=== PATIENT | male | born 1970 | race Caucasian/White ===

== ENCOUNTER 2019-11-30 15:07 | Emergency (ER) | payer BC, SELFPAY ==
[2019-11-30 15:07] VITALS: BP 154/93; PULSE 87; RESP 16; TEMP 36.4; O2SAT 99; BMI 25.1
--- NOTE | 2019-11-30 15:36 | XR_ITS ---
WS: [id number] Facial bones, 3 views, 11/30/2019 Clinical Data: injury Comparison: None. Findings: The facial bones are intact. The orbits show no fractures. The sinuses are clear. The nasal bone and nasal spine are intact. The mandible and maxilla show no fractures. XR/XR facial bones min 3V* [id number] Impression: Negative facial bones.
--- NOTE | 2019-11-30 15:43 | ED_ITS ---
HPI - General Adult General: Chief complaint: General Medical Stated complaint: facial injury Time Seen by Provider: 11/30/19 15:46 Source: patient Mode of arrival: ambulatory Limitations: no limitations History of Present Illness: HPI narrative: Patient comes in today with injury to the left lateral bridge of his nose. Patient reports was pulling nails from a board and his hammer release striking him in the side of his face. Patient has some significant pain to the area. Patient reports injury occurred this morning. Patient has taken 1 hydrocodone early this morning after the incident. Patient appears well. Patient appears in moderate pain. Associated symptoms: Reports headache(s) Review of Systems General: Reports: 10 or more systems reviewed and unremarkable except in HPI and below Skin/Breast: Reports: skin tenderness Neuro: Reports: headache PFSH ED PFSH: Social History Smoking and tobacco status: current every day smoker Physical Exam Const: COMMON NORMALS: no apparent distress and oriented x3 GENERAL APPEARANCE: cooperative HENMT: COMMON NORMALS: normocephalic, external ears normal, EAC's normal and TM's normal bilaterally HEAD & SCALP: normal to inspection and normocephalic FACE & SINUS: other (Swelling and ecchymosis is noted to the lateral left side of his nasal bridge.) NOSE: other (No nasal discharge is noted from the naris, no septal hematoma is noted, swelling is noted to the left naris as compared to the right.) GENERAL EAR: hearing not grossly impaired EXTERNAL EAR: Yes external ears normal EXTERNAL AUDITORY CANAL: EAC's normal TYMPANIC MEMBRANE: TM's normal bilaterally MOUTH: oral and palatal mucosa normal THROAT: posterior oropharynx normal Eye: COMMON NORMALS: PERRL and EOMs intact bilaterally PUPIL: Yes PERRL Neck/C-Spine: COMMON NORMALS: full ROM and no lymphadenopathy Lymph: LYMPHATIC: no lymphedema noted Chest: COMMONS NORMALS: inspection of chest normal and palpation of chest normal Resp: COMMON NORMALS: normal respiratory effort and clear to auscultation bilaterally AUSCULTATION: clear to auscultation bilaterally Cardio: COMMON NORMALS: regular rate and regular rhythm RATE: regular rate RHYTHM: regular rhythm GI: COMMON NORMALS: normal to inspection, nondistended, normoactive bowel sounds and non-tender : COMMON NORMALS: Yes no CVA tenderness BLADDER/KIDNEY EXAM: Yes no CVA tenderness Back/Pelvis: COMMON NORMALS: no CVA tenderness and thoracic and lumbar spine normal to inspection Extremity: COMMON NORMALS: normal to inspection GENERAL: No edema Neuro: COMMON NORMALS: oriented x3, moves all extremities and no focal motor deficits Psych: COMMON NORMALS: mental status grossly normal and cooperative Skin: COMMON NORMALS: no rashes or lesions noted GENERAL SKIN EXAM: no rashes or lesions noted Course Vital Signs: Vital signs: Vital Signs Temperature 97.6 F 11/30/19 16:13 Pulse Rate 67 11/30/19 16:13 Respiratory Rate 16 11/30/19 16:13 Blood Pressure 134/92 11/30/19 16:13 Pulse Oximetry 98 11/30/19 16:13 MDM - General Adult MDM Narrative: Medical decision making narrative: Patient comes in today for complaints of injury to the left facial bones. On exam we note some bruising and swelling to the left lateral nasal bridge area. Exam noted no septal hematoma. Some swelling is noted to the left lateral side of the nose. Skin has a small abrasion. Vital signs are normal. Differential diagnosis includes contusion, fracture, hematoma. X-rays were negative for any fracture. Patient appears well. No focal neural deficits were noted. Reviewed the exam with patient recommended treatment and follow-up conservatively. Patient reports understanding. Discharge Plan Discharge Patient Disposition: Home, Self-Care Clinical Impression: Contusion of face Qualifiers: Encounter type: initial encounter Qualified Code(s): S00.83XA - Contusion of other part of head, initial encounter Condition: Stable Prescriptions: No Action Protonix RF: 0 atenolol RF: 0 clonazepam RF: 0 Discharge Orders: Discharge Order (Routine); Ordered 11/30/19 Ordered By: Aidan Osborne Referrals: Familia Bray MD [Family Provider] - Discharge Diet: Usual diet Discharge Activity: Increase activity as tolerated Patient Instructions: Contusion in Adults (ED) Activity Restrictions/Additional Instructions: Drink plenty of fluids Activity as tolerated Ice or heat to area for comfort Monitor for redness or increased swelling with fever Return to ER as needed Follow-up with primary care in one week Coding Level of Care Code ED Bookbinder Apprentice for Ab Suarez Exam Comprehensive
[2019-11-30] MEDS: HYDROcodone-acetaminophen 7.5-325 mg Tablet 1 TAB PO (15:56)
[2019-11-30 16:13] VITALS: BP 134/92; PULSE 67; RESP 16; TEMP 36.4; O2SAT 98
[2019-11-30 16:56] VITALS: BP 119/78; PULSE 71; RESP 18; TEMP 36.6; O2SAT 98
--- NOTE | 2019-11-30 17:23 | PC.NURSE ---
I agree with this assessment
== END 2019-11-30 16:56 | disposition home or self-care (01) ==
PROVIDERS: Emergency Provider Nurse Practitioner Family; Family Provider Family Medicine
DX: S00.83XA Contusion of other part of head, initial encounter (principal); F17.200 Nicotine dependence, unspecified, uncomplicated; W22.8XXA Striking against or struck by other objects, initial encounter
CPT/HCPCS: 70150; 99281; 99283

== ENCOUNTER 2019-12-07 10:28 | Outpatient (RCR) | payer BC, SELFPAY | END 2020-01-04 23:59 | disposition home or self-care (01) | LOC: SPT 10:28 | PROVIDERS: Family Provider Family Medicine; Referring Provider Anesthesiology; Visit Provider Anesthesiology | DX: G89.4 Chronic pain syndrome (principal); M54.5 Low back pain; M47.816 Spondylosis without myelopathy or radiculopathy, lumbar region; M54.17 Radiculopathy, lumbosacral region; M79.601 Pain in right arm; M12.812 Other specific arthropathies, not elsewhere classified, left shoulder | CPT/HCPCS: 97113; 97162 ==

== ENCOUNTER 2020-01-03 16:07 | Outpatient (CLI) | payer SELFPAY ==
--- NOTE | 2020-01-03 16:20 | MR_ITS ---
WS: [id number] MRI LUMBAR SPINE NONCONTRAST TECHNIQUE: Sagittal T1, T2 and STIR imaging. Axial T1 and T2 imaging. CLINICAL INFORMATION: CHRONIC LOW BACK PAIN, LUMBAR SPONDYLOSIS COMPARISON: None. FINDINGS: Mild lumbar curve. No acute compression. No high-grade central canal stenosis. Mild annular bulging L 4-L5 and L5-S1. Tiny annular fissure L4-5. L1-L2: Normal. L2-L3: No significant disc bulging. Mild facet arthropathy. Spinal canal and foramen are patent. L3-L4: Minimal annular bulging. Moderate facet arthropathy. Mild right and no significant left forami nal narrowing. L4-L5: Mild annular bulging with a small annular fissure. Evidence of interval left hemilaminectomy a nd partial discectomy. Slight effacement of ventral thecal sac. Slight contact of the traversing L5 n erve roots bilaterally with narrowing of the subarticular recess left greater than right. Mild bilate ral foraminal narrowing. Mild/moderate facet arthropathy. L5-S1: Mild annular bulging with a tiny shallow central protrusion. Slight effacement of the ventral thecal sac. No nerve root impingement. Mild facet arthropathy. Spinal canal and foramen are patent. Visualized pelvic bony structures: Normal. Paravertebral soft tissues: Normal. MR/MR lumbar spine wo con* [id number] IMPRESSION: 1. Mild lumbar curve. No acute compression. No high-grade central canal stenos is. 2. Mild annular bulging L4-5 with slight effacement of ventral thecal sac. [place] rowing of the subarticular recess bilaterally with slight encroachment traversi ng L5 nerve roots. Left hemilaminectomy with partial discectomy at this level a ppears new since 2006. 3. Miniscule shallow central protrusion L5-S1 without significant nerve root i mpingement. 4. Mild to moderate facet arthropathy worse at L3-L4 and L4-L5.
== END 2020-01-03 16:08 | disposition home or self-care (01) ==
LOC: RADWPI 16:11
PROVIDERS: Family Provider Family Medicine; PCP Registered Nurse; Visit Provider Anesthesiology
DX: G89.29 Other chronic pain (principal); M47.816 Spondylosis without myelopathy or radiculopathy, lumbar region; M51.27 Other intervertebral disc displacement, lumbosacral region
CPT/HCPCS: 72148

== ENCOUNTER 2020-01-05 06:00 | Outpatient (RCR) | payer SELFPAY | END 2020-02-03 23:59 | disposition home or self-care (01) | LOC: SPT 06:00 | PROVIDERS: Family Provider Family Medicine; PCP Registered Nurse; Referring Provider Anesthesiology; Visit Provider Anesthesiology | DX: G89.4 Chronic pain syndrome (principal); M54.5 Low back pain; M47.816 Spondylosis without myelopathy or radiculopathy, lumbar region; M54.17 Radiculopathy, lumbosacral region; M79.601 Pain in right arm; M12.812 Other specific arthropathies, not elsewhere classified, left shoulder | CPT/HCPCS: 97033; 97110; 97164; G0283 ==

== ENCOUNTER 2020-02-12 10:43 | Outpatient (RCR) | payer SELFPAY | END 2020-02-17 23:00 | disposition home or self-care (01) | LOC: SPT 10:43 | PROVIDERS: PCP Registered Nurse; Referring Provider Anesthesiology; Visit Provider Anesthesiology | DX: M54.5 Low back pain (principal); M25.521 Pain in right elbow; M25.621 Stiffness of right elbow, not elsewhere classified; M25.522 Pain in left elbow | CPT/HCPCS: 97110; G0283 ==

== ENCOUNTER 2021-06-01 01:35 | Inpatient (IN) | payer SELFPAY ==
[2021-06-01] VITALS (9 sets, daily range): BP systolic 109–148; BP diastolic 65–95; PULSE 65–93; RESP 15–17; TEMP 36.6; O2SAT 97–100; BMI 22.9
--- NOTE | 2021-06-01 01:52 | ED_ITS ---
HPI - Psych General: Chief Complaint: ER Hold Stated Complaint: HEARING THINGS Time Seen by Provider: 06/01/21 01:37 Source: patient Mode of arrival: ambulatory Limitations: no limitations History of Present Illness: HPI Narrative: 50-year-old male who states that over the last month to months he is having increasing hallucinations. He states he has been hearing things over the radio any been hearing people talking his living room thinking they are talking about him. He states that he started getting increased paranoia and he feels like people are after him now. He state s he is never had any history of this in the past but is causing extreme anxiousness and he is wanting to get help. Denies any suicidal homicidal thoughts. He states he does drink most days denies any drug use. Associated symptoms: Reports auditory hallucinations and visual hallucinations Review of Systems Const: Denies: fever(s), chills, body aches or change in appetite Eyes: Denies: blurry vision or eye discomfort ENMT: Denies: throat pain or dental pain Card: Denies: chest pain Resp: Denies: dyspnea GI: Denies: abdominal pain, nausea, vomiting or diarrhea : Denies: dysuria Musc: Denies: neck pain or back pain Skin/Breast: Denies: rash Neuro: Denies: headache(s) Psych: Reports: visual hallucinations and auditory hallucinations Prince/Lymph: Denies: easy bruising All/Imm: Denies: urticaria PFSH ED PFSH: Social History Smoking and tobacco status: current every day smoker Physical Exam Const: COMMON NORMALS: no acute distress, patient oriented x3 and healthy appearing HENMT: COMMON NORMALS: normocephalic and atraumatic HEAD & SCALP: normocephalic and atraumatic Eye: COMMON NORMALS: Equal, round and reactive pupils present and EOMs intact bilaterally PUPIL: Yes Equal, round and reactive pupils present Neck/C-Spine: COMMON NORMALS: full ROM and supple Chest: COMMONS NORMALS: normal inspection of the chest and normal palpation of entire chest wall Resp: COMMON NORMALS: normal respiratory effort, No retractions, No use of accessory muscles and clear to auscultation bilaterally AUSCULTATION: clear to auscultation bilaterally Cardio: COMMON NORMALS: regular rate, regular rhythm and No murmurs present (Cardio) RATE: regular rate RHYTHM: regular rhythm GI: COMMON NORMALS: Normal to inspection, nondistended, normoactive bowel sounds present, Soft to palpation, non-tender and no masses PALPATION: Yes Soft to palpation Extremity: COMMON NORMALS: normal to inspection and full ROM Neuro: COMMON NORMALS: patient oriented x3, moves all extremities and no focal motor deficits Psych: COMMON NORMALS: mental status grossly normal, Normal thought process present and cooperative ACTIVITY/MOTOR BEHAVIOR: Yes hyperactivity THOUGHT PROCESS: Normal thought process present THOUGHT CONTENT: Yes Hallucination(s) present Skin: COMMON NORMALS: no rashes or lesions noted and no wounds GENERAL SKIN EXAM: no rashes or lesions noted Course Vital Signs: Vital signs: Vital Signs Pulse Rate 82 06/01/21 03:41 Respiratory Rate 15 06/01/21 04:00 Blood Pressure 148/82 06/01/21 03:41 Pulse Oximetry 98 06/01/21 03:41 MDM - Psych MDM Narrative: Medical decision making narrative: 89 presents here with hallucinations and was placed under 96-hour hold. Patient is medically cleared I spoke to psychiatrist and will admit to the psychiatric unit Lab Data: Labs: Lab Results 06/01/21 06/01/21 06/01/21 Range/Units 02:07 02:07 02:10 WBC 6.4 (4.0-10.0) 10^3/ uL RBC 4.21 (4.1-5.3) 10^6/u L Hgb 15.2 (11.7-16.6) g/dL Hct 42.3 (42.0-52.0) % MCV 100.5 H (80-94) fl MCH 36.1 H (28.0-34.0) pg MCHC 35.9 (30.0-36.0) g/dL RDW 11.7 L (12.1-15.1) % Plt Count 112 L (130-400) 10^3/c mm MPV 9.2 (7.4-10.4) fL Neut % (Auto) 45.0 % Lymph % (Auto) 38.3 % [place] % (Auto) 13.9 % Eos % (Auto) 1.4 % Baso % (Auto) 0.9 % Neut # (Auto) 2.89 (1.8-7.7) 10^3/u L Lymph # (Auto) 2.5 (0.8-4.8) 10^3/u L [place] # (Auto) 0.9 (0.2-0.9) 10^3/u L Eos # (Auto) 0.1 (0.0-0.8) 10^3/u L Baso # (Auto) 0.1 (0.0-0.1) 10^3/u L Nucleated RBC % (a uto) 0 % Nucleated RBCs # 0.0 /100WBC Sodium 136 (136-145) mmol/L Potassium 3.1 L (3.5-5.1) mmol/L Chloride 100 (98-107) mmol/L Carbon Dioxide 20 L (22-29) mmol/L Anion Gap 19.1 H (5-19) BUN 9 (6-20) mg/dL Creatinine 0.5 L (0.7-1.2) mg/dL GFR Calculation 176.0 H (90-130) mL/min Glucose 82 (65-115) mg/dL Calculated Osmolal ity 280 L (285-295) mOsm/k g Calcium 9.0 (8.5-10.5) mg/dL Total Bilirubin 0.6 (0.15-1.2) mg/dL AST 54 H (0-40) U/L ALT 55 H (0-41) U/L Alkaline Phosphata se 79 (40-130) IU/L Total Protein 6.4 L (6.6-8.7) g/dL Albumin 4.2 (3.5-5.2) g/dL Globulin 2.2 (1.3-4.6) g/dL Salicylates < 0.3 L (3-10) mg/dL Urine Opiates Scre en Negative (Negative) ng/mL Acetaminophen < 5.0 L (10-30) ug/mL Ur Barbiturates Sc reen Negative (Negative) ng/mL Ur Phencyclidine S crn Negative (Negative) ng/mL Ur Amphetamines Sc reen Negative (Negative) ng/mL U Benzodiazepines Scrn Negative (Negative) ng/mL Urine Cocaine Scre en Negative (Negative) ng/mL U Marijuana (THC) Screen Negative (Negative) ng/mL Ethyl Alcohol 34 H (0-10) mg/dL Discharge Plan Discharge Patient Disposition: Admitted As Inpatient Admit Provider: Bo Laureano Clinical Impression: Hallucination Condition: Stable Coding Level of Care Code ED Account Collector for Chg Fwd Exam Comprehensive
[2021-06-01] MEDS: LORazepam 2 mg Tablet PO ×2 (01:58→03:28)
[2021-06-01 02:17] LABS: Basophils # 0.1 10^3/uL (0.0-0.1); Basophils % 0.9 %; Eosinophils # 0.1 10^3/uL (0.0-0.8); Eosinophils % 1.4 %; Hematocrit 42.3 % (42.0-52.0); Hemoglobin 15.2 g/dL (11.7-16.6); Lymphocytes # 2.5 10^3/uL (0.8-4.8); Lymphocytes % 38.3 %; Mean Corpuscular HGB Conc 35.9 g/dL (30.0-36.0); Mean Corpuscular Hemoglobin 36.1 pg (28.0-34.0); Mean Corpuscular Volume 100.5 fl (80-94); Mean Platelet Volume 9.2 fL (7.4-10.4); Monocytes # 0.9 10^3/uL (0.2-0.9); Monocytes % 13.9 %; Neutrophils # 2.89 10^3/uL (1.8-7.7); Nucleated Red Blood Cells % 0 %; Platelet Count 112 10^3/cmm (130-400); Red Blood Count 4.21 10^6/uL (4.1-5.3); Red Cell Distribution Width 11.7 % (12.1-15.1); White Blood Count 6.4 10^3/uL (4.0-10.0)
[2021-06-01 02:40] LABS: Alanine Aminotransferase 55 U/L (0-41); Albumin Level 4.2 g/dL (3.5-5.2); Alcohol Level 34 mg/dL (0-10); Alkaline Phosphatase 79 IU/L (40-130); Anion Gap 19.1 (5-19); Aspartate Amino Transferase 54 U/L (0-40); Blood Urea Nitrogen 9 mg/dL (6-20); Carbon Dioxide 20 mmol/L (22-29); Chloride 100 mmol/L (98-107); Globulin 2.2 g/dL (1.3-4.6); Glucose 82 mg/dL (65-115); Osmolality Calculated 280 mOsm/kg (285-295); Potassium 3.1 mmol/L (3.5-5.1); Sodium 136 mmol/L (136-145); Total Bilirubin 0.6 mg/dL (0.15-1.2); Total Protein 6.4 g/dL (6.6-8.7)
[2021-06-01 02:41] LABS: Amphetamines Screen Urine Negative (Negative); Barbiturates Screen Urine Negative (Negative); Benzodiazepines Screen Urine Negative (Negative); Cocaine Screen Urine Negative (Negative); Opiate Screen Urine Negative (Negative); PCP Screen Urine Negative (Negative); THC Screen Urine Negative (Negative)
[2021-06-01 02:41] LABS: Acetaminophen < 5.0 ug/mL (10-30); Salicylate < 0.3 mg/dL (3-10)
[2021-06-01] MEDS: haloperidol 5 mg Tablet PO (03:28)
[2021-06-01] MEDS: nicotine 21 mg Patch 1 PATCH TRANSDERMA (05:47)
[2021-06-01] MEDS: OLANZapine 5 mg ODT PO (05:47)
--- NOTE | 2021-06-01 07:53 | PC.PHAR ---
pt states he takes care of his own medications-pt states he hasnt had his clonazepam since 05/26/21-pt states he thinks he is taking steroids but isnt sure what dr or pharmacy he got from doesnt show any filled on ext med history-pt states he is still taking gabapentin 600mg tid ext med history shows last filled 03/30/21 15d/s
--- NOTE | 2021-06-01 18:33 | PC.RESP ---
Smoking Cessation information sent to patient.
[2021-06-01] MEDS: CLONazepam 0.5 mg Tablet PO (21:34)
[2021-06-02 06:00] VITALS: BP 100/66; PULSE 74; RESP 16; TEMP 36.8; O2SAT 97
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
[2021-06-02] MEDS: CLONazepam 0.5 mg Tablet PO ×3 (09:36→20:54)
[2021-06-02] MEDS: pantoprazole DR 40 mg Tablet PO (09:36)
[2021-06-02] MEDS: ascorbic acid 500 mg Tablet PO (09:36)
[2021-06-02] MEDS: atenolol 50 mg Tablet 100 MG PO (09:37)
[2021-06-02] MEDS: nicotine 21 mg Patch 1 PATCH TRANSDERMA (09:38)
[2021-06-02 14:00] VITALS: BP 114/69; PULSE 76; RESP 16; TEMP 36.7; O2SAT 97
[2021-06-02 20:02] VITALS: BP 101/64; PULSE 86; RESP 18; TEMP 36.8; O2SAT 97
[2021-06-02] MEDS: nicotine 2 mg Gum BUCCAL (20:54)
[2021-06-02] MEDS: OLANZapine 5 mg ODT PO (20:54)
--- NOTE | 2021-06-02 20:55 | PC.NURSE ---
Zyprexa 5mg given for agitation / psychosis.
[2021-06-03 05:47] VITALS: BP 110/62; PULSE 76; RESP 16; TEMP 36.7; O2SAT 97
--- NOTE | 2021-06-03 09:29 | PM.NPN ---
Subjective NPU Subjective: Interval history: Steven presents today reporting that he feels like he is doing okay. He knows that he needs to focus on his recovery and issues surrounding his use. He reports that he has a lot of anxiety and he thinks it is part of the reason why he uses. We discussed some of these considering adding some other medications to assist with his anxiety which he said he would consider. Mental Status Exam MSE Comments: This is a slender, white male, with hospital scrubs on with adequate grooming, and eye contact. No abnormal movements except for some tremulousness and mild psychomotor retardation. Cooperative with exam in no acute distress. Speech was decreased rate and volume. Mood described as anxious; affect congruent. Thought process, organized. Thought content: patient denied any suicidal or homicidal ideation, there were no delusions reported or noted, patient denied any auditory or visual hallucinations. Attention, concentration, and memory appear intact but were not formally tested. He is alert and oriented times three. Insight and judgment are limited. Impulse control is limited. Vitals/I&O/Wt Last Vital Signs Temp 98.1 F 06/03/21 05:47 Pulse 76 06/03/21 05:47 Resp 16 06/03/21 05:47 BP 110/62 06/03/21 05:47 Pulse Ox 97 06/03/21 05:47 Weight last 48 hrs Weight 69.037 kg Weight 69.037 kg Data NPU : 06/01/21 02:07 06/01/21 02:07 A&P Additional A&P Information (1) Hallucination: (2) Alcohol dependence: (3) PTSD (post-traumatic stress disorder): Additional A&P Information This is a 50-year-old, white male, with long history of addiction, but a recent history of trauma and post-traumatic stress disorder, symptom clusters, who endorses that he had been off his medication for a few days, which led to the confusing situation he found himself in, and he is committed to being reconnected with aftercare. RECOMMENDATION AND PLAN: 1. Continue current medication. 2. Encourage individual, group, and milieu therapy. 3. Continue q-15 minute checks for safety. 4. Encourage sober living treatment after discharge at the highest level of care to which he is willing to commit Involuntary Hold Information 96 Hour Hold: 96 Hour Involuntary Admission: Yes 96 Hour Hold Ending Date: 06/06/21 96 Hour Hold Ending Time: 02:51 Attestations NPU Medical Necessity Statement*: .Inpatient hospitalization is medically necessary and the clinically appropriate intervention, at this time. We will monitor medications and make changes as indicated. Likely length of stay is 2-4 days. Coding Level of Care Code Acute It Applications Developer for Ab Suarez
[2021-06-03] MEDS: ascorbic acid 500 mg Tablet PO (09:42)
[2021-06-03] MEDS: pantoprazole DR 40 mg Tablet PO (09:42)
[2021-06-03] MEDS: CLONazepam 0.5 mg Tablet PO ×3 (09:42→21:36)
[2021-06-03] MEDS: nicotine 21 mg Patch 1 PATCH TRANSDERMA (09:49)
[2021-06-03] MEDS: atenolol 50 mg Tablet 100 MG PO (10:15)
[2021-06-03 14:00] VITALS: BP 110/72; PULSE 86; RESP 16; TEMP 36.8; O2SAT 98
[2021-06-03] MEDS: acetaminophen 325 mg Tablet 650 MG PO (14:51)
[2021-06-03 20:10] VITALS: BP 104/64; PULSE 69; RESP 18; TEMP 36.7; O2SAT 98
[2021-06-03] MEDS: nicotine 2 mg Gum BUCCAL (21:36)
[2021-06-03] MEDS: trazodone 50 mg Tablet PO (21:51)
[2021-06-03] MEDS: hyDROXYzine 25 mg Capsule 50 MG PO (21:51)
[2021-06-04 06:00] VITALS: BP 102/67; PULSE 58; RESP 18; TEMP 36.8; O2SAT 97
[2021-06-04] MEDS: ascorbic acid 500 mg Tablet PO (09:42)
[2021-06-04] MEDS: atenolol 50 mg Tablet 100 MG PO (09:42)
[2021-06-04] MEDS: CLONazepam 0.5 mg Tablet PO ×3 (09:42→21:38)
[2021-06-04] MEDS: pantoprazole DR 40 mg Tablet PO (09:42)
[2021-06-04] MEDS: acetaminophen 325 mg Tablet 650 MG PO ×2 (11:19→21:56)
[2021-06-04 14:00] VITALS: BP 114/78; PULSE 87; RESP 18; TEMP 35.8; O2SAT 99
[2021-06-04] MEDS: nicotine 21 mg Patch 1 PATCH TRANSDERMA (15:07)
--- NOTE | 2021-06-04 17:52 | P.PN_ITS ---
Subjective NPU Subjective: Interval history: I spoke with Dr. Laureano and met with the treatment team to discuss the patient's progress. He was drinking heavily and was paranoid and ended up getting tased by the police. Dr. Laureano restarted him on medications. Patient describes his stress over the past year. He was not able to do physical therapy as ordered due to the Covid pandemic. He has applied for disability but was turned down last week. They have suggested he appeal. He says that he drank heavily for a few days prior to admission and did not sleep. He says he is feeling better now. He slept better 2 nights ago when he took the Zyprexa Zydis. He did not take it last night, taking trazodone and Seroquel instead, and did not sleep as well. He says he is not having any suicidal ideation or homicidal ideation today. He has no medication side effects. He has had no al cohol withdrawal symptoms. We talked about discharge plans. He is hoping to have a job in [place] working for [employer], as he has in the past. Mental Status Exam MSE Comments: This is a slender, white male, with hospital scrubs on with adequate grooming, and eye contact. No abnormal movements. Cooperative with exam in no acute distress. Speech was at a regular rate and normal volume. Mood dionna cribed as anxious; affect congruent. Thought process, organized. Thought content: patient denied any suicidal or homicidal ideation, there were no delusions reported or noted, patient denied any auditory or visual hallucinations. Attention, concentration, and memory appear intact but were not formally tested. He is alert and oriented times three. Insight and judgment are improved. Impulse control is improved. Vitals/I&O/Wt Last Vital Signs Temp 98.0 F 06/05/21 06:00 Pulse 67 06/05/21 06:00 Resp 18 06/05/21 06:00 BP 97/57 06/05/21 06:00 Pulse Ox 95 06/05/21 06:00 Weight last 48 hrs Weight 69.037 kg Weight 69.037 kg Data NPU : 06/01/21 02:07 06/01/21 02:07 A&P Assessment and plan (1) Hallucination: Status: Acute (2) Alcohol dependence: Status: Acute (3) PTSD (post-traumatic stress disorder): Status: Acute Additional A&P Information This is a 50-year-old, white male, with long history of addiction, but a recent history of trauma and post-traumatic stress disorder, symptom clusters, who endorses that he had been off his medication for a few days, which led to the confusing situation he found himself in, and he is committed to being reconnected with aftercare. RECOMMENDATION AND PLAN: 1. Continue current medication. 2. Encourage individual, group, and milieu therapy. 3. Continue q-15 minute checks for safety. 4. Encourage sober living treatment after discharge at the highest level of care to which he is willing to commit Involuntary Hold Information 96 Hour Hold: 96 Hour Involuntary Admission: Yes 96 Hour Hold Ending Date: 06/06/21 96 Hour Hold Ending Time: 02:51 Attestations NPU Medical Necessity Statement*: Inpatient hospitalization is medically necessary and the clinically appropriate intervention, at this time. We will monitor medications and make changes as indicated. Likely length of stay is 1-3 days. 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
[2021-06-04 21:36] VITALS: BP 110/72; PULSE 80; RESP 19; TEMP 36.8; O2SAT 99
[2021-06-04] MEDS: trazodone 50 mg Tablet PO (21:38)
[2021-06-04] MEDS: hyDROXYzine 25 mg Capsule 50 MG PO (21:38)
[2021-06-05 06:00] VITALS: BP 97/57; PULSE 67; RESP 18; TEMP 36.7; O2SAT 95
[2021-06-05] MEDS: acetaminophen 325 mg Tablet 650 MG PO ×2 (07:04→15:09)
[2021-06-05] MEDS: pantoprazole DR 40 mg Tablet PO (08:52)
[2021-06-05] MEDS: ascorbic acid 500 mg Tablet PO (08:52)
[2021-06-05] MEDS: CLONazepam 0.5 mg Tablet PO ×2 (08:52→15:09)
[2021-06-05] MEDS: nicotine 21 mg Patch 1 PATCH TRANSDERMA (09:24)
[2021-06-05] MEDS: atenolol 50 mg Tablet 100 MG PO (09:45)
--- NOTE | 2021-06-05 12:18 | NPU.GN ---
[facility] Unit Group Topic:Thought Processing General Mood of Group: The patient come to group willingly. The patient was on time, good hygiene and properly dressed. The group discussed how the mind thinks and discussed negative thoughts and how we process those negative thoughts. The patient did participate in the group. The patient were all gave a thought table to be able to list specific negative thoughts and were able to come up with different ways to cope with those thoughts. The group was able to go outside for fresh air, which in turn helped the group to open up more. Information about the NPU was discussed, information about the routine for NPU, the doctor and nursing staff as well as administrator social welfare and how they each play a part in their care while here. 96 hr holds and 21 day holds were also explained as well.
[2021-06-05 16:06] VITALS: BP 97/57; PULSE 67; RESP 18; TEMP 36.7; O2SAT 95
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
== END 2021-06-05 18:00 | disposition home or self-care (01) | DRG 880 ==
LOC: ER 03:27 → ER IP 04:30 → NP 14:17
PROVIDERS: Admitting Provider Psychiatry & Neurology Psychiatry; Emergency Provider Emergency Medicine; Visit Provider Psychiatry & Neurology Child & Adolescent Psychiatry
DX: R44.3 Hallucinations, unspecified (principal); F17.210 Nicotine dependence, cigarettes, uncomplicated; F40.00 Agoraphobia, unspecified; F43.10 Post-traumatic stress disorder, unspecified; F10.20 Alcohol dependence, uncomplicated; Z81.1 Family history of alcohol abuse and dependence
CPT/HCPCS: 80053; 80306; 80307; 85025; 99285

== ENCOUNTER 2021-06-13 21:11 | Inpatient (IN) | payer SELFPAY ==
[2021-06-13 21:19] VITALS: BP 134/81; PULSE 80; RESP 20; TEMP 37; O2SAT 95; BMI 22.2
--- NOTE | 2021-06-13 21:19 | W.ED.PSYCH ---
HPI - Psych General: Chief Complaint: Psychiatric Symptoms Stated Complaint: HALLICINATIONS Time Seen by Provider: 06/13/21 21:14 Source: patient and EMS Mode of arrival: EMS Limitations: no limitations History of Present Illness: HPI Narrative: 50-year-old male has a history of alcoholism actually admitted a little over a week ago for hallucinations. He states he was doing better but since being home he has had hallucinations again. He states he been taking his meds he has been drinking alcohol as well. He states that he keeps hearing voices and hearing things over the radio. He denies any suicidal ideation or homicidality he states he would like to be admitted again to get help. Associated symptoms: Reports auditory hallucinations Review of Systems Const: Denies: fever(s), chills, body aches or change in appetite Eyes: Denies: blurry vision or eye discomfort ENMT: Denies: throat pain or dental pain Card: Denies: chest pain Resp: Denies: dyspnea GI: Denies: abdominal pain, nausea, vomiting or diarrhea : Denies: dysuria Musc: Denies: neck pain or back pain Skin/Breast: Denies: rash Neuro: Denies: headache(s) Psych: Reports: auditory hallucinations Prince/Lymph: Denies: easy bruising All/Imm: Denies: urticaria PFSH ED PFSH: Social History Smoking and tobacco status: current every day smoker Physical Exam Const: COMMON NORMALS: no acute distress, patient oriented x3 and healthy appearing HENMT: COMMON NORMALS: normocephalic and atraumatic HEAD & SCALP: normocephalic and atraumatic Eye: COMMON NORMALS: Equal, round and reactive pupils present and EOMs intact bilaterally PUPIL: Yes Equal, round and reactive pupils present Neck/C-Spine: COMMON NORMALS: full ROM and supple Chest: COMMONS NORMALS: normal inspection of the chest and normal palpation of entire chest wall Resp: COMMON NORMALS: normal respiratory effort, No retractions, No use of accessory muscles and clear to auscultation bilaterally AUSCULTATION: clear to auscultation bilaterally Cardio: COMMON NORMALS: regular rate, regular rhythm and No murmurs present (Cardio) RATE: regular rate RHYTHM: regular rhythm GI: COMMON NORMALS: Normal to inspection, nondistended, normoactive bowel sounds present, Soft to palpation, non-tender and no masses PALPATION: Yes Soft to palpation Extremity: COMMON NORMALS: normal to inspection and full ROM Neuro: COMMON NORMALS: patient oriented x3, moves all extremities and no focal motor deficits Psych: COMMON NORMALS: mental status grossly normal, Normal thought process present and cooperative THOUGHT PROCESS: Normal thought process present THOUGHT CONTENT: Yes Hallucination(s) present Skin: COMMON NORMALS: no rashes or lesions noted and no wounds GENERAL SKIN EXAM: no rashes or lesions noted Course Vital Signs: Vital signs: Vital Signs Temperature 98.6 F 06/13/21 21:44 Pulse Rate 80 06/13/21 21:44 Respiratory Rate 20 H 06/13/21 21:44 Blood Pressure 134/87 06/13/21 21:44 Pulse Oximetry 95 06/13/21 21:44 MDM - Psych MDM Narrative: Medical decision making narrative: Patient presents here with hallucinations. Patient is voluntarily wanting to be admitted and I spoke to the psychiatrist and will admit. Patient is not suicidal or homicidal. He has been pleasant and stable while here. Lab Data: Labs: Lab Results 06/13/21 06/13/21 06/13/21 Range/Units 21:32 21:32 21:50 WBC 5.2 (4.0-10.0) 10^3/ uL RBC 4.46 (4.1-5.3) 10^6/u L Hgb 16.5 (11.7-16.6) g/dL Hct 47.3 (42.0-52.0) % MCV 106.1 H (80-94) fl MCH 37.0 H (28.0-34.0) pg MCHC 34.9 (30.0-36.0) g/dL RDW 12.3 (12.1-15.1) % Plt Count 274 (130-400) 10^3/c mm MPV 8.5 (7.4-10.4) fL Neut % (Auto) 33.7 % Lymph % (Auto) 46.7 % [place] % (Auto) 12.1 % Eos % (Auto) 4.2 % Baso % (Auto) 2.7 % Neut # (Auto) 1.76 L (1.8-7.7) 10^3/u L Lymph # (Auto) 2.4 (0.8-4.8) 10^3/u L [place] # (Auto) 0.6 (0.2-0.9) 10^3/u L Eos # (Auto) 0.2 (0.0-0.8) 10^3/u L Baso # (Auto) 0.1 (0.0-0.1) 10^3/u L Nucleated RBC % (a uto) 0 % Nucleated RBCs # 0.0 /100WBC Sodium 143 (136-145) mmol/L Potassium 3.5 (3.5-5.1) mmol/L Chloride 104 (98-107) mmol/L Carbon Dioxide 25 (22-29) mmol/L Anion Gap 17.5 (5-19) BUN 8 (6-20) mg/dL Creatinine 0.6 L (0.7-1.2) mg/dL GFR Calculation 142.6 H (90-130) mL/min Glucose 118 H (65-115) mg/dL Calculated Osmolal ity 295 (285-295) mOsm/k g Calcium 8.5 (8.5-10.5) mg/dL Total Bilirubin 0.2 (0.15-1.2) mg/dL AST 30 (0-40) U/L ALT 39 (0-41) U/L Alkaline Phosphata se 76 (40-130) IU/L Total Protein 6.6 (6.6-8.7) g/dL Albumin 4.2 (3.5-5.2) g/dL Globulin 2.4 (1.3-4.6) g/dL Salicylates < 0.3 L (3-10) mg/dL Urine Opiates Scre en Negative (Negative) ng/mL Acetaminophen < 5.0 L (10-30) ug/mL Ur Barbiturates Sc reen Negative (Negative) ng/mL Ur Phencyclidine S crn Negative (Negative) ng/mL Ur Amphetamines Sc reen Negative (Negative) ng/mL U Benzodiazepines Scrn Negative (Negative) ng/mL Urine Cocaine Scre en Negative (Negative) ng/mL U Marijuana (THC) Screen Negative (Negative) ng/mL Ethyl Alcohol 233 H (0-10) mg/dL Discharge Plan Discharge Patient Disposition: Admitted As Inpatient Clinical Impression: Alcohol dependence, Auditory hallucination Condition: Stable Coding Level of Care Code ED Pump Operator Byproducts for Chg Fwd Exam Comprehensive
[2021-06-13] MEDS: HYDROcodone-acetaminophen 5-325 mg Tablet 1 TAB PO (21:43)
[2021-06-13 21:44] VITALS: BP 134/87; PULSE 80; RESP 20; TEMP 37; O2SAT 95
[2021-06-13 21:51] LABS: Basophils # 0.1 10^3/uL (0.0-0.1); Basophils % 2.7 %; Eosinophils # 0.2 10^3/uL (0.0-0.8); Eosinophils % 4.2 %; Hematocrit 47.3 % (42.0-52.0); Hemoglobin 16.5 g/dL (11.7-16.6); Lymphocytes # 2.4 10^3/uL (0.8-4.8); Lymphocytes % 46.7 %; Mean Corpuscular HGB Conc 34.9 g/dL (30.0-36.0); Mean Corpuscular Volume 106.1 fl (80-94); Mean Platelet Volume 8.5 fL (7.4-10.4); Monocytes # 0.6 10^3/uL (0.2-0.9); Monocytes % 12.1 %; Neutrophils # 1.76 10^3/uL (1.8-7.7); Neutrophils % 33.7 %; Nucleated Red Blood Cells % 0 %; Platelet Count 274 10^3/cmm (130-400); Red Blood Count 4.46 10^6/uL (4.1-5.3); Red Cell Distribution Width 12.3 % (12.1-15.1); White Blood Count 5.2 10^3/uL (4.0-10.0)
[2021-06-13 22:08] LABS: Alanine Aminotransferase 39 U/L (0-41); Albumin Level 4.2 g/dL (3.5-5.2); Alcohol Level 233 mg/dL (0-10); Alkaline Phosphatase 76 IU/L (40-130); Anion Gap 17.5 (5-19); Aspartate Amino Transferase 30 U/L (0-40); Blood Urea Nitrogen 8 mg/dL (6-20); Calcium 8.5 mg/dL (8.5-10.5); Carbon Dioxide 25 mmol/L (22-29); Chloride 104 mmol/L (98-107); Globulin 2.4 g/dL (1.3-4.6); Glomerular Filtration Rate 142.6 mL/min (90-130); Glucose 118 mg/dL (65-115); Osmolality Calculated 295 mOsm/kg (285-295); Potassium 3.5 mmol/L (3.5-5.1); Sodium 143 mmol/L (136-145); Total Bilirubin 0.2 mg/dL (0.15-1.2); Total Protein 6.6 g/dL (6.6-8.7)
[2021-06-13 22:10] LABS: Acetaminophen < 5.0 ug/mL (10-30); Creatinine Clr Calc Pharmacy 149.8392; Salicylate < 0.3 mg/dL (3-10)
[2021-06-13 22:17] LABS: Amphetamines Screen Urine Negative (Negative); Barbiturates Screen Urine Negative (Negative); Benzodiazepines Screen Urine Negative (Negative); Cocaine Screen Urine Negative (Negative); Opiate Screen Urine Negative (Negative); PCP Screen Urine Negative (Negative); THC Screen Urine Negative (Negative)
[2021-06-13 22:41] VITALS: BP 108/82; PULSE 92; RESP 18; TEMP 36.3; O2SAT 95
[2021-06-14] MEDS: acetaminophen 325 mg Tablet 650 MG PO ×3 (00:43→15:08)
[2021-06-14] MEDS: nicotine 2 mg Gum BUCCAL (00:44)
[2021-06-14] MEDS: LORazepam 2 mg Tablet PO (00:44)
[2021-06-14] MEDS: pantoprazole DR 40 mg Tablet PO (03:16)
--- NOTE | 2021-06-14 05:05 | PC.NURSE ---
PRN 0043 administered tylenol 650mg for a headache, administered Ativan 2mg for CIWA score of 12 Reevaluated pt within 30mins of administration and symptoms had improved.
[2021-06-14 06:00] VITALS: BP 117/56; PULSE 94; RESP 19; TEMP 36.6; O2SAT 95
[2021-06-14] MEDS: nicotine 21 mg Patch 1 PATCH TRANSDERMA (09:19)
[2021-06-14] MEDS: folic acid 1 mg Tablet PO (09:20)
[2021-06-14] MEDS: CLONazepam 0.5 mg Tablet PO ×3 (09:20→20:44)
[2021-06-14] MEDS: ascorbic acid 500 mg Tablet PO (09:20)
[2021-06-14] MEDS: thiamine 100 mg Tablet PO (09:20)
[2021-06-14] MEDS: multivitamin therapeutic Tablet 1 TAB PO (09:20)
[2021-06-14] MEDS: gabapentin 300 mg Capsule 600 MG PO ×3 (09:21→20:44)
[2021-06-14] MEDS: atenolol 50 mg Tablet 100 MG PO (09:55)
[2021-06-14 13:55] VITALS: BP 128/75; PULSE 82; RESP 20; TEMP 36.8; O2SAT 93
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
[2021-06-14] MEDS: hyDROXYzine 25 mg Capsule 50 MG PO (20:44)
[2021-06-14 21:40] VITALS: BP 118/79; PULSE 80; RESP 18; TEMP 36.9; O2SAT 98
[2021-06-15] MEDS: LORazepam 2 mg Tablet PO (04:31)
[2021-06-15 06:00] VITALS: BP 131/79; PULSE 80; RESP 18; TEMP 36.9; O2SAT 97
[2021-06-15] MEDS: nicotine 21 mg Patch 1 PATCH TRANSDERMA (06:34)
[2021-06-15] MEDS: hyDROXYzine 25 mg Capsule 50 MG PO (06:37)
[2021-06-15] MEDS: acetaminophen 325 mg Tablet 650 MG PO ×3 (06:37→19:44)
[2021-06-15] MEDS: atenolol 50 mg Tablet 100 MG PO (07:54)
[2021-06-15] MEDS: thiamine 100 mg Tablet PO (07:54)
[2021-06-15] MEDS: CLONazepam 0.5 mg Tablet PO ×3 (07:54→19:44)
[2021-06-15] MEDS: gabapentin 300 mg Capsule 600 MG PO ×3 (07:54→19:44)
[2021-06-15] MEDS: folic acid 1 mg Tablet PO (07:55)
[2021-06-15] MEDS: multivitamin therapeutic Tablet 1 TAB PO (07:55)
[2021-06-15] MEDS: ascorbic acid 500 mg Tablet PO (07:55)
[2021-06-15] MEDS: buPROPion XL (24 HR) 150 mg Tablet PO (08:18)
[2021-06-15 14:00] VITALS: BP 124/68; PULSE 68; RESP 18; TEMP 36.2; O2SAT 98
--- NOTE | 2021-06-15 17:17 | PM.NPN ---
Subjective NPU Subjective: Interval history: Thank you today reporting that he is doing little better. He is doing okay with Wellbutrin. Discussed the possibility of naltrexone again and he understood and agreed proceed as documented in his note. He reports that he is very desirous of discontinuing his drinking and smoking behaviors but still seems a bit ambivalent about what is treatment intentions are. We discussed his sleep difficulty and the fact that sleep continues to be difficult during alcohol withdrawal and that it takes time to restore normal sleep architecture during and immediately after active use. Mental Status Exam MSE Comments: This is a slender, white male, with hospital scrubs on with adequate grooming, and eye contact. No abnormal movements except for mild psychomotor retardation, which is resolving. Cooperative with exam in no acute distress. Speech was normal rate and normal volume. Mood described as anxious; affect congruent. Thought process, organized. Thought content: patient denied any suicidal or homicidal ideation, there were no delusions reported or noted, patient denied any auditory or visual hallucinations. Attention, concentration, and memory appear intact but were not formally tested. He is alert and oriented times three. Insight and judgment are limited, but improving. Impulse control is limited. Vitals/I&O/Wt Last Vital Signs Temp 97.2 F L 06/15/21 14:00 Pulse 68 06/15/21 14:00 Resp 18 06/15/21 14:00 BP 124/68 06/15/21 14:00 Pulse Ox 98 06/15/21 14:00 Weight last 48 hrs Weight 70.307 kg Data NPU : 06/13/21 21:32 06/13/21 21:32 A&P Additional A&P Information (1) Auditory hallucination: (2) PTSD (post-traumatic stress disorder): (3) Alcohol dependence: Additional A&P Information This is a 50-year-old, white male, with long history of addiction, but a recent history of trauma and post-traumatic stress disorder, symptom clusters, who endorses that he had not been on track with treatment in his recovery after his recent discharge. RECOMMENDATION AND PLAN: 1. Continue current medication. Continue Wellbutrin XL 150 mg p.o. every morning for mood anxiety and smoking cessation, and add naltrexone 50 mg p.o. every morning to assist with his drinking. 2. Encourage individual, group, and milieu therapy. 3. Continue q-15 minute checks for safety. 4. Encourage sober living treatment after discharge at the highest level of care to which he is willing to commit Involuntary Hold Information 96 Hour Hold: 96 Hour Involuntary Admission: No 96 Hour Hold Ending Date: 06/06/21 96 Hour Hold Ending Time: 02:51 Attestations NPU Medical Necessity Statement*: Inpatient hospitalization is medically necessary and the clinically appropriate intervention at this time. We will monitor medications and make changes as indicated. Likely length of stay 1-3 days. Coding Level of Care Code Acute Healthcare Consulting Manager for Ab Suarez
--- NOTE | 2021-06-15 18:06 | PC.RESP ---
SMOKING CESSATION INFORMATION SENT TO PATIENT.
[2021-06-15] MEDS: trazodone 50 mg Tablet PO (19:44)
[2021-06-15 22:00] VITALS: BP 124/86; PULSE 92; RESP 18; TEMP 36.7; O2SAT 96
[2021-06-16] MEDS: trazodone 50 mg Tablet PO (01:31)
[2021-06-16] MEDS: LORazepam 2 mg Tablet PO (01:31)
--- NOTE | 2021-06-16 01:35 | PC.NURSE ---
PRN 0135 Administered 2mg Ativan for CIWA score of 10. Pt cannot stay asleep. Will continue to monitor pt until end of shift.
[2021-06-16 06:00] VITALS: BP 110/67; PULSE 89; RESP 18; TEMP 36.7; O2SAT 97
--- NOTE | 2021-06-16 09:06 | PM.NPN ---
Mental Status Exam MSE Comments: This is a slender, white male, with hospital scrubs on with adequate grooming, and eye contact. No abnormal movements except for mild psychomotor retardation, which is resolving some residual tremulousness remains. Cooperative with exam in no acute distress. Speech was normal rate and normal volume. Mood described as little better, I think I'll be okay if I go; affect congruent. Thought process, organized. Thought content: patient denied any suicidal or homicidal ideation, there were no delusions reported or noted, patient denied any auditory or visual hallucinations. Attention, concentration, and memory appear intact but were not formally tested. He is alert and oriented times three. Insight and judgment are limited, but improving. Impulse control is limited, but improving. Vitals/I&O/Wt Last Vital Signs Temp 98.1 F 06/16/21 06:00 Pulse 89 06/16/21 06:00 Resp 18 06/16/21 06:00 BP 110/67 06/16/21 06:00 Pulse Ox 97 06/16/21 06:00 Weight last 48 hrs Weight 70.307 kg Data NPU : 06/13/21 21:32 06/13/21 21:32 A&P Additional A&P Information (1) Auditory hallucination: (2) PTSD (post-traumatic stress disorder): (3) Alcohol dependence: This is a 50-year-old, white male, with long history of addiction, but a recent history of trauma and post-traumatic stress disorder, symptom clusters, who endorses that he had not been on track with treatment in his recovery after his recent discharge. RECOMMENDATION AND PLAN: 1. Continue current medication. Plan for discharge today. 2. Encourage individual, group, and milieu therapy. 3. Continue q-15 minute checks for safety. 4. Encourage sober living treatment after discharge at the highest level of care to which he is willing to commit Involuntary Hold Information 96 Hour Hold: 96 Hour Involuntary Admission: No 96 Hour Hold Ending Date: 06/06/21 96 Hour Hold Ending Time: 02:51 Attestations NPU Medical Necessity Statement*: Inpatient hospitalization is medically necessary and the clinically appropriate intervention at this time. We will monitor medications and make changes as indicated. Likely length of stay 1-2 days. Coding Level of Care Code Acute Lawnmower Mechanic for Ab Suarez
[2021-06-16] MEDS: thiamine 100 mg Tablet PO (09:21)
[2021-06-16] MEDS: CLONazepam 0.5 mg Tablet PO ×3 (09:21→21:37)
[2021-06-16] MEDS: buPROPion XL (24 HR) 150 mg Tablet PO (09:21)
[2021-06-16] MEDS: folic acid 1 mg Tablet PO (09:21)
[2021-06-16] MEDS: gabapentin 300 mg Capsule 600 MG PO ×3 (09:22→21:37)
[2021-06-16] MEDS: multivitamin therapeutic Tablet 1 TAB PO (09:22)
[2021-06-16] MEDS: ascorbic acid 500 mg Tablet PO (09:22)
[2021-06-16] MEDS: atenolol 50 mg Tablet 100 MG PO (09:22)
[2021-06-16] MEDS: naltrexone hcl 50 mg Tablet PO (09:26)
[2021-06-16] MEDS: nicotine 21 mg Patch 1 PATCH TRANSDERMA (10:43)
[2021-06-16] MEDS: acetaminophen 325 mg Tablet 650 MG PO (15:47)
[2021-06-16 20:17] VITALS: BP 114/76; PULSE 75; RESP 18; TEMP 36.7; O2SAT 96
[2021-06-16] MEDS: hyDROXYzine 25 mg Capsule 50 MG PO (21:38)
[2021-06-16] MEDS: OLANZapine 5 mg ODT PO (21:38)
--- NOTE | 2021-06-16 21:40 | PC.NURSE ---
pt requesting meds for increased anxiety and something to turn my brain off . vistaril 50mg po for anxiety and zyprexa zydis 5mg po for increased agitation given.
[2021-06-17] MEDS: trazodone 50 mg Tablet PO (01:03)
--- NOTE | 2021-06-17 01:10 | PC.NURSE ---
pt requesting sleep med, trazodone 50mg po given.
--- NOTE | 2021-06-17 02:00 | PC.NURSE ---
pt resting quietly with both eyes closed.
[2021-06-17 06:00] VITALS: BP 119/80; PULSE 89; RESP 17; TEMP 36.8; O2SAT 97; BMI 22.2
[2021-06-17] MEDS: acetaminophen 325 mg Tablet 650 MG PO (06:38)
[2021-06-17] MEDS: nicotine 2 mg Gum BUCCAL (06:38)
[2021-06-17] MEDS: naltrexone hcl 50 mg Tablet PO (09:44)
[2021-06-17] MEDS: CLONazepam 0.5 mg Tablet PO (09:45)
[2021-06-17] MEDS: folic acid 1 mg Tablet PO (09:45)
[2021-06-17] MEDS: gabapentin 300 mg Capsule 600 MG PO (09:45)
[2021-06-17] MEDS: ascorbic acid 500 mg Tablet PO (09:45)
[2021-06-17] MEDS: thiamine 100 mg Tablet PO (09:45)
[2021-06-17] MEDS: atenolol 50 mg Tablet 100 MG PO (09:45)
[2021-06-17] MEDS: multivitamin therapeutic Tablet 1 TAB PO (09:45)
[2021-06-17] MEDS: buPROPion XL (24 HR) 150 mg Tablet PO (09:45)
[2021-06-17] MEDS: nicotine 21 mg Patch 1 PATCH TRANSDERMA (10:05)
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
[2021-06-17 11:23] VITALS: BP 119/80; PULSE 89; RESP 17; TEMP 36.8; O2SAT 97
== END 2021-06-17 11:25 | disposition home or self-care (01) | DRG 880 ==
LOC: ER 22:19 → NP 22:28
PROVIDERS: Admitting Provider Psychiatry & Neurology Child & Adolescent Psychiatry; Emergency Provider Emergency Medicine; Visit Provider Psychiatry & Neurology Psychiatry
DX: R44.0 Auditory hallucinations (principal); F10.20 Alcohol dependence, uncomplicated; F17.210 Nicotine dependence, cigarettes, uncomplicated; F43.10 Post-traumatic stress disorder, unspecified
CPT/HCPCS: 80053; 80306; 80307; 85025; 99285

== ENCOUNTER 2021-07-14 21:33 | Inpatient (IN) | payer SELFPAY ==
[2021-07-14 21:35] VITALS: PULSE 78; RESP 18; TEMP 36.4; O2SAT 98; BMI 22.2
--- NOTE | 2021-07-14 21:45 | W.ED.PSYCH ---
Documented by User: Mukesh Chang DO 07/15/21 07:31 HPI - Psych General: Chief Complaint: ER Hold Stated Complaint: SI Time Seen by Provider: 07/14/21 21:40 History of Present Illness: HPI Narrative: 50-year-old male with a history of PTSD. He has multiple admissions for suicidal ideation. He presents with suicidal ideation. He also says he has homicidal ideation. He has been drinking today. He was last admitted last month. Similar complaints at that time. He denies any medical illness such as fever, diarrhea, shortness of breath, cough, etc. MD complaint: suicidal ideation Onset (ago): hour(s) Duration: constant History of same: Yes Exacerbating factors: alcohol Context: recent alcohol abuse Associated psychiatric symptoms: depression, suicidal ideation and homicidal ideation Associated symptoms: Deny auditory hallucinations or visual hallucinations If self harm: admits thoughts of self harm Review of Systems Const: Denies: fever(s) or chills Card: Denies: chest pain or edema Resp: Denies: dyspnea, productive cough or non-productive cough GI: Denies: abdominal pain, nausea, vomiting or diarrhea : Denies: difficulty urinating Neuro: Denies: headache(s) Psych: Denies: visual hallucinations or auditory hallucinations PFS ED PFSH: Medical History (Updated 07/16/21 @ 11:46 by Claudia Parada) Psychiatric care Social History Smoking and tobacco status: current every day smoker Physical Exam Const: GENERAL APPEARANCE: cooperative; not ill appearing HENMT: COMMON NORMALS: normocephalic HEAD & SCALP: normocephalic Eye: COMMON NORMALS: Equal, round and reactive pupils present and EOMs intact bilaterally PUPIL: Yes Equal, round and reactive pupils present Chest: COMMONS NORMALS: normal inspection of the chest Resp: COMMON NORMALS: normal respiratory effort, No use of accessory muscles and clear to auscultation bilaterally AUSCULTATION: clear to auscultation bilaterally Cardio: COMMON NORMALS: regular rate and regular rhythm RATE: regular rate RHYTHM: regular rhythm GI: COMMON NORMALS: Normal to inspection, nondistended, normoactive bowel sounds present and Soft to palpation PALPATION: Yes Soft to palpation Extremity: COMMON NORMALS: no pedal edema Course Vital Signs: Vital signs: Vital Signs Temperature 98.2 F 07/17/21 14:00 Pulse Rate 72 07/17/21 14:00 Respiratory Rate 16 07/17/21 14:00 Blood Pressure 121/81 07/17/21 14:00 Pulse Oximetry 94 07/17/21 14:00 MDM - Psych MDM Narrative: Medical decision making narrative: Patient is medically stable. His alcohol is quite elevated at 276. He will have a repeat alcohol at 0300. if he remains suicidal, we will attempt placement at that point. Currently we have no beds available at our facility. We will notify other facilities of need for a bed when alcohol is appropriate. Discharges may happen at our facility later this morning, which would facilitate admission here should that happen if placement elsewhere cannot be found. [[id number]] the patient will be checked out to Dr. Rodriguez at shift change. Lab Data: Labs: Lab Results 07/14/21 07/14/21 07/14/21 21:30 21:30 21:38 WBC 5.9 10^3/uL 10^3/ uL (4.0-10.0) RBC 4.63 10^6/uL 10^6 /uL (4.1-5.3) Hgb 16.6 g/dL g/dL (11.7-16.6) Hct 47.2 % % (42.0-52.0) MCV 101.9 fl H fl (80-94) MCH 35.9 pg H pg (28.0-34.0) MCHC 35.2 g/dL g/dL (30.0-36.0) RDW 11.9 % L % (12.1-15.1) Plt Count 208 10^3/cmm 10^3 /cmm (130-400) MPV 8.7 fL fL (7.4-10.4) Neut % (Auto) 40.7 % % Lymph % (Auto) 44.7 % % [place] % (Auto) 11.3 % % Eos % (Auto) 1.7 % % Baso % (Auto) 1.4 % % Neut # (Auto) 2.41 10^3/uL 10^3 /uL (1.8-7.7) Lymph # (Auto) 2.6 10^3/uL 10^3/ uL (0.8-4.8) [place] # (Auto) 0.7 10^3/uL 10^3/ uL (0.2-0.9) Eos # (Auto) 0.1 10^3/uL 10^3/ uL (0.0-0.8) Baso # (Auto) 0.1 10^3/uL 10^3/ uL (0.0-0.1) Nucleated RBC % (a uto) 0 % % Nucleated RBCs # 0.0 /100WBC /100W BC Sodium 139 mmol/L mmol/L (136-145) Potassium 4.0 mmol/L mmol/L (3.5-5.1) Chloride 100 mmol/L mmol/L (98-107) Carbon Dioxide 26 mmol/L mmol/L (22-29) Anion Gap 17.0 (5-19) BUN 7 mg/dL mg/dL (6-20) Creatinine 0.8 mg/dL mg/dL (0.7-1.2) GFR Calculation 102.3 mL/min mL/m in (90-130) Glucose 155 mg/dL H mg/dL (65-115) Calculated Osmolal ity 289 mOsm/kg mOsm/ kg (285-295) Calcium 9.2 mg/dL mg/dL (8.5-10.5) Total Bilirubin 0.4 mg/dL mg/dL (0.15-1.2) AST 53 U/L H U/L (0-40) ALT 39 U/L U/L (0-41) Alkaline Phosphata se 94 IU/L IU/L (40-130) Total Protein 6.7 g/dL g/dL (6.6-8.7) Albumin 4.3 g/dL g/dL (3.5-5.2) Globulin 2.4 g/dL g/dL (1.3-4.6) Urine Color Straw (Yellow) Urine Appearance Clear (CLEAR) Urine pH 5 (5-7) Ur Specific Gravit y 1.005 (1.005-1.030) Urine Protein Neg (Negative) Urine Glucose (UA) Norm (Normal) Urine Ketones Negative (Negative) Urine Blood Neg (Negative) Urine Nitrate Negative (Negative) Urine Bilirubin Neg (Negative) Urine Urobilinogen Norm mg/dL mg/dL (Negative) Ur Leukocyte Patrica ase Negative (Negative) Salicylates < 0.3 mg/dL L mg/ dL (3-10) Urine Opiates Scre en Acetaminophen < 5.0 ug/mL L ug/ mL (10-30) Ur Barbiturates Sc reen Ur Phencyclidine S crn Ur Amphetamines Sc reen U Benzodiazepines Scrn Urine Cocaine Scre en U Marijuana (THC) Screen Ethyl Alcohol 276 mg/dL H mg/dL (0-10) SARS-CoV-2 Ag (Rap id) 07/14/21 07/15/21 07/15/21 21:38 03:05 15:02 WBC RBC Hgb Hct MCV MCH MCHC RDW Plt Count MPV Neut % (Auto) Lymph % (Auto) [place] % (Auto) Eos % (Auto) Baso % (Auto) Neut # (Auto) Lymph # (Auto) [place] # (Auto) Eos # (Auto) Baso # (Auto) Nucleated RBC % (a uto) Nucleated RBCs # Sodium Potassium Chloride Carbon Dioxide Anion Gap BUN Creatinine GFR Calculation Glucose Calculated Osmolal ity Calcium Total Bilirubin AST ALT Alkaline Phosphata se Total Protein Albumin Globulin Urine Color Urine Appearance Urine pH Ur Specific Gravit y Urine Protein Urine Glucose (UA) Urine Ketones Urine Blood Urine Nitrate Urine Bilirubin Urine Urobilinogen Ur Leukocyte Patrica ase Salicylates Urine Opiates Scre en Negative ng/mL ng /mL (Negative) Acetaminophen Ur Barbiturates Sc reen Negative ng/mL ng /mL (Negative) Ur Phencyclidine S crn Negative ng/mL ng /mL (Negative) Ur Amphetamines Sc reen Negative ng/mL ng /mL (Negative) U Benzodiazepines Scrn Negative ng/mL ng /mL (Negative) Urine Cocaine Scre en Negative ng/mL ng /mL (Negative) U Marijuana (THC) Screen Negative ng/mL ng /mL (Negative) Ethyl Alcohol 137 mg/dL H mg/dL (0-10) SARS-CoV-2 Ag (Rap id) Negative (Negative) Discharge Plan Discharge Patient Disposition: Admitted As Inpatient Admit Provider: Bo Laureano Clinical Impression: Suicidal ideation Condition: Stable Sign Out Sign Out Data: Patient Sign Out occurred on 07/15/21 at 07:36. Patient's care was discussed, and care was transferred from to Jeromy Rodriguez MD. Coding Level of Care Code ED Rn Care Manager for Chg Fwd Exam Comprehensive Documented by User: Jeromy Rodriguez MD 07/17/21 19:24 HPI - Psych General: Chief Complaint: ER Hold Stated Complaint: SI Time Seen by Provider: 07/14/21 21:40 PFS ED PFSH: Medical History (Updated 07/16/21 @ 11:46 by Claudia Parada) Psychiatric care Social History Smoking and tobacco status: current every day smoker Course Vital Signs: Vital signs: Vital Signs Temperature 98.2 F 07/17/21 14:00 Pulse Rate 72 07/17/21 14:00 Respiratory Rate 16 07/17/21 14:00 Blood Pressure 121/81 07/17/21 14:00 Pulse Oximetry 94 07/17/21 14:00 MDM - Psych MDM Narrative: Medical decision making narrative: Patient care handoff recieved pending admission. No acute changes during my shift. Jeromy Rodriguez MD Emergency Medicine Lab Data: Labs: Lab Results 07/14/21 07/14/21 07/14/21 21:30 21:30 21:38 WBC 5.9 10^3/uL 10^3/ uL (4.0-10.0) RBC 4.63 10^6/uL 10^6 /uL (4.1-5.3) Hgb 16.6 g/dL g/dL (11.7-16.6) Hct 47.2 % % (42.0-52.0) MCV 101.9 fl H fl (80-94) MCH 35.9 pg H pg (28.0-34.0) MCHC 35.2 g/dL g/dL (30.0-36.0) RDW 11.9 % L % (12.1-15.1) Plt Count 208 10^3/cmm 10^3 /cmm (130-400) MPV 8.7 fL fL (7.4-10.4) Neut % (Auto) 40.7 % % Lymph % (Auto) 44.7 % % [place] % (Auto) 11.3 % % Eos % (Auto) 1.7 % % Baso % (Auto) 1.4 % % Neut # (Auto) 2.41 10^3/uL 10^3 /uL (1.8-7.7) Lymph # (Auto) 2.6 10^3/uL 10^3/ uL (0.8-4.8) [place] # (Auto) 0.7 10^3/uL 10^3/ uL (0.2-0.9) Eos # (Auto) 0.1 10^3/uL 10^3/ uL (0.0-0.8) Baso # (Auto) 0.1 10^3/uL 10^3/ uL (0.0-0.1) Nucleated RBC % (a uto) 0 % % Nucleated RBCs # 0.0 /100WBC /100W BC Sodium 139 mmol/L mmol/L (136-145) Potassium 4.0 mmol/L mmol/L (3.5-5.1) Chloride 100 mmol/L mmol/L (98-107) Carbon Dioxide 26 mmol/L mmol/L (22-29) Anion Gap 17.0 (5-19) BUN 7 mg/dL mg/dL (6-20) Creatinine 0.8 mg/dL mg/dL (0.7-1.2) GFR Calculation 102.3 mL/min mL/m in (90-130) Glucose 155 mg/dL H mg/dL (65-115) Calculated Osmolal ity 289 mOsm/kg mOsm/ kg (285-295) Calcium 9.2 mg/dL mg/dL (8.5-10.5) Total Bilirubin 0.4 mg/dL mg/dL (0.15-1.2) AST 53 U/L H U/L (0-40) ALT 39 U/L U/L (0-41) Alkaline Phosphata se 94 IU/L IU/L (40-130) Total Protein 6.7 g/dL g/dL (6.6-8.7) Albumin 4.3 g/dL g/dL (3.5-5.2) Globulin 2.4 g/dL g/dL (1.3-4.6) Urine Color Straw (Yellow) Urine Appearance Clear (CLEAR) Urine pH 5 (5-7) Ur Specific Gravit y 1.005 (1.005-1.030) Urine Protein Neg (Negative) Urine Glucose (UA) Norm (Normal) Urine Ketones Negative (Negative) Urine Blood Neg (Negative) Urine Nitrate Negative (Negative) Urine Bilirubin Neg (Negative) Urine Urobilinogen Norm mg/dL mg/dL (Negative) Ur Leukocyte Patrica ase Negative (Negative) Salicylates < 0.3 mg/dL L mg/ dL (3-10) Urine Opiates Scre en Acetaminophen < 5.0 ug/mL L ug/ mL (10-30) Ur Barbiturates Sc reen Ur Phencyclidine S crn Ur Amphetamines Sc reen U Benzodiazepines Scrn Urine Cocaine Scre en U Marijuana (THC) Screen Ethyl Alcohol 276 mg/dL H mg/dL (0-10) SARS-CoV-2 Ag (Rap id) 07/14/21 07/15/21 07/15/21 21:38 03:05 15:02 WBC RBC Hgb Hct MCV MCH MCHC RDW Plt Count MPV Neut % (Auto) Lymph % (Auto) [place] % (Auto) Eos % (Auto) Baso % (Auto) Neut # (Auto) Lymph # (Auto) [place] # (Auto) Eos # (Auto) Baso # (Auto) Nucleated RBC % (a uto) Nucleated RBCs # Sodium Potassium Chloride Carbon Dioxide Anion Gap BUN Creatinine GFR Calculation Glucose Calculated Osmolal ity Calcium Total Bilirubin AST ALT Alkaline Phosphata se Total Protein Albumin Globulin Urine Color Urine Appearance Urine pH Ur Specific Gravit y Urine Protein Urine Glucose (UA) Urine Ketones Urine Blood Urine Nitrate Urine Bilirubin Urine Urobilinogen Ur Leukocyte Patrica ase Salicylates Urine Opiates Scre en Negative ng/mL ng /mL (Negative) Acetaminophen Ur Barbiturates Sc reen Negative ng/mL ng /mL (Negative) Ur Phencyclidine S crn Negative ng/mL ng /mL (Negative) Ur Amphetamines Sc reen Negative ng/mL ng /mL (Negative) U Benzodiazepines Scrn Negative ng/mL ng /mL (Negative) Urine Cocaine Scre en Negative ng/mL ng /mL (Negative) U Marijuana (THC) Screen Negative ng/mL ng /mL (Negative) Ethyl Alcohol 137 mg/dL H mg/dL (0-10) SARS-CoV-2 Ag (Rap id) Negative (Negative) Discharge Plan Discharge Patient Disposition: Admitted As Inpatient Admit Provider: Bo Laureano Clinical Impression: Suicidal ideation Condition: Stable Sign Out Sign Out Data: Patient Sign Out occurred on 10/10/21 at 07:36. Patient's care was discussed, and care was transferred from to Jeromy Rodriguez MD. Coding Level of Care Code ED Rn Care Manager for Chg Fwd Exam Comprehensive
[2021-07-14 21:56] LABS: Basophils # 0.1 10^3/uL (0.0-0.1); Basophils % 1.4 %; Eosinophils # 0.1 10^3/uL (0.0-0.8); Eosinophils % 1.7 %; Hematocrit 47.2 % (42.0-52.0); Hemoglobin 16.6 g/dL (11.7-16.6); Lymphocytes # 2.6 10^3/uL (0.8-4.8); Lymphocytes % 44.7 %; Mean Corpuscular HGB Conc 35.2 g/dL (30.0-36.0); Mean Corpuscular Hemoglobin 35.9 pg (28.0-34.0); Mean Corpuscular Volume 101.9 fl (80-94); Mean Platelet Volume 8.7 fL (7.4-10.4); Monocytes # 0.7 10^3/uL (0.2-0.9); Monocytes % 11.3 %; Neutrophils # 2.41 10^3/uL (1.8-7.7); Neutrophils % 40.7 %; Nucleated Red Blood Cells % 0 %; Platelet Count 208 10^3/cmm (130-400); Red Blood Count 4.63 10^6/uL (4.1-5.3); Red Cell Distribution Width 11.9 % (12.1-15.1); White Blood Count 5.9 10^3/uL (4.0-10.0)
[2021-07-14 22:08] LABS: Alanine Aminotransferase 39 U/L (0-41); Albumin Level 4.3 g/dL (3.5-5.2); Alcohol Level 276 mg/dL (0-10); Alkaline Phosphatase 94 IU/L (40-130); Aspartate Amino Transferase 53 U/L (0-40); Blood Urea Nitrogen 7 mg/dL (6-20); Calcium 9.2 mg/dL (8.5-10.5); Carbon Dioxide 26 mmol/L (22-29); Chloride 100 mmol/L (98-107); Globulin 2.4 g/dL (1.3-4.6); Glomerular Filtration Rate 102.3 mL/min (90-130); Glucose 155 mg/dL (65-115); Osmolality Calculated 289 mOsm/kg (285-295); Sodium 139 mmol/L (136-145); Total Bilirubin 0.4 mg/dL (0.15-1.2); Total Protein 6.7 g/dL (6.6-8.7)
[2021-07-14 22:10] LABS: Add Urine Microscopic? NO; Charge for UA Resulting for Rev
[2021-07-14 22:13] LABS: Acetaminophen < 5.0 ug/mL (10-30); Salicylate < 0.3 mg/dL (3-10)
[2021-07-14 22:14] LABS: Bilirubin Urine Neg (Negative); Blood Urine Neg (Negative); Glucose Urine UA Norm (Normal); Ketones Urine Negative (Negative); Leukocyte Esterase Urine Negative (Negative); Nitrate Urine Negative (Negative); Protein Urine Neg (Negative); Specific Gravity, Urine 1.005 (1.005-1.030); Urine Appearance Clear (CLEAR); Urine Color Straw (Yellow); Urobilinogen Urine Norm (Negative); pH Urine 5 (5-7)
[2021-07-14 22:21] LABS: Amphetamines Screen Urine Negative (Negative); Barbiturates Screen Urine Negative (Negative); Benzodiazepines Screen Urine Negative (Negative); Cocaine Screen Urine Negative (Negative); Opiate Screen Urine Negative (Negative); PCP Screen Urine Negative (Negative); THC Screen Urine Negative (Negative)
[2021-07-14] MEDS: OLANZapine 10 mg ODT PO (23:49)
[2021-07-14] MEDS: thiamine 100 mg Tablet PO (23:49)
[2021-07-15 03:43] LABS: Alcohol Level 137 mg/dL (0-10)
[2021-07-15 06:24] VITALS: BP 96/51; PULSE 47; RESP 14; TEMP 36.4; O2SAT 97
[2021-07-15] MEDS: naltrexone hcl 50 mg Tablet PO (10:29)
[2021-07-15] MEDS: buPROPion XL (24 HR) 150 mg Tablet PO (10:29)
[2021-07-15 15:32] LABS: SARS Covid-2 Antigen Negative (Negative)
[2021-07-15] MEDS: CLONazepam 1 mg Tablet 0.5 MG PO ×2 (16:11→20:44)
[2021-07-15] MEDS: gabapentin 300 mg Capsule 600 MG PO ×2 (16:12→20:44)
[2021-07-15 16:22] VITALS: BP 138/68; PULSE 55; O2SAT 99
[2021-07-15 22:29] VITALS: BP 129/80; PULSE 52; RESP 16; TEMP 36.6; O2SAT 97
--- NOTE | 2021-07-15 22:53 | PC.NURSE ---
REPORT GIVEN TO EDEN RN NPU
[2021-07-15 23:15] VITALS: BP 128/78; PULSE 58; RESP 18; O2SAT 97
[2021-07-15 23:28] VITALS: BP 124/83; PULSE 74; RESP 20; TEMP 36.4; O2SAT 96
--- NOTE | 2021-07-15 23:49 | PC.NURSE ---
Addendum entered by Kalyn Eastman RN 07/16/21 03:37: CIWA IS 0 ON REASSESSMENT AT 0035. PT SLEPT SOUNDLY UNTIL 0335. PT WOKE UP WANTING A SNACK, WATCHED TV FOR A FEW MOMENTS AND RETURNED TO BED. Original Note: CIWA 15 on admission/pain level in his lower back is rated 7 and right leg is a 6. medication nurse notified of pt condition.
[2021-07-15] MEDS: trazodone 50 mg Tablet PO (23:51)
[2021-07-15] MEDS: LORazepam 2 mg Tablet PO (23:51)
[2021-07-15] MEDS: acetaminophen 325 mg Tablet 650 MG PO (23:51)
--- NOTE | 2021-07-15 23:57 | PC.NURSE ---
pt requested sleep med. Trazodone 50 mg po given for sleep. RN scored pt 15 on CIWA scale, ativan 2mg po given per CIWA protocol.
[2021-07-16] MEDS: nicotine 2 mg Gum BUCCAL (00:21)
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
--- NOTE | 2021-07-16 02:36 | PC.NURSE ---
pt resting quietly with both eyes closed
[2021-07-16 06:00] VITALS: RESP 18
[2021-07-16] MEDS: nicotine 21 mg Patch 1 PATCH TRANSDERMA (08:22)
[2021-07-16] MEDS: buPROPion XL (24 HR) 150 mg Tablet PO (08:23)
[2021-07-16] MEDS: folic acid 1 mg Tablet PO (08:23)
[2021-07-16] MEDS: naltrexone hcl 50 mg Tablet PO (08:23)
[2021-07-16] MEDS: atenolol 50 mg Tablet 100 MG PO (08:23)
[2021-07-16] MEDS: thiamine 100 mg Tablet PO (08:23)
[2021-07-16] MEDS: CLONazepam 1 mg Tablet 0.5 MG PO ×3 (08:23→22:03)
[2021-07-16] MEDS: gabapentin 300 mg Capsule 600 MG PO ×3 (08:23→22:04)
[2021-07-16] MEDS: multivitamin therapeutic Tablet 1 TAB PO (08:23)
[2021-07-16] MEDS: acetaminophen 325 mg Tablet 650 MG PO ×3 (08:36→16:25)
[2021-07-16 14:00] VITALS: BP 114/76; PULSE 65; RESP 18; TEMP 36.6; O2SAT 97
--- NOTE | 2021-07-16 15:25 | NPU.GN ---
[facility] Unit Group Topic:Depression BINGO General Mood of Group: General mood was talkative. Seemed like most everyone in the group was talkative. This group was exceptionable large. They seemed to all want to speak at the same time. This patient came to group on time and dressed appropriate with good hygiene. This patient did participate and did ask questions.
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
--- NOTE | 2021-07-16 17:07 | PC.RESP ---
SMOKING CESSATION INFORMATION SENT TO PATIENT.
[2021-07-16 21:10] VITALS: BP 140/78; PULSE 63; RESP 18; TEMP 37; O2SAT 98
[2021-07-16] MEDS: trazodone 50 mg Tablet PO (22:04)
--- NOTE | 2021-07-16 22:15 | PC.NURSE ---
Addendum entered by Kalyn Eastman RN 07/17/21 05:38: PT DECLINED ATIVAN, LATER REQUESTED ANXIETY MEDICATION, RECEIVED VISTERIL 50MG PO, RESPONDED WELL. Original Note: Tal 15, med nurse notified, Ativan protocol requested
[2021-07-16] MEDS: hyDROXYzine 25 mg Capsule 50 MG PO (23:34)
[2021-07-17 06:00] VITALS: BP 131/88; PULSE 67; RESP 18; TEMP 36.5; O2SAT 99
[2021-07-17] MEDS: atenolol 50 mg Tablet 100 MG PO (08:05)
[2021-07-17] MEDS: nicotine 21 mg Patch 1 PATCH TRANSDERMA (08:05)
[2021-07-17] MEDS: folic acid 1 mg Tablet PO (08:06)
[2021-07-17] MEDS: buPROPion XL (24 HR) 150 mg Tablet PO (08:06)
[2021-07-17] MEDS: gabapentin 300 mg Capsule 600 MG PO ×3 (08:06→21:48)
[2021-07-17] MEDS: thiamine 100 mg Tablet PO (08:06)
[2021-07-17] MEDS: CLONazepam 0.5 mg Tablet PO ×3 (08:06→21:49)
[2021-07-17] MEDS: naltrexone hcl 50 mg Tablet PO (08:06)
[2021-07-17] MEDS: multivitamin therapeutic Tablet 1 TAB PO (08:06)
[2021-07-17] MEDS: acetaminophen 325 mg Tablet 650 MG PO (10:01)
--- NOTE | 2021-07-17 11:03 | NPU.GN ---
[facility] Unit Group Topic:Sail Boat/ Mechanisms General Mood of Group: Steven did attend and participate in group today. He ate two oranges and was also talkative in group.
[2021-07-17 14:00] VITALS: BP 121/81; PULSE 72; RESP 16; TEMP 36.8; O2SAT 94
--- NOTE | 2021-07-17 18:39 | P.PN_ITS ---
Subjective NPU Subjective: Interval history: Patient presents today reporting that he feels stupid for relapsing again. We discussed his medications and the fact that changes have been made just about a month ago. And that this likely has more to do with his recovery planning and relapse prevention than the current effectiveness of the medication. We discussed the possibility of considering an increase in the Wellbutrin but at this point we agreed to stay the course. Reports eating and sleeping okay but still feeling pretty down himself with passive wish. Mental Status Exam MSE Comments: This is a slender, white male, with hospital scrubs on with adequate grooming, and eye contact. No abnormal movements except for psychomotor retardation. Cooperative with exam in mild distress. Speech was decreased rate and volume. Mood described as depressed; affect congruent. Thought process, o rganized. Thought content: patient denied any suicidal or homicidal ideation, there were no delusions reported or noted, patient denied any auditory or visual hallucinations. Attention, concentration, and memory appear intact but were not formally tested. He is alert and oriented times three. Insight and judgment are limited. Impulse control is impaired. Vitals/I&O/Wt Last Vital Signs Temp 98.3 F 07/17/21 22:00 Pulse 83 07/17/21 22:00 Resp 17 07/17/21 22:00 BP 109/72 07/17/21 22:00 Pulse Ox 98 07/17/21 22:00 Data NPU : 07/14/21 21:30 07/14/21 21:30 A&P Additional A&P Information (1) Suicidal ideation: (2) Auditory hallucination: (3) PTSD (post-traumatic stress disorder): (4) Alcohol dependence: This is a 50-year-old, white male, with long history of addiction, but a recent history of trauma and post-traumatic stress disorder, who endorses not being able to maintain his sobrietyafter his recent discharge. RECOMMENDATION AND PLAN: 1. Continue current medication. 2. Encourage individual, group, and milieu therapy. 3. Continue q-15 minute checks for safety. 4. Encourage sober living treatment after discharge at the highest level of care to which he is willing to commit Involuntary Hold Information 96 Hour Hold: 96 Hour Involuntary Admission: No Attestations NPU Medical Necessity Statement*: Inpatient hospitalization is medically necessary and the clinically appropriate intervention at this time. We will monitor medications and make changes as indicated. Likely length of stay 2-4 days. Coding Level of Care Code Acute Circulating Nurse for Ab Suarez
[2021-07-17 22:00] VITALS: BP 109/72; PULSE 83; RESP 17; TEMP 36.8; O2SAT 98
[2021-07-17] MEDS: LORazepam 2 mg Tablet PO (22:01)
--- NOTE | 2021-07-17 22:03 | PC.NURSE ---
ciwa 12-ativan 2mg po given for alcohol withdrawl.
[2021-07-17] MEDS: hyDROXYzine 25 mg Capsule 50 MG PO (23:16)
[2021-07-18] MEDS: LORazepam 2 mg Tablet PO (00:44)
[2021-07-18 06:00] VITALS: BP 107/70; PULSE 65; RESP 15; TEMP 36.8; O2SAT 97
[2021-07-18] MEDS: nicotine 21 mg Patch 1 PATCH TRANSDERMA (09:49)
[2021-07-18] MEDS: gabapentin 300 mg Capsule 600 MG PO ×3 (09:50→22:06)
[2021-07-18] MEDS: folic acid 1 mg Tablet PO (09:50)
[2021-07-18] MEDS: multivitamin therapeutic Tablet 1 TAB PO (09:50)
[2021-07-18] MEDS: CLONazepam 0.5 mg Tablet PO ×3 (09:50→22:05)
[2021-07-18] MEDS: thiamine 100 mg Tablet PO (09:50)
[2021-07-18] MEDS: buPROPion XL (24 HR) 150 mg Tablet PO (09:50)
[2021-07-18] MEDS: naltrexone hcl 50 mg Tablet PO (09:50)
[2021-07-18] MEDS: acetaminophen 325 mg Tablet 650 MG PO (09:55)
--- NOTE | 2021-07-18 13:37 | NPU.GN ---
[facility] Group Topic:Anxiety Bingo General Mood of Group: Steven did not attend group today.
[2021-07-18 14:00] VITALS: BP 103/72; PULSE 95; RESP 20; TEMP 36.2; O2SAT 97
--- NOTE | 2021-07-18 16:58 | P.PN_ITS ---
Subjective NPU Subjective: Interval history: Patient is today reporting that he is starting to think about possibilities. Still seems ambivalent about actually recovery oriented services and is more focused on things will get his life back on track like getting back to work and things of that nature. 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 Reporting that he might even be helpful for him to know that he sobriety as needed for his income. Mental Status Exam MSE Comments: This is a slender, white male, with hospital scrubs on with adequate grooming, and eye contact. No abnormal movements except for mild psychomotor retardation. Cooperative with exam in no acute distress. Speech was decreased rate and volume. Mood described as a little better; affect congruent. Thought process, organized. Thought content: patient denied any suicidal or homicidal ideation, there were no delusions reported or noted, patient denied any auditory or visual hallucinations. Attention, concentration, and memory appear intact but were not formally tested. He is alert and oriented times three. Insight and judgment are limited, but improving impulse control is limited. Vitals/I&O/Wt Last Vital Signs Temp 98.2 F 07/18/21 20:01 Pulse 84 07/18/21 20:01 Resp 16 07/18/21 20:01 BP 112/75 07/18/21 20:01 Pulse Ox 98 07/18/21 20:01 Data NPU : 07/14/21 21:30 07/14/21 21:30 A&P Additional A&P Information (1) Suicidal ideation: (2) Auditory hallucination: (3) PTSD (post-traumatic stress disorder): (4) Alcohol dependence: This is a 50-year-old, white male, with long history of addiction, but a recent history of trauma and post-traumatic stress disorder, who endorses not being able to maintain his sobrietyafter his recent discharge. RECOMMENDATION AND PLAN: 1. Continue current medication. 2. Encourage individual, group, and milieu therapy. 3. Continue q-15 minute checks for safety. 4. Encourage sober living treatment after discharge at the highest level of care to which he is willing to commit Involuntary Hold Information 96 Hour Hold: 96 Hour Involuntary Admission: No Attestations NPU Medical Necessity Statement*: Inpatient hospitalization is medically necessary and the clinically appropriate intervention at this time. We will monitor medications and make changes as indicated. Likely length of stay 1-3 days. Coding Level of Care Code Acute Corporate Wellness Coordinator for Ab Suarez
[2021-07-18 20:01] VITALS: BP 112/75; PULSE 84; RESP 16; TEMP 36.8; O2SAT 98
[2021-07-18] MEDS: hyDROXYzine 25 mg Capsule 50 MG PO (22:06)
[2021-07-18] MEDS: trazodone 50 mg Tablet PO (22:06)
[2021-07-19] MEDS: OLANZapine 5 mg ODT PO (02:31)
--- NOTE | 2021-07-19 03:09 | PC.NURSE ---
Trazodone 50mg, vistaril 50mg and zyprexa 5mg given for sleep, anxiety and agitation / anxiety medication was effective.
--- NOTE | 2021-07-19 04:25 | PC.NURSE ---
Patient given Hydroxyzine 50mg PO for anxiety/sleep and Trazodone 50mg for sleep. Patient also given Ativan 2mg for anxiety.
[2021-07-19 06:00] VITALS: BP 112/75; PULSE 73; RESP 17; TEMP 37.2; O2SAT 94
[2021-07-19] MEDS: naltrexone hcl 50 mg Tablet PO (08:36)
[2021-07-19] MEDS: buPROPion XL (24 HR) 150 mg Tablet PO (08:36)
[2021-07-19] MEDS: CLONazepam 0.5 mg Tablet PO ×3 (08:36→21:18)
[2021-07-19] MEDS: gabapentin 300 mg Capsule 600 MG PO ×3 (08:37→21:19)
[2021-07-19] MEDS: multivitamin therapeutic Tablet 1 TAB PO (08:37)
[2021-07-19] MEDS: folic acid 1 mg Tablet PO (08:37)
[2021-07-19] MEDS: thiamine 100 mg Tablet PO (08:37)
[2021-07-19] MEDS: atenolol 50 mg Tablet 100 MG PO (08:37)
[2021-07-19] MEDS: nicotine 21 mg Patch 1 PATCH TRANSDERMA (08:39)
--- NOTE | 2021-07-19 12:12 | NPU.GN ---
[facility] Unit Group Topic:Anger General Mood of Group: Steven did stop in group a few times. Steven did not participate much. Steven was walking and pacing most of the time and quiet.
[2021-07-19 13:35] VITALS: BP 112/76; PULSE 76; RESP 18; TEMP 36.2; O2SAT 96
[2021-07-19] MEDS: acetaminophen 325 mg Tablet 650 MG PO (14:21)
--- NOTE | 2021-07-19 18:45 | PM.NPN ---
Subjective NPU Subjective: Interval history: Patient presents today seeming to be a little more focused employment and economics and having patient stayed in his recovery per se. He does report however that he is fully knowledgeable that he needs to get his sobriety under control and that he wants to do ongoing treatment he is unsure whether he is able to be inpatient or whether that would actually improve the situation or he would be better with outpatient and employment. We agreed we would work with the treatment team to see what options are available with a likely discharge plan for tomorrow. Mental Status Exam MSE Comments: This is a slender, white male, with hospital scrubs on with adequate grooming, and eye contact. No abnormal movements except for mild psychomotor retardation. Cooperative with exam in no acute distress. Speech was more normal rate and volume. Mood described as getting better; affect congruent. Thought process, organized. Thought content: patient denied any suicidal or homicidal ideation, there were no delusions reported or noted, patient denied any auditory or visual hallucinations. Attention, concentration, and memory appear intact but were not formally tested. He is alert and oriented times three. Insight and judgment are limited, but improving impulse control is limited. Vitals/I&O/Wt Last Vital Signs Temp 98.7 F 07/19/21 22:00 Pulse 76 07/19/21 22:00 Resp 18 07/19/21 22:00 BP 112/76 07/19/21 22:00 Pulse Ox 96 07/19/21 22:00 Data NPU : 07/14/21 21:30 07/14/21 21:30 Involuntary Hold Information 96 Hour Hold: 96 Hour Involuntary Admission: No Attestations NPU Medical Necessity Statement*: Inpatient hospitalization is medically necessary and the clinically appropriate intervention at this time. We will monitor medications and make changes as indicated. Likely length of stay 1-2 days. Coding Level of Care Code Acute Aircraft Structural Repairer for Ab Suarez
[2021-07-19] MEDS: trazodone 50 mg Tablet PO (21:18)
[2021-07-19] MEDS: hyDROXYzine 25 mg Capsule 50 MG PO (21:18)
[2021-07-19 22:00] VITALS: BP 112/76; PULSE 76; RESP 18; TEMP 37.1; O2SAT 96
[2021-07-20] MEDS: thiamine 100 mg Tablet PO (10:02)
[2021-07-20] MEDS: gabapentin 300 mg Capsule 600 MG PO (10:02)
[2021-07-20] MEDS: CLONazepam 0.5 mg Tablet PO (10:02)
[2021-07-20] MEDS: buPROPion XL (24 HR) 150 mg Tablet PO (10:02)
[2021-07-20] MEDS: atenolol 50 mg Tablet 100 MG PO (10:02)
[2021-07-20] MEDS: naltrexone hcl 50 mg Tablet PO (10:02)
[2021-07-20] MEDS: multivitamin therapeutic Tablet 1 TAB PO (10:03)
[2021-07-20] MEDS: folic acid 1 mg Tablet PO (10:03)
[2021-07-20] MEDS: nicotine 21 mg Patch 1 PATCH TRANSDERMA (10:04)
[2021-07-20 13:39] VITALS: BP 127/79; PULSE 85; RESP 16; TEMP 36.4; O2SAT 97
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
[2021-07-20 14:32] VITALS: BP 127/79; PULSE 85; RESP 16; TEMP 36.4; O2SAT 97
== END 2021-07-20 14:42 | disposition home or self-care (01) | DRG 882 ==
LOC: ER 07-15 07:36 → NP 07-15 23:00
PROVIDERS: Emergency Medicine; Admitting Provider Psychiatry & Neurology Psychiatry; Emergency Provider Emergency Medicine; Visit Provider Psychiatry & Neurology Psychiatry
DX: F43.10 Post-traumatic stress disorder, unspecified (principal); R45.851 Suicidal ideations; R44.0 Auditory hallucinations; F19.20 Other psychoactive substance dependence, uncomplicated; R45.850 Homicidal ideations; F17.210 Nicotine dependence, cigarettes, uncomplicated; Z59.89 Other problems related to housing and economic circumstances; Z81.4 Family history of other substance abuse and dependence; Z62.819 Personal history of unspecified abuse in childhood; Y90.8 Blood alcohol level of 240 mg/100 ml or more
CPT/HCPCS: 80053; 80306; 80307; 81003; 85025; 87426; 97150; 97165; 99285

== ENCOUNTER 2021-10-08 20:35 | Inpatient (IN) | payer MEDICAID, SELFPAY ==
[2021-10-08 20:44] VITALS: BP 148/85; PULSE 95; RESP 18; O2SAT 97; BMI 23.6
--- NOTE | 2021-10-08 20:57 | W.ED.GENADLT ---
HPI - General Adult General: Chief complaint: Psychiatric Symptoms Stated complaint: DEPRESSION Time Seen by Provider: 10/08/21 20:55 History of Present Illness: HPI narrative: HPI: [50]yo patient w/ hx of depression BIBA for SI. On arrival, the patient is AAOx3 and cooperative with my evaluation. No focal complaints of chest pain, shortness of breath, palpitations, N/V, focal GI/ complaints. No complaints of hallucinations. Onset: acute Duration: ongoing Location: home Severity: severe Review of Systems Narrative: Constitutional: No fever, no chills. HEENT: No vision changes CV: No chest pain, no palpitations PULM: No productive cough, no dyspnea. GI: No abdominal pain, no N/V/D. : No dysuria MSKEL: No muscle pain SKIN: No new rashes, no lesions. NEURO: No headache, no focal weakness. HEME: No visible bruises PSYCH: +depression, SI PFSH ED PFSH: Medical History (Updated 07/21/21 @ 00:00 by ) Psychiatric care Social History Smoking and tobacco status: current every day smoker Physical Exam Narrative: EXAM NARRATIVE: Head: Atraumatic Eyes: PERRL, conjunctiva without injection, eyes tracking ENT: Mucous membrane moist NECK: Supple without lymphadenopathy LUNGS: LCTAB CV: RRR ABDOMEN: Soft, nontender EXTREMITY: Normal ROM SKIN: No rash or erythema NEURO: Awake and alert. No focal weakness PSYCH: Cooperative mood and affect. Course Vital Signs: Vital signs: Vital Signs Pulse Rate 95 10/08/21 20:44 Respiratory Rate 18 10/08/21 20:44 Blood Pressure 148/85 10/08/21 20:44 Pulse Oximetry 97 10/08/21 20:44 MDM - General Adult MDM Narrative: Medical decision making narrative: [50]yo patient w/ hx of depression presenting for SI. HDS, exam within normal limit Thoughts are linear and organized, and the patient has no AH/VH, or HI. Clinically the patient displays no overt toxidrome; they are well appearing, with low suspicion for toxic ingestion given history and exam. Symptoms unlikely 2/2 anemia, hypothyroidism, infection, or ICH. Workup: CBC, CMP, Lipase, salicylate/tylenol, urine drug screen [8:58pm] On reassessment, labs and workup wnl. Patient is hemodynamically stable with no acute medical complaints. Case discussed with psychiatric provider Dr. Laureano at [facility] [place] psych inpatient with recommendation for admission Disposition: Psych Discharge Plan Discharge Prescriptions: No Action ascorbic acid (vitamin C) [Vitamin C] 500 mg Tablet 500 mg PO DAILY 30 Days Qty: 30 RF: 0 multivitamin Tablet 1 tab PO DAILY RF: 0 Vitamin B-1 (mononitrate) 100 mg Tablet 100 mg PO DAILY 30 Days Qty: 30 RF: 1 gabapentin 600 mg tablet 600 mg PO TID 30 Days Qty: 90 RF: 1 atenolol 100 mg tablet 100 mg PO DAILY 30 Days Qty: 30 RF: 1 naltrexone 50 mg Tablet 50 mg PO DAILY 30 Days Qty: 30 RF: 1 clonazepam 0.5 mg tablet 0.5 mg PO TID 30 Days Qty: 90 RF: 1 bupropion HCl 150 mg Tablet Extended Release 24 Hr 150 mg PO DAILY 30 Days Qty: 30 RF: 1 Coding Level of Care Code ED Fundraising Coordinator for Ab Suarez
[2021-10-08 21:10] LABS: Basophils # 0.1 10^3/uL (0.0-0.1); Basophils % 0.6 %; Eosinophils # 0.3 10^3/uL (0.0-0.8); Eosinophils % 4.1 %; Hemoglobin 17.2 g/dL (11.7-16.6); Lymphocytes % 36.1 %; Mean Corpuscular HGB Conc 35.1 g/dL (30.0-36.0); Mean Corpuscular Hemoglobin 34.8 pg (28.0-34.0); Mean Corpuscular Volume 99.2 fl (80-94); Mean Platelet Volume 8.5 fL (7.4-10.4); Monocytes # 0.8 10^3/uL (0.2-0.9); Monocytes % 9.9 %; Neutrophils # 4.03 10^3/uL (1.8-7.7); Neutrophils % 49.1 %; Nucleated Red Blood Cells % 0 %; Platelet Count 234 10^3/cmm (130-400); Red Blood Count 4.94 10^6/uL (4.1-5.3); Red Cell Distribution Width 11.9 % (12.1-15.1); White Blood Count 8.2 10^3/uL (4.0-10.0)
[2021-10-08 21:22] VITALS: BP 124/84; PULSE 68; RESP 15; TEMP 37.2; O2SAT 97
[2021-10-08 21:25] LABS: Alcohol Level 268 mg/dL (0-10); Anion Gap 15.2 (5-19); Blood Urea Nitrogen 8 mg/dL (6-20); Calcium 8.6 mg/dL (8.5-10.5); Carbon Dioxide 28 mmol/L (22-29); Chloride 103 mmol/L (98-107); Glomerular Filtration Rate 102.3 mL/min (90-130); Glucose 117 mg/dL (65-115); Osmolality Calculated 295 mOsm/kg (285-295); Potassium 3.2 mmol/L (3.5-5.1); Sodium 143 mmol/L (136-145)
[2021-10-08 21:26] LABS: Acetaminophen < 5.0 ug/mL (10-30); Salicylate < 0.3 mg/dL (3-10)
[2021-10-08 22:00] VITALS: RESP 15
--- NOTE | 2021-10-08 22:25 | PC.NURSE ---
Patient is tearful, resistive to assessment and cooperative at times. Patient voices that he doesn't want to be here. States he wants to see God, has a pistol at home and will cut himself. Patient offered nourishment and then directed to room 250-1.Unable to complete skin assessment at this time due to patient not being directive and easily agitated. Security presence at present time.
[2021-10-09 06:00] VITALS: BP 130/71; PULSE 84; RESP 19; TEMP 36.6; O2SAT 95
[2021-10-09 07:45] LABS: Alanine Aminotransferase 19 U/L (0-41); Albumin Level 3.8 g/dL (3.5-5.2); Alkaline Phosphatase 79 IU/L (40-130); Anion Gap 19.5 (5-19); Aspartate Amino Transferase 27 U/L (0-40); Blood Urea Nitrogen 10 mg/dL (6-20); Calcium 8.3 mg/dL (8.5-10.5); Carbon Dioxide 21 mmol/L (22-29); Chloride 105 mmol/L (98-107); Globulin 1.9 g/dL (1.3-4.6); Glomerular Filtration Rate 142.6 mL/min (90-130); Glucose 120 mg/dL (65-115); Osmolality Calculated 294 mOsm/kg (285-295); Potassium 3.5 mmol/L (3.5-5.1); Sodium 142 mmol/L (136-145); Total Bilirubin 0.2 mg/dL (0.15-1.2); Total Protein 5.7 g/dL (6.6-8.7)
[2021-10-09] MEDS: atenolol 50 mg Tablet 100 MG PO (09:19)
[2021-10-09] MEDS: CLONazepam 0.5 mg Tablet PO ×3 (09:19→20:59)
[2021-10-09] MEDS: multivitamin therapeutic Tablet 1 TAB PO (09:19)
[2021-10-09] MEDS: naltrexone hcl 50 mg Tablet PO (09:19)
[2021-10-09] MEDS: gabapentin 300 mg Capsule 600 MG PO ×3 (09:19→20:59)
[2021-10-09] MEDS: thiamine 100 mg Tablet PO (09:20)
[2021-10-09] MEDS: folic acid 1 mg Tablet PO (09:20)
[2021-10-09] MEDS: ascorbic acid 500 mg Tablet PO (09:20)
[2021-10-09] MEDS: buPROPion XL (24 HR) 150 mg Tablet PO (09:20)
[2021-10-09] MEDS: nicotine 21 mg Patch 1 PATCH TRANSDERMA (09:57)
[2021-10-09] MEDS: acetaminophen 325 mg Tablet 650 MG PO ×2 (13:03→20:59)
[2021-10-09 14:00] VITALS: BP 120/56; PULSE 51; RESP 16; TEMP 36.6; O2SAT 98
[2021-10-09 14:05] LABS: Amphetamines Screen Urine Negative (Negative); Barbiturates Screen Urine Negative (Negative); Benzodiazepines Screen Urine Negative (Negative); Cocaine Screen Urine Negative (Negative); Opiate Screen Urine Negative (Negative); PCP Screen Urine Negative (Negative); THC Screen Urine Negative (Negative)
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
[2021-10-09 22:00] VITALS: BP 107/67; PULSE 72; RESP 18; TEMP 36.3; O2SAT 97
[2021-10-10 06:00] VITALS: BP 120/71; PULSE 68; RESP 20; TEMP 36.6; O2SAT 97
[2021-10-10] MEDS: nicotine 21 mg Patch 1 PATCH TRANSDERMA (08:32)
[2021-10-10] MEDS: atenolol 50 mg Tablet 100 MG PO (08:32)
[2021-10-10] MEDS: ascorbic acid 500 mg Tablet PO (08:32)
[2021-10-10] MEDS: thiamine 100 mg Tablet PO (08:32)
[2021-10-10] MEDS: multivitamin therapeutic Tablet 1 TAB PO (08:33)
[2021-10-10] MEDS: buPROPion XL (24 HR) 150 mg Tablet PO (08:33)
[2021-10-10] MEDS: gabapentin 300 mg Capsule 600 MG PO ×3 (08:33→20:40)
[2021-10-10] MEDS: naltrexone hcl 50 mg Tablet PO (08:33)
[2021-10-10] MEDS: folic acid 1 mg Tablet PO (08:33)
[2021-10-10] MEDS: CLONazepam 0.5 mg Tablet PO ×2 (08:33→16:22)
[2021-10-10 14:00] VITALS: BP 129/78; PULSE 45; RESP 16; TEMP 36.5; O2SAT 99
[2021-10-10] MEDS: acetaminophen 325 mg Tablet 650 MG PO (15:42)
--- NOTE | 2021-10-10 16:57 | W.PM.NPUPNS ---
Subjective NPU Subjective: Interval history: Patient presents today reporting that he is feeling really optimistic about moving forward. He had a chance to meet with the [facility] program and have significant forward for his stability. He reports he is doing well with his medication and is being reestablished. We discussed the likelihood of discharge the next 48 hours to begin the processes being assisted by the [facility]. Mental Status Exam MSE Comments: This is a slender, white male, with hospital scrubs on with adequate grooming, and eye contact. No abnormal movements except for mild psychomotor retardation. Cooperative with exam in no acute distress. Speech was slightly decreased rate and volume. Mood described as a little better; affect congruent. Thought process, organized. Thought content: patient denied any suicidal or homicidal ideation, there were no delusions reported or noted, patient denied any auditory or visual hallucinations. Attention, concentration, and memory appear intact but were not formally tested. He is alert and oriented times three. Insight and judgment are fair. Impulse control is noted. Vitals/I&O/Wt Last Vital Signs Temp 97.7 F 10/10/21 14:00 Pulse 45 L 10/10/21 14:00 Resp 16 10/10/21 14:00 BP 129/78 10/10/21 14:00 Pulse Ox 99 10/10/21 14:00 Data NPU : 10/08/21 21:05 10/09/21 07:00 A&P Additional A&P Information (1) PTSD (post-traumatic stress disorder): (2) Alcohol dependence: (3) Suicidal ideation: Additional A&P Information This is a 50-year-old, white male, with long history of addiction, but a recent history of trauma and post-traumatic stress disorder, who endorses recent relapse and psychosocial challenges. RECOMMENDATION AND PLAN: 1. Continue current medication. 2. Encourage individual, group, and milieu therapy. 3. Continue q-15 minute checks for safety. 4. Encourage sober living treatment after discharge at the highest level of care to which he is willing to commit Involuntary Hold Information 96 Hour Hold: 96 Hour Involuntary Admission: No Attestations NPU Medical Necessity Statement*: Inpatient hospitalization is medically necessary and the clinically appropriate intervention at this time. We will monitor medications and make changes as indicated. Likely length of stay 1-3 days. Coding Level of Care Code Acute Medical Records Coordinator for [facility]
[2021-10-10 20:28] VITALS: BP 115/70; PULSE 59; RESP 16; TEMP 36.5; O2SAT 96
[2021-10-10] MEDS: trazodone 50 mg Tablet PO (20:40)
[2021-10-10] MEDS: hyDROXYzine 25 mg Capsule 50 MG PO (20:40)
--- NOTE | 2021-10-10 21:35 | PC.NURSE ---
Trazodone 50mg po, Vistaril 50mg po given fro sleep and anxiety; with good results.
[2021-10-11 05:32] VITALS: BP 115/70; PULSE 59; RESP 16; TEMP 36.5; O2SAT 96
--- NOTE | 2021-10-11 06:34 | PC.NURSE ---
Patient has been to the nurses desk x 3 asking about his clonazepam. The medication is not due until 9 am. This nurse offerred a prn for anxiety and he refused.
[2021-10-11] MEDS: thiamine 100 mg Tablet PO (09:35)
[2021-10-11] MEDS: naltrexone hcl 50 mg Tablet PO (09:35)
[2021-10-11] MEDS: buPROPion XL (24 HR) 150 mg Tablet PO (09:35)
[2021-10-11] MEDS: gabapentin 300 mg Capsule 600 MG PO ×2 (09:35→15:02)
[2021-10-11] MEDS: ascorbic acid 500 mg Tablet PO (09:36)
[2021-10-11] MEDS: multivitamin therapeutic Tablet 1 TAB PO (09:36)
[2021-10-11] MEDS: atenolol 50 mg Tablet 100 MG PO (09:36)
[2021-10-11] MEDS: folic acid 1 mg Tablet PO (09:36)
[2021-10-11] MEDS: CLONazepam 0.5 mg Tablet PO (09:44)
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
[2021-10-11 14:58] VITALS: BP 115/70; PULSE 59; RESP 16; TEMP 36.5; O2SAT 96
== END 2021-10-11 15:18 | disposition home or self-care (01) | DRG 881 ==
LOC: ER 21:05 → NP 21:07
PROVIDERS: Admitting Provider Psychiatry & Neurology Psychiatry; Emergency Provider Emergency Medicine; Visit Provider Psychiatry & Neurology Psychiatry
DX: F32.A Depression, unspecified (principal); R45.851 Suicidal ideations; F10.20 Alcohol dependence, uncomplicated; F17.200 Nicotine dependence, unspecified, uncomplicated; F43.10 Post-traumatic stress disorder, unspecified
CPT/HCPCS: 36415; 80048; 80053; 80306; 80307; 85025; 97150; 97165; 99285; G0378

== ENCOUNTER 2021-11-17 15:56 | Emergency (ER) | payer MEDICAID, SELFPAY ==
[2021-11-17 16:01] VITALS: BP 108/66; PULSE 81; RESP 16; TEMP 36.4; O2SAT 96; BMI 24.3
--- NOTE | 2021-11-17 16:25 | W.ED.BACK ---
HPI - Back Pain/Injury General: Chief Complaint: Back Pain/Injury Stated Complaint: Lower back on R side in alot of pain Time Seen by Provider: 11/17/21 16:21 Source: patient Mode of arrival: ambulatory Limitations: no limitations History of Present Illness: Patient is a 50-year-old male who presents to ED today with a complaint of acute on chronic right-sided sciatica pain. Patient states he has had this pain for approximately 10 years now. Patient states he is followed up with pain management previously and has had several conservative therapies performed to his lower back all of which without relief. He states he has followed up with a neurosurgeon in [facility] who was recommended surgery. Patient states his pain flared up after walking 1 day. Patient states he walks approximately a mile a day. 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 Patient states pain begins in the right side of his back and radiates down into his right buttock down the posterior aspect of his thigh and then down into his leg. He has not noticed any color or temperature changes to the extremity. Pertinent past history: prior back pain Onset (ago): unknown (acute on chronic) Timing: constant Radiation: right leg below the knee Exacerbating factors: movement Relieving factors: none Associated symptoms: Deny abdominal pain, chills, difficulty walking, dysuria, fever(s) or hematuria Work related injury: No Review of Systems Const: Denies: fever(s), chills or body aches Card: Denies: chest pain Resp: Denies: dyspnea GI: Denies: abdominal pain : Denies: flank pain, dysuria or hematuria Musc: Reports: back pain; Denies: neck pain, extremity swelling, joint pain, joint swelling, joint redness, joint warmth or limited range of motion Neuro: Denies: numbness in extremities, weakness in extremities, sensory changes or difficulty walking [facility] ED PFSH: Medical History (Updated 11/17/21 @ 16:41 by BRANDAN Pitts) Generalized anxiety disorder Psychiatric care Social History Smoking and tobacco status: current every day smoker Physical Exam Const: COMMON NORMALS: no acute distress, average body habitus, patient oriented x3, no limitations, healthy appearing, alert and well nourished GENERAL APPEARANCE: cooperative ORIENTATION/CONSCIOUSNESS: Yes awake, Yes oriented to person, Yes oriented to place and Yes oriented to time : COMMON NORMALS: Yes no CVA tenderness BLADDER/KIDNEY EXAM: Yes no CVA tenderness Back/Pelvis: COMMON NORMALS: no CVA tenderness THORACIC SPINE/UPPER BACK: Yes normal to inspection, Yes thoracic ROM normal, No thoracic spinal tenderness, No paraspinal muscle tenderness and No paraspinal muscle spasm LUMBAR SPINE/LOWER BACK: No lumbar spinal tenderness and Yes paraspinal muscle tenderness Lumbar paraspinal muscle tenderness: right PELVIS: Yes sciatic notch tenderness on the right SACROILIAC JOINTS: Yes SI joint(s) abnormal (R) Extremity: COMMON NORMALS: normal to inspection, full ROM, capillary refill normal, no joint enlargement, no clubbing, cyanosis or edema, no calf tenderness and no pedal edema GENERAL: Yes normal exam except as noted Neuro: COMMON NORMALS: patient oriented x3, moves all extremities, no focal motor deficits, no sensory deficits noted and gait normal SENSORIUM/ORIENTATION: Yes alert, Yes oriented to person, Yes oriented to place and Yes oriented to time MOTOR EXAM: 5/5 motor strength present throughout Skin: COMMON NORMALS: no rashes or lesions noted GENERAL SKIN EXAM: no rashes or lesions noted Course Vital Signs: Vital signs: Vital Signs Temperature 97.6 F 11/17/21 16:01 Pulse Rate 81 11/17/21 16:01 Respiratory Rate 16 11/17/21 16:01 Blood Pressure 108/66 11/17/21 16:01 Pulse Oximetry 96 11/17/21 16:01 MDM - Back Pain/Injury Medical Decision Making Patient's history and physical exam is consistent with acute on chronic pain right sided sciatica pain. According to patient history he has tried several conservative therapies through pain management all without relief of his symptoms. He apparently has been recommended for surgery but wants to hold off on this. We will treat patient with steroids and muscle relaxers at this time. Given his chronic alcohol abuse (notably patient states he has been sober for the past month) and history of gastric ulcers we will abstain from NSAID therapy. Discharge Plan Discharge Patient Disposition: Home Clinical Impression: Sciatica of right side Condition: Stable Prescriptions: New cyclobenzaprine 10 mg tablet 10 mg PO TID Qty: 14 0RF methylprednisolone [Medrol (Rodri)] 4 mg tablets,dose pack See Rx Instructions .ROUTE .COMPLEX Qty: 21 0RF Rx Instructions: orally per package directions No Action clonazepam 0.5 mg tablet See Rx Instructions .ROUTE .COMPLEX PRN (Reason: anxiety) 30 Days Qty: 45 1RF Rx Instructions: take 1-2 tabs po daily prn anxiety bupropion HCl 150 mg tablet extended release 24 hr 150 mg PO DAILY 30 Days Qty: 30 3RF gabapentin 600 mg tablet 600 mg PO TID 30 Days Qty: 90 3RF naltrexone 50 mg tablet 50 mg PO DAILY 30 Days Qty: 30 3RF buspirone 15 mg tablet 15 mg PO BID Qty: 60 3RF mirtazapine 15 mg tablet 15 mg PO .qhs 30 Days Qty: 30 3RF multivitamin Tablet 1 tab PO DAILY 30 Days Qty: 30 1RF Rx Instructions: NEVER FILLED, OTC? atenolol 100 mg tablet 100 mg PO DAILY 30 Days Qty: 30 1RF Vitamin C 500 mg Tablet 500 mg PO DAILY 30 Days Qty: 30 1RF Rx Instructions: NEVER FILLED, POSS OTC? Vitamin B-1 (mononitrate) 100 mg Tablet 100 mg PO DAILY 30 Days Qty: 30 1RF Discharge Orders: Discharge ED (Routine); Ordered 11/17/21 Ordered By: Tavia Nuñez Patient Instructions: Sciatica (ED), Lumbar Radiculopathy (ED), Lower Back Exercises (ED) Coding Level of Care Code ED Rock Climbing Instructor for Ab Fwbud Exam Detailed
[2021-11-17] MEDS: orphenadrine 30 mg/mL Inj 2 mL 60 MG IM (17:03)
[2021-11-17] MEDS: dexamethasone 10 mg/mL INJ 8 MG IM (17:04)
== END 2021-11-17 17:22 | disposition home or self-care (01) ==
PROVIDERS: Emergency Provider Physician Assistant
DX: M54.31 Sciatica, right side (principal); F17.210 Nicotine dependence, cigarettes, uncomplicated
CPT/HCPCS: 96372; 99283; J1100; J2360

== ENCOUNTER 2021-12-26 13:32 | Emergency (ER) | payer MEDICAID, SELFPAY ==
[2021-12-26 13:45] VITALS: BP 129/80; PULSE 81; RESP 21; TEMP 36.3; O2SAT 98; BMI 24.3
--- NOTE | 2021-12-26 13:48 | ED_ITS ---
HPI - SOB/Dyspnea General: Chief Complaint: Shortness of Breath/Dyspnea Stated Complaint: Neg COVID, SOB Time Seen by Provider: 12/26/21 13:47 History of Present Illness: HPI Narrative: Mr. Ahuja is a 50-year-old gentleman with significant past medical history of long-term cigarette use who presents to the emergency department due to cough and shortness of breath. Symptom onset was approximately 2 weeks ago. He endorses initially thinking it was just related to after exposure however symptoms have continued. He has productive cough and shortness of breath. He has had subjective chills and generalized malaise however no other focal symptoms. He took a home Covid test which was reportedly negative. Intensity symptoms moderate. Course has been worsening. No other specific changes in health, exacerbating, or alleviating factors identified. Pertinent past history: COPD Onset (ago): week(s) Severity: moderate Review of Systems General: Reports: 10 or more systems reviewed and unremarkable except in HPI and below PFSH ED PFSH: Medical History Generalized anxiety disorder Psychiatric care Social History Smoking and tobacco status: current every day smoker Physical Exam Const: COMMON NORMALS: alert GENERAL APPEARANCE: cooperative and well developed HENMT: COMMON NORMALS: normocephalic and atraumatic HEAD & SCALP: normocephalic and atraumatic Eye: COMMON NORMALS: conjunctivae normal CONJUNCTIVA: Yes conjunctivae normal SCLERA: sclerae normal Neck/C-Spine: COMMON NORMALS: supple GENERAL: Yes trachea midline Resp: EFFORT & INSPECTION: Yes able to speak in complete sentences and Yes tachypneic AUSCULTATION: wheezes expiratory wheezes and diminished lung sounds Cardio: COMMON NORMALS: regular rate and regular rhythm RATE: regular rate RHYTHM: regular rhythm GI: COMMON NORMALS: Soft to palpation PALPATION: Yes Soft to palpation and No Tenderness to palpation present (GI) Extremity: GENERAL: Yes normal exam except as noted and No edema Neuro: COMMON NORMALS: moves all extremities SENSORIUM/ORIENTATION: Yes alert and No Orientation impaired Psych: COMMON NORMALS: mental status grossly normal and Normal thought process present THOUGHT PROCESS: Normal thought process present Course ED course: - Patient was seen and evaluated by me at bedside - Patient placed on cardiac monitors, IV access obtained - Initial evaluation notable for exam as above, mild tachypnea and diminished lung sounds with expiratory wheezes - Labs and xrays personally interpreted by me -RT treatment ordered - Labs notable for entero/rhino virus - Imaging notable for no lobar consolidation or pneumothorax - Upon serial reexamination after treatment the patient was improved - Based on patient history, evaluation, and testing as interpreted the most likely cause of the patient's condition is exacerbation of COPD and due to the acquired pneumonia - The results of ED evaluation were discussed with the patient including prescriptions and/or symptomatic cares (if applicable) including appropriate and responsible use, followup plan, and return precautions. The patient verbalized understanding and felt safe for discharge. - Patient discharged in satisfactory condition. Note: Click bubbles or prepopulated wallace in note writing are used for assistance with data collection and billing and are inherently more limited than narrative and other text portions of this note. Please use narrative for additional clinical history and defer to narrative/free test for any case of contradictory information. If information appears in only free text or click bubble it should be considered present or absent as reported. Please contact note property underwriter for clarifications of clinical information or contradictory information. MDM is a brief summary, contradictory or erroneous seeming information should be clarified and full note should be reviewed. Vital Signs: Vital signs: Vital Signs Temperature 97.8 F 12/26/21 14:34 Pulse Rate 70 12/26/21 15:46 Respiratory Rate 20 H 12/26/21 15:46 Blood Pressure 138/66 12/26/21 15:46 Pulse Oximetry 95 12/26/21 15:46 MDM - SOB/Dyspnea Medical Decision Making 51-year-old gentleman with longstanding history of tobacco use presenting with 2 weeks of respiratory symptoms. Patient is not tachycardic and not requiring oxygen. He is nontoxic in appearance. Given duration of symptoms we will plan to treat for COPD exacerbation and pneumonia. Satisfactory for outpatient management. Medical Records I reviewed the patient's medical records. Lab Data I reviewed the patient's lab results. Labs/Radiology: Radiology Impressions Chest X-Ray 12/26/21 14:12 IMPRESSION: No acute findings. Laboratory Results Coronavirus 229E (PCR) Not detected (NOT DETECT) 12/26/21 14:25 Human Metapneumovir PCR Not detected (NOT DETECT) 12/26/21 18:44 Entero/Rhino (PCR) Detected (NOT DETECT) A 12/26/21 18:44 SARS-CoV-2 (PCR) Not detected (NOT DETECT) 12/26/21 14:25 Discharge Plan Discharge Patient Disposition: Home Clinical Impression: Community acquired pneumonia, COPD (chronic obstructive pulmonary disease) Condition: Stable Prescriptions: New albuterol sulfate 90 mcg/actuation HFA aerosol inhaler 2 inh inhalation Q8H PRN (Reason: shortness of breath or wheezing) Qty: 8.5 0RF doxycycline hyclate 100 mg capsule 100 mg PO Q12H 7 Days Qty: 14 0RF No Action clonazepam 0.5 mg tablet See Rx Instructions .ROUTE .COMPLEX PRN (Reason: anxiety) 30 Days Qty: 45 1RF Rx Instructions: take 1-2 tabs po daily prn anxiety bupropion HCl 150 mg tablet extended release 24 hr 150 mg PO DAILY 30 Days Qty: 30 3RF gabapentin 600 mg tablet 600 mg PO TID 30 Days Qty: 90 3RF naltrexone 50 mg tablet 50 mg PO DAILY 30 Days Qty: 30 3RF buspirone 15 mg tablet 15 mg PO BID Qty: 60 3RF mirtazapine 15 mg tablet 15 mg PO .qhs 30 Days Qty: 30 3RF cyclobenzaprine 10 mg tablet 10 mg PO TID Qty: 14 0RF Medrol (Rodri) 4 mg tablets,dose pack See Rx Instructions .ROUTE .COMPLEX Qty: 21 0RF Rx Instructions: orally per package directions multivitamin Tablet 1 tab PO DAILY 30 Days Qty: 30 1RF Rx Instructions: NEVER FILLED, OTC? atenolol 100 mg tablet 100 mg PO DAILY 30 Days Qty: 30 1RF Vitamin C 500 mg Tablet 500 mg PO DAILY 30 Days Qty: 30 1RF Rx Instructions: NEVER FILLED, POSS OTC? Vitamin B-1 (mononitrate) 100 mg Tablet 100 mg PO DAILY 30 Days Qty: 30 1RF Discharge Orders: Discharge ED (Routine); Ordered 12/26/21 Ordered By: Jeromy Rodriguze Referrals: Familia Khan MD [Primary Care Provider] - Discharge Diet: Usual diet Discharge Activity: Resume usual activity Patient Instructions: COPD (Chronic Obstructive Pulmonary Disease) (ED), Community Acquired Pneumonia (ED) Activity Restrictions/Additional Instructions: Thank you for visiting the emergency department. You were seen and evaluated for cough and shortness of breath. The exact cause of your symptoms is unclear however based on symptoms described you likely have pneumonia which is causing flare of underlying lung disease. You will be given a prescription for antibiotics, steroids, and an inhaler. Please follow-up with your primary care provider. Please establish with a prima ry care provider if you do not currently have one. Please return to the emergency department for worsening symptoms or anything else that you are concerned about and feel needs emergency department e valuation. Stand Alone Forms: Work/School Release Coding Level of Care Code ED Inside Plant Supervisor for Ab Suarez
[2021-12-26 14:10] VITALS: BMI 24.3
--- NOTE | 2021-12-26 14:12 | XRR_ITS ---
PROCEDURE INFORMATION: Exam: XR Chest Exam date and time: 12/26/2021 1:39 PM Age: 50 years old Clinical indication: Cough and fever; Additional info: Cough, fevers TECHNIQUE: Imaging protocol: XR of the chest. Views: 1 view. COMPARISON: CR Chest 2 views* [id number] 07/12/2018 6:47 PM FINDINGS: Lungs: Unremarkable. No consolidation. Pleural spaces: Unremarkable. No pleural effusion. No pneumothorax. Heart/Mediastinum: Unremarkable. No cardiomegaly. Bones/joints: Unremarkable. XR/XR chest 1V portable [id number] IMPRESSION: No acute findings.
[2021-12-26 14:15] VITALS: PULSE 67; RESP 16; O2SAT 96
[2021-12-26] MEDS: ipratropium-albuterol 3 mL Neb INHALATION (14:21)
[2021-12-26 14:24] VITALS: PULSE 71
[2021-12-26 14:34] VITALS: BP 117/76; PULSE 76; RESP 20; TEMP 36.6; O2SAT 91
[2021-12-26 14:38] VITALS: O2SAT 93
[2021-12-26 15:46] VITALS: BP 138/66; PULSE 70; RESP 20; O2SAT 95
[2021-12-26 17:10] LABS: Adenovirus Not Detected (NOT DETECT); Chlamydia Pneumoniae Not Detected (NOT DETECT); Coronavirus 229E,HKU1,NL63,OC4 Not Detected (NOT DETECT); Human Metapneumovirus Not Detected (NOT DETECT); Human Rhinovirus/Enterovirus Detected (NOT DETECT); Influenza A Not Detected (NOT DETECT); Influenza A H1 Not Detected (NOT DETECT); Influenza A H1-2009 Not Detected (NOT DETECT); Influenza A H3 Not Detected (NOT DETECT); Influenza B Not Detected (NOT DETECT); Mycoplasma Pneumoniae Not Detected (NOT DETECT); Parainfluenza Virus Type 1 Not Detected (NOT DETECT); Parainfluenza Virus Type 2 Not Detected (NOT DETECT); Parainfluenza Virus Type 3 Not Detected (NOT DETECT); Parainfluenza Virus Type 4 Not Detected (NOT DETECT); Respiratory Syncytial Virus A Not Detected (NOT DETECT); Respiratory Syncytial Virus B Not Detected (NOT DETECT); SARS-COV-2 Not Detected (NOT DETECT)
[2021-12-26 18:44] LABS: Human Metapneumovirus Not Detected (NOT DETECT); Human Rhinovirus/Enterovirus Detected (NOT DETECT); Results from Genmark
== END 2021-12-26 15:55 | disposition home or self-care (01) ==
PROVIDERS: Emergency Provider Emergency Medicine; PCP Internal Medicine Cardiovascular Disease
DX: J44.0 Chronic obstructive pulmonary disease with (acute) lower respiratory infection (principal); J18.8 Other pneumonia, unspecified organism; J44.1 Chronic obstructive pulmonary disease with (acute) exacerbation; F17.210 Nicotine dependence, cigarettes, uncomplicated; Z20.822 Contact with and (suspected) exposure to COVID-19
CPT/HCPCS: 71045; 87635; 87801; 94640; 99284

== ENCOUNTER 2022-01-22 22:55 | Emergency (ER) | payer MEDICAID, SELFPAY ==
--- NOTE | 2022-01-22 22:57 | XRR_ITS ---
PROCEDURE INFORMATION: Exam: XR Chest Exam date and time: 01/22/2022 10:59 PM Age: 51 years old Clinical indication: Cough and fever; Patient HX: C/O cough with fever. TECHNIQUE: Imaging protocol: XR of the chest. Views: 2 views. COMPARISON: CR XR chest 1V portable [id number] 12/26/2021 1:39 PM FINDINGS: Lungs: Unremarkable. No consolidation. Pleural spaces: Unremarkable. No pleural effusion. No pneumothorax. Heart/Mediastinum: Unremarkable. No cardiomegaly. Bones/joints: Unremarkable. XR/XR chest 2V* [id number] IMPRESSION: No acute findings.
[2022-01-22 23:01] VITALS: BP 151/88; PULSE 82; RESP 20; TEMP 36.8; O2SAT 98; BMI 20.9
--- NOTE | 2022-01-22 23:20 | W.ED.GENADLT ---
HPI - General Adult General: Chief complaint: General Medical Stated complaint: cough,fever Time Seen by Provider: 01/22/22 23:09 History of Present Illness: 51-year-old male patient comes in today with complaints of cough and chest congestion. Patient reports symptoms started yesterday but worse today. Patient does have a history of COPD. Patient was able to get his inhaler filled today and reported some improvement after use of inhaler. Patient also complains of some reflux after eating at the [employer] restaurant and requests a GI cocktail. Associated symptoms: Deny chest pain Review of Systems General: Reports: 10 or more systems reviewed and unremarkable except in HPI and below Card: Denies: chest pain Resp: Reports: non-productive cough GI: Reports: bloating and belching Musc: Denies: neck pain or back pain PFSH ED PFSH: Medical History Generalized anxiety disorder Psychiatric care Social History Smoking and tobacco status: current every day smoker Physical Exam Const: COMMON NORMALS: alert HENMT: THROAT: posterior oropharynx normal Resp: COMMON NORMALS: normal respiratory effort AUSCULTATION: diminished lung sounds Cardio: COMMON NORMALS: regular rate and regular rhythm RATE: regular rate RHYTHM: regular rhythm GI: COMMON NORMALS: Soft to palpation PALPATION: Yes Soft to palpation Extremity: COMMON NORMALS: normal to inspection Neuro: SENSORIUM/ORIENTATION: Yes alert Skin: COMMON NORMALS: no rashes or lesions noted GENERAL SKIN EXAM: no rashes or lesions noted Course Vital Signs: Vital signs: Vital Signs Temperature 98.2 F 01/22/22 23:01 Pulse Rate 82 01/22/22 23:01 Respiratory Rate 20 H 01/22/22 23:01 Blood Pressure 151/88 01/22/22 23:01 Pulse Oximetry 98 01/22/22 23:01 [facility] - General Adult Medical Decision Making 51-year-old male patient comes in today with complaints of dyspepsia and cough. On exam patient appears nontoxic. Lungs are clear to auscultation except for some deep diminished breath sounds in the bases. Skin is warm and dry. Abdomen soft with some mild epigastric tenderness. No edema is in the extremities. Vital signs are normal. Differential diagnosis includes but not limited to hiatal hernia, GERD, COPD, acute bronchitis. Chest x-ray was unremarkable. We will go ahead and treat patient with 5 days of doxycycline to cover for exacerbation of COPD, patient will continue with his albuterol inhaler. Patient was given 1 dose of GI cocktail for his dyspepsia. Discharge Plan Discharge Patient Disposition: Home Clinical Impression: COPD (chronic obstructive pulmonary disease) Qualifiers: COPD type: unspecified COPD Qualified Code(s): J44.9 - Chronic obstructive pulmonary disease, unspecified GERD (gastroesophageal reflux disease) Qualifiers: Esophagitis presence: without esophagitis Qualified Code(s): K21.9 - Gastro-esophageal reflux disease without esophagitis Condition: Stable Prescriptions: New doxycycline monohydrate 100 mg capsule 100 mg PO BID 5 Days Qty: 10 0RF No Action clonazepam 0.5 mg tablet See Rx Instructions .ROUTE .COMPLEX PRN (Reason: anxiety) 30 Days Qty: 45 1RF Rx Instructions: take 1-2 tabs po daily prn anxiety bupropion HCl 150 mg tablet extended release 24 hr 150 mg PO DAILY 30 Days Qty: 30 3RF gabapentin 600 mg tablet 600 mg PO TID 30 Days Qty: 90 3RF naltrexone 50 mg tablet 50 mg PO DAILY 30 Days Qty: 30 3RF buspirone 15 mg tablet 15 mg PO BID Qty: 60 3RF mirtazapine 15 mg tablet 15 mg PO .qhs 30 Days Qty: 30 3RF cyclobenzaprine 10 mg tablet 10 mg PO TID Qty: 14 0RF Medrol (Rodri) 4 mg tablets,dose pack See Rx Instructions .ROUTE .COMPLEX Qty: 21 0RF Rx Instructions: orally per package directions multivitamin Tablet 1 tab PO DAILY 30 Days Qty: 30 1RF Rx Instructions: NEVER FILLED, OTC? atenolol 100 mg tablet 100 mg PO DAILY 30 Days Qty: 30 1RF Vitamin C 500 mg Tablet 500 mg PO DAILY 30 Days Qty: 30 1RF Rx Instructions: NEVER FILLED, POSS OTC? Vitamin B-1 (mononitrate) 100 mg Tablet 100 mg PO DAILY 30 Days Qty: 30 1RF albuterol sulfate 90 mcg/actuation HFA aerosol inhaler 2 inh inhalation Q8H PRN (Reason: shortness of breath or wheezing) Qty: 8.5 0RF Discharge Orders: Discharge ED (Routine); Ordered 01/22/22 Ordered By: Aidan Osborne Referrals: Familia Khan MD [Primary Care Provider] - Discharge Diet: Usual diet Discharge Activity: Increase activity as tolerated Patient Instructions: Acute Bronchitis (ED), Opioid Safety Activity Restrictions/Additional Instructions: Use doxycycline twice a day for the next 5 days. Use inhaler as needed for coughing or chest congestion. Follow-up with primary care for further instructions. Return to ER for new concerns. Coding Level of Care Code ED Receiving And Processing Supervisor for Ab Suarez
[2022-01-22] MEDS: dexamethasone 10 mg/mL INJ IM (23:41)
[2022-01-22] MEDS: lidocaine 2% viscous 15 ML, aluminum-mag hydrox-simethicon 30 ML, sucralfate oral liq 1 GM PO (23:41)
[2022-01-22 23:57] VITALS: BP 132/82; PULSE 88; RESP 18; O2SAT 97
== END 2022-01-22 23:57 | disposition home or self-care (01) ==
PROVIDERS: Emergency Provider Nurse Practitioner Family; PCP Internal Medicine Cardiovascular Disease
DX: J44.9 Chronic obstructive pulmonary disease, unspecified (principal); K21.9 Gastro-esophageal reflux disease without esophagitis; F17.200 Nicotine dependence, unspecified, uncomplicated
CPT/HCPCS: 71046; 96372; 99283; J1100

== ENCOUNTER 2022-01-26 21:21 | Emergency (ER) | payer MEDICAID, SELFPAY ==
[2022-01-26 21:31] VITALS: BP 148/82; PULSE 79; RESP 18; TEMP 36.9; O2SAT 96
--- NOTE | 2022-01-26 22:00 | W.ED.DENTAL ---
HPI - Dental/Oral General: Chief complaint: Dental/Oral Stated complaint: broken tooth, swollen Time Seen by Provider: 01/26/22 21:32 History of Present Illness: Patient said he broke off tooth couple months ago. He has been packing with some c-Met. But started hurting this morning for the first time and is hurt all day long. Patient also requesting GI cocktail because says it helps her stomach at times. Denies any other problems. Associated symptoms: Denies fever(s) Review of Systems Const: Denies: fever(s), chills or body aches Eyes: Denies: eye discomfort ENMT: Reports: dental pain; Denies: throat pain Card: Denies: chest pain Resp: Denies: dyspnea GI: Reports: other (History of gastritis.); Denies: abdominal pain, nausea or vomiting Skin/Breast: Denies: rash Neuro: Denies: headache(s) Psych: Denies: depression or suicidal ideation PFS ED PFSH: Medical History Generalized anxiety disorder Psychiatric care Social History Smoking and tobacco status: current every day smoker Physical Exam Const: COMMON NORMALS: no acute distress, patient oriented x3 and alert HENMT: COMMON NORMALS: normocephalic and external ears normal HEAD & SCALP: normocephalic EXTERNAL EAR: Yes external ears normal TEETH & GINGIVA IMAGES: 1. Tooth broke does have similar in place. No abscess noted. Eye: COMMON NORMALS: EOMs intact bilaterally Neck/C-Spine: COMMON NORMALS: no JVD Resp: COMMON NORMALS: normal respiratory effort and No use of accessory muscles Cardio: COMMON NORMALS: no JVD GI: INSPECTION: Yes normal to inspection AUSCULTATION: Yes normoactive bowel sounds PALPATION: Yes Other GI palpation findings present (No epigastric tenderness) Extremity: COMMON NORMALS: normal to inspection and full ROM Neuro: COMMON NORMALS: patient oriented x3 SENSORIUM/ORIENTATION: Yes alert Psych: COMMON NORMALS: mental status grossly normal Skin: COMMON NORMALS: no rashes or lesions noted GENERAL SKIN EXAM: no rashes or lesions noted Course Vital Signs: Vital signs: Vital Signs Temperature 98.4 F 04/23/22 21:31 Pulse Rate 79 01/26/22 21:31 Respiratory Rate 18 01/26/22 21:31 Blood Pressure 148/82 01/26/22 21:31 Pulse Oximetry 96 01/26/22 21:31 MDM - Dental/Oral Medical Decision Making Dental discomfort, broken tooth. History of reflux also. Patient has tolerated Celebrex in the past difficulty. Discharge Plan Discharge Patient Disposition: Home Clinical Impression: GERD (gastroesophageal reflux disease), Dental caries Condition: Stable Prescriptions: New cephalexin 500 mg capsule 500 mg PO Q8H 7 Days Qty: 21 0RF Celebrex 100 mg capsule 100 mg PO BID Qty: 20 0RF No Action clonazepam 0.5 mg tablet See Rx Instructions .ROUTE .COMPLEX PRN (Reason: anxiety) 30 Days Qty: 45 1RF Rx Instructions: take 1-2 tabs po daily prn anxiety bupropion HCl 150 mg tablet extended release 24 hr 150 mg PO DAILY 30 Days Qty: 30 3RF gabapentin 600 mg tablet 600 mg PO TID 30 Days Qty: 90 3RF naltrexone 50 mg tablet 50 mg PO DAILY 30 Days Qty: 30 3RF buspirone 15 mg tablet 15 mg PO BID Qty: 60 3RF mirtazapine 15 mg tablet 15 mg PO .qhs 30 Days Qty: 30 3RF cyclobenzaprine 10 mg tablet 10 mg PO TID Qty: 14 0RF Medrol (Rodri) 4 mg tablets,dose pack See Rx Instructions .ROUTE .COMPLEX Qty: 21 0RF Rx Instructions: orally per package directions multivitamin Tablet 1 tab PO DAILY 30 Days Qty: 30 1RF Rx Instructions: NEVER FILLED, OTC? atenolol 100 mg tablet 100 mg PO DAILY 30 Days Qty: 30 1RF Vitamin C 500 mg Tablet 500 mg PO DAILY 30 Days Qty: 30 1RF Rx Instructions: NEVER FILLED, POSS OTC? Vitamin B-1 (mononitrate) 100 mg Tablet 100 mg PO DAILY 30 Days Qty: 30 1RF albuterol sulfate 90 mcg/actuation HFA aerosol inhaler 2 inh inhalation Q8H PRN (Reason: shortness of breath or wheezing) Qty: 8.5 0RF doxycycline monohydrate 100 mg capsule 100 mg PO BID 5 Days Qty: 10 0RF Discharge Orders: Discharge ED (Routine); Ordered 01/26/22 Ordered By: Lorenzo Juarez Referrals: Familia Khan MD [Primary Care Provider] - Discharge Diet: Usual diet Discharge Activity: Increase activity as tolerated Patient Instructions: Toothache (ED) Activity Restrictions/Additional Instructions: Follow-up with dental soon as possible. Take medication as directed. Coding Level of Care Code ED Supervisor [employer] for [employer] Suarez
[2022-01-26] MEDS: clindamycin 150 mg Capsule 300 MG PO (22:02)
[2022-01-26] MEDS: CELEcoxib 200 mg Capsule 400 MG PO (22:03)
[2022-01-26] MEDS: lidocaine 2% viscous 15 ML, aluminum-mag hydrox-simethicon 30 ML, sucralfate oral liq 1 GM PO (22:06)
== END 2022-01-26 22:10 | disposition home or self-care (01) ==
PROVIDERS: Emergency Provider Nurse Practitioner Family; PCP Internal Medicine Cardiovascular Disease
DX: K02.9 Dental caries, unspecified (principal); K21.9 Gastro-esophageal reflux disease without esophagitis
CPT/HCPCS: 99283

== ENCOUNTER 2022-01-31 13:12 | Outpatient (CLI) | payer MEDICAID, SELFPAY ==
--- NOTE | 2022-01-31 13:28 | XRR_ITS ---
PROCEDURE INFORMATION: Exam: XR Right Knee Exam date and time: 01/31/2022 1:29 PM Age: 51 years old Clinical indication: Patient HX: History--pain in right knee; Additional info: Chronic knee pain TECHNIQUE: Imaging protocol: XR Right knee. Views: 3 views. COMPARISON: No relevant prior studies available. FINDINGS: Bones/joints: Osseous structures are intact. Negative for fracture. Joint spaces are preserved. Soft tissues: Normal. XR/XR knee RT 3V* [id number] IMPRESSION: Unremarkable radiographs of the right knee.
== END 2022-01-31 13:13 | disposition home or self-care (01) ==
LOC: RAD 13:16
PROVIDERS: PCP Internal Medicine Cardiovascular Disease; Visit Provider Internal Medicine Cardiovascular Disease
DX: M25.561 Pain in right knee (principal); F41.1 Generalized anxiety disorder; F43.10 Post-traumatic stress disorder, unspecified
CPT/HCPCS: 90834; 73562

== ENCOUNTER 2022-02-07 07:12 | Outpatient (CLI) | payer MEDICAID, SELFPAY ==
--- NOTE | 2022-02-07 07:18 | MR_ITS ---
WS: [id number] MRI LUMBAR SPINE NONCONTRAST HISTORY: CHRONIC LUMBAR PAIN W/NEW ONSET RT SCIATICA COMPARISON: 12/07/2019 TECHNIQUE: Sagittal and axial multisequence imaging is submitted. Posterior lumbar alignment is normal. There is very mild disc desiccation at L4-5 without loss of height. No fracture or marrow edema. Conus terminates normally at L1-2 disc level. L1-L2: Normal. L2-L3: Mild bilateral ligamentum flavum hypertrophy and facet arthritis. No stenosis. L3-L4: Mild annular disc bulging with mild ligamentum flavum and facet arthritis. There is mild encro achment upon the ventral thecal sac. Mild narrowing of the foramina bilaterally but no high-grade abhilash nosis. There is fluid in the facet joints which has increased since the prior study. L4-L5: Mild annular disc bulging with a small central disc protrusion. Disc protrusion extends slight ly to the LEFT of midline contacting the traversing LEFT L5 nerve root. There is a LEFT hemilaminecto my defect. Mild central and bilateral subarticular recess stenosis and foraminal stenosis. Slightly g reater stenosis and contact on the LEFT L5 nerve root. L5-S1: Mild annular disc bulging. No significant disc protrusions. Mild facet arthritis. Paravertebral soft tissues are normal. MR/MR lumbar spine wo con* [id number] IMPRESSION: 1. Mild central, bilateral subarticular recess and foraminal stenosis at L4-5 with slightly greater contact on the traversing LEFT L5 nerve root. Very simila r to the prior study. Very minimal progression of central stenosis. 2. LEFT hemilaminectomy defect at L4-5. 3. New fluid in the facet joints at L3-4 from synovitis. 4. Very mild encroachment upon the ventral thecal sac at the L4-5 level with m ild foraminal narrowing.
== END 2022-02-07 07:13 | disposition home or self-care (01) ==
LOC: RAD 07:13
PROVIDERS: PCP Internal Medicine Cardiovascular Disease; Visit Provider Family Medicine
DX: M54.41 Lumbago with sciatica, right side (principal); G89.29 Other chronic pain
CPT/HCPCS: 72148

== ENCOUNTER → 2022-02-20 14:42 | Outpatient (BNVA) | payer MEDICAID, SELFPAY | PROVIDERS: PCP Internal Medicine Cardiovascular Disease; Visit Provider Counselor Mental Health | DX: F43.11 Post-traumatic stress disorder, acute (principal); F41.1 Generalized anxiety disorder; F43.10 Post-traumatic stress disorder, unspecified | CPT/HCPCS: 90837; 90834 ==

== ENCOUNTER → 2022-02-26 10:21 | Outpatient (BNVA) | payer MEDICAID, SELFPAY | PROVIDERS: PCP Internal Medicine Cardiovascular Disease; Referring Provider Family Medicine; Visit Provider Orthopaedic Surgery | DX: M48.062 Spinal stenosis, lumbar region with neurogenic claudication (principal) | CPT/HCPCS: 72100; 99204 ==

== ENCOUNTER → 2022-02-28 14:37 | Outpatient (BNVA) | payer MEDICAID, SELFPAY | PROVIDERS: PCP Internal Medicine Cardiovascular Disease; Visit Provider Counselor Mental Health | DX: F43.10 Post-traumatic stress disorder, unspecified (principal); F41.1 Generalized anxiety disorder | CPT/HCPCS: 90834 ==

== ENCOUNTER → 2022-03-11 10:05 | Outpatient (BNVA) | payer MEDICAID, SELFPAY | PROVIDERS: PCP Internal Medicine Cardiovascular Disease; Visit Provider Anesthesiology Pain Medicine | DX: G89.29 Other chronic pain (principal); M47.816 Spondylosis without myelopathy or radiculopathy, lumbar region; M51.16 Intervertebral disc disorders with radiculopathy, lumbar region; M79.604 Pain in right leg; M79.605 Pain in left leg; F17.210 Nicotine dependence, cigarettes, uncomplicated | CPT/HCPCS: 99204 ==

== ENCOUNTER → 2022-03-18 13:50 | Outpatient (BNVA) | payer MEDICAID, SELFPAY | PROVIDERS: PCP Internal Medicine Cardiovascular Disease; Visit Provider Counselor Mental Health | DX: F41.1 Generalized anxiety disorder (principal); F43.10 Post-traumatic stress disorder, unspecified | CPT/HCPCS: 90834 ==

== ENCOUNTER → 2022-03-26 14:15 | Outpatient (BNVA) | payer MEDICAID, SELFPAY | PROVIDERS: PCP Internal Medicine Cardiovascular Disease; Visit Provider Anesthesiology Pain Medicine | DX: G89.29 Other chronic pain (principal); M54.16 Radiculopathy, lumbar region; F17.210 Nicotine dependence, cigarettes, uncomplicated | CPT/HCPCS: 64483; 64484; J1100; J3490 ==

== ENCOUNTER → 2022-03-29 11:46 | Outpatient (BNVA) | payer MEDICAID, SELFPAY | PROVIDERS: PCP Internal Medicine Cardiovascular Disease; Visit Provider Counselor Mental Health | DX: F43.10 Post-traumatic stress disorder, unspecified (principal); F41.1 Generalized anxiety disorder | CPT/HCPCS: 90834 ==

== ENCOUNTER → 2022-04-17 10:22 | Outpatient (BNVA) | payer MEDICAID, OTHER, SELFPAY | PROVIDERS: PCP Internal Medicine Cardiovascular Disease; Visit Provider Anesthesiology Pain Medicine | DX: G89.29 Other chronic pain (principal); M47.816 Spondylosis without myelopathy or radiculopathy, lumbar region; M51.16 Intervertebral disc disorders with radiculopathy, lumbar region; M54.12 Radiculopathy, cervical region; M79.604 Pain in right leg; M79.605 Pain in left leg; F17.210 Nicotine dependence, cigarettes, uncomplicated | CPT/HCPCS: 99214 ==

== ENCOUNTER 2022-05-06 13:39 | Outpatient (CLI) | payer MEDICAID, SELFPAY ==
--- NOTE | 2022-05-06 13:58 | XR_ITS ---
WS: [id number] Cervical spine, 3 views, 05/06/2022. Clinical Data: M54.12 - Radiculopathy, cervical region Comparison: Cervical spine, 01/09/2007. Findings: No compression fractures are seen. The disc heights are normal. There is no prevertebral so ft tissue swelling. There is minimal osteoarthritic spurring at C4. The odontoid is unremarkable. The soft tissues of the neck and the lung apices are normal. 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
== END 2022-05-06 13:40 | disposition home or self-care (01) ==
PROVIDERS: PCP Internal Medicine Cardiovascular Disease; Visit Provider Anesthesiology Pain Medicine
DX: M54.12 Radiculopathy, cervical region (principal); M47.812 Spondylosis without myelopathy or radiculopathy, cervical region
CPT/HCPCS: 64493; 64494; 64495; 72040; J3490

== ENCOUNTER → 2022-05-20 13:44 | Outpatient (BNVA) | payer MEDICAID, SELFPAY | PROVIDERS: PCP Internal Medicine Cardiovascular Disease; Visit Provider Anesthesiology Pain Medicine | DX: F17.210 Nicotine dependence, cigarettes, uncomplicated (principal); M47.816 Spondylosis without myelopathy or radiculopathy, lumbar region; G89.29 Other chronic pain | CPT/HCPCS: 64493; 64494; 64495; J3490 ==

== ENCOUNTER → 2022-05-21 14:38 | Outpatient (BNVA) | payer OTHER, SELFPAY | PROVIDERS: PCP Internal Medicine Cardiovascular Disease; Visit Provider Psychiatry & Neurology Psychiatry | DX: F41.1 Generalized anxiety disorder (principal) | CPT/HCPCS: 80061; 83036 ==

== ENCOUNTER 2022-06-03 16:26 | Emergency (ER) | payer MEDICAID, SELFPAY ==
[2022-05-23 10:57] VITALS: BP 124/76; BMI 24.5
[2022-06-03 17:37] VITALS: BP 138/74; PULSE 61; RESP 16; TEMP 36.7; O2SAT 98; BMI 24.3
--- NOTE | 2022-06-03 17:48 | W.ED.SKABFB ---
HPI - Skin/Abscess/Foreign Bdy General: Chief complaint: Skin/Abscess/Foreign Body Stated complaint: Possible poison oak rash Time Seen by Provider: 06/03/22 17:42 History of Present Illness: 51-year-old male patient reports [place] and [place] and fell into the brush. Since then patient started having some itching and discomfort. Patient appears nontoxic. Patient appears no pain. Associated symptoms: Deny fever(s) Review of Systems General: Reports: 10 or more systems reviewed and unremarkable except in HPI and below Const: Denies: fever(s) Skin/Breast: Reports: rash and pruritus PFSH ED PFSH: Medical History Generalized anxiety disorder Psychiatric care Family History Other Arthritis Social History Smoking and tobacco status: current every day smoker cigarettes Packs smoked per day: 1 Years cigarettes smoked: 25 Quit status (tobacco): has tried quititng Second hand smoke exposure: Yes Alcohol intake: former Adopted: No Caregiver/support person: No Lives independently: No Household members: other Details: Sober living house Housing: Assisted Living Facility Marital status: Number of children: 1 Number of grandchildren: 0 Highest education level completed: High School Graduate service: Yes 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 branch: [employer] Assignments: Inside [facility] ([facility]) Known or Potential Exposure: None Current occupational status: employed Current occupation: [employer] Current occupational exposures/hazards: No Pets and animals: No History of recent travel: No Leisure activites: art and music Sexually active: No Current gender identity: Male Francine/Hindu: Jehovah'S Witness Special francine needs: No Agree to transfusion: Yes Financial difficulty paying for basics: Not Very Hard Physical Exam Const: COMMON NORMALS: alert HENMT: COMMON NORMALS: normocephalic HEAD & SCALP: normocephalic Neck/C-Spine: COMMON NORMALS: full ROM Chest: COMMONS NORMALS: normal inspection of the chest Resp: COMMON NORMALS: normal respiratory effort and clear to auscultation bilaterally AUSCULTATION: clear to auscultation bilaterally Cardio: COMMON NORMALS: regular rate and regular rhythm RATE: regular rate RHYTHM: regular rhythm Extremity: COMMON NORMALS: full ROM Neuro: SENSORIUM/ORIENTATION: Yes alert Skin: RASHES: rashes noted (Macular papular rash with occasional vesicles in linear pattern) Course Vital Signs: Vital signs: Vital Signs Temperature 98.1 F 06/03/22 17:37 Pulse Rate 61 06/03/22 17:37 Respiratory Rate 16 06/03/22 17:37 Blood Pressure 138/74 06/03/22 17:37 Pulse Oximetry 98 06/03/22 17:37 MDM - Skin/Abscess/Foreign Bdy Medicial Decision Making Patient presents with a rash secondary to falling into some brush [place]. On exam he has maculopapular rash with some clear field vesicles in linear pattern. Differential diagnosis includes contact dermatitis related to plants, abrasions, herpetiform rash. With the history patient and his complaints of itching I suspect contact dermatitis/poison jeri. Reviewed exam with patient with recommendations of treatment and a dose of triamcinolone x1. Patient reported understanding and agreed to plan. Discharge Plan Discharge Patient Disposition: Home Clinical Impression: Contact dermatitis Qualifiers: Contact dermatitis type: irritant Contact dermatitis trigger: non-food plants Qualified Code(s): L24.7 - Irritant contact dermatitis due to plants, except food Condition: Stable Prescriptions: No Action clonazepam 0.5 mg tablet See Rx Instructions .ROUTE .COMPLEX PRN (Reason: anxiety) 30 Days Qty: 45 1RF Rx Instructions: take 1-2 tabs po daily prn anxiety gabapentin 600 mg tablet 600 mg PO TID 30 Days Qty: 90 3RF lidocaine (PF) 10 mg/mL (1 %) solution 1 ml intra-articular ONCE Qty: 1 0RF lidocaine (PF) 10 mg/mL (1 %) solution 1 ml Infiltration ONCE Qty: 1 0RF ranitidine HCl 150 mg tablet PO DAILY multivitamin Tablet 1 tab PO DAILY 30 Days Qty: 30 1RF Rx Instructions: NEVER FILLED, OTC? atenolol 100 mg tablet 100 mg PO DAILY 30 Days Qty: 30 1RF Discharge Orders: Discharge ED (Routine); Ordered 06/03/22 Ordered By: Aidan Osborne Referrals: Familia Khan MD [Primary Care Provider] - Discharge Diet: Usual diet Discharge Activity: Increase activity as tolerated Patient Instructions: Barry Jeri (ED) Activity Restrictions/Additional Instructions: Use [id number] Claritin or Zyrtec 1 or 2 tabs every 12 hours as needed for itching. Use calamine lotion for further relief. Avoid using remedies or compounds at overdrive the skin as this may increase itching. You may use a steroid cream such as hydrocortisone for further comfort. Drink plenty of water with medication. Follow-up with primary care as needed. Trim nails closely and avoid scratching as this may increase the risk for infection. The rash usually takes about 14 days to clear. Return to the ER for worsening symptoms such as fever greater than 100.4, pain with the rash, or new concerns. Coding Level of Care Code ED Chiropractic Doctor for Ab Suarez
[2022-06-03] MEDS: triamcinolone 40 mg/mL SDV IM (18:21)
== END 2022-06-03 18:27 | disposition home or self-care (01) ==
PROVIDERS: Emergency Provider Nurse Practitioner Family; PCP Internal Medicine Cardiovascular Disease
DX: L24.7 Irritant contact dermatitis due to plants, except food (principal); F17.210 Nicotine dependence, cigarettes, uncomplicated
CPT/HCPCS: 96372; 99284; J3301

== ENCOUNTER 2022-06-05 16:30 | Emergency (ER) | payer MEDICAID, SELFPAY ==
[2022-05-23 10:57] VITALS: BP 124/76; BMI 24.5
[2022-06-05 17:06] VITALS: BP 129/64; PULSE 63; RESP 14; TEMP 36.5; O2SAT 100; BMI 24.7
--- NOTE | 2022-06-05 17:16 | ED_ITS ---
HPI - Skin/Abscess/Foreign Bdy General: Chief complaint: Skin/Abscess/Foreign Body Stated complaint: Rash Time Seen by Provider: 06/05/22 17:14 History of Present Illness: 51-year-old male patient comes in today for complaints of poison jeri. Patient reports that he has had persistent rash of discomfort over the last 2 days since being seen on Friday. Patient appears nontoxic. Patient denies any fever. Patient appears in no pain. Associated symptoms: Deny fever(s) Review of Systems Const: Denies: fever(s) Card: Denies: chest pain Resp: Denies: dyspnea Skin/Breast: Reports: rash PFSH ED PFSH: Medical History Generalized anxiety disorder Psychiatric care Family History Other Arthritis Social History Smoking and tobacco status: current every day smoker cigarettes Packs smoked per day: 1 Years cigarettes smoked: 25 Quit status (tobacco): has tried quititng Second hand smoke exposure: Yes Alcohol intake: former Adopted: No Caregiver/support person: No Lives independently: No Household members: other Details: Sober living house Housing: Assisted Living Facility Marital status: Number of children: 1 Number of grandchildren: 0 Highest education level completed: High School Graduate service: Yes 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 branch: [employer] Assignments: Inside [facility] ([facility]) Known or Potential Exposure: None Current occupational status: employed Current occupation: [employer] Current occupational exposures/hazards: No Pets and animals: No History of recent travel: No Leisure activites: art and music Sexually active: No Current gender identity: Male Francine/Baptism: Yazidi Special francine needs: No Agree to transfusion: Yes Financial difficulty paying for basics: Not Very Hard Physical Exam Const: COMMON NORMALS: alert HENMT: COMMON NORMALS: normocephalic HEAD & SCALP: normocephalic Neck/C-Spine: COMMON NORMALS: full ROM Chest: COMMONS NORMALS: normal inspection of the chest Resp: COMMON NORMALS: normal respiratory effort and clear to auscultation bilaterally AUSCULTATION: clear to auscultation bilaterally Cardio: COMMON NORMALS: regular rate RATE: regular rate GI: COMMON NORMALS: non-tender Neuro: SENSORIUM/ORIENTATION: Yes alert Skin: COMMON NORMALS: turgor normal GENERAL SKIN EXAM: turgor normal Course Vital Signs: Vital signs: Vital Signs Temperature 97.7 F 06/05/22 17:06 Pulse Rate 63 06/05/22 17:06 Respiratory Rate 14 06/05/22 17:06 Blood Pressure 129/64 06/05/22 17:06 Pulse Oximetry 100 06/05/22 17:06 Oxygen Delivery Me thod 06/05/22 17:06 MDM - Skin/Abscess/Foreign Bdy Medicial Decision Making 51-year-old male patient comes in today with complaints of worsening rash. On exam patient has linear vesicular rash with itching. Patient appears nontoxic. Vital signs are normal. Rash appears a little bit more worse today than it did on Friday. Differential diagnosis includes poison jeri dermatitis, abrasions, malingering. Patient has poison jeri I had instructed the patient on Friday that usually takes about 14 days for the rash to clear. I recommended [id number] Benadryl, calamine lotion, and hydrocortisone cream. Patient states that he has no money to get medications and just feels miserable. We will write patient's prescriptions and have him follow-up with one of our pharmacies to see if they can charge to this ER bill his prescriptions. Patient was redosed with another 40 mg of Kenalog. And prescriptions were written and given to patient. Discharge Plan Discharge Patient Disposition: Home Clinical Impression: Poison jeri dermatitis Condition: Stable Prescriptions: New prednisone 20 mg tablet 20 mg PO BID 7 Days Qty: 14 0RF triamcinolone acetonide 0.1 % cream 1 applic topical BID Qty: 80 0RF cetirizine 10 mg tablet 10 mg PO BID Qty: 30 0RF Calagesic 1-8 % lotion 1 applic topical QID PRN (Reason: itching) Qty: 177 0RF No Action clonazepam 0.5 mg tablet See Rx Instructions .ROUTE .COMPLEX PRN (Reason: anxiety) 30 Days Qty: 45 1RF Rx Instructions: take 1-2 tabs po daily prn anxiety gabapentin 600 mg tablet 600 mg PO TID 30 Days Qty: 90 3RF lidocaine (PF) 10 mg/mL (1 %) solution 1 ml intra-articular ONCE Qty: 1 0RF lidocaine (PF) 10 mg/mL (1 %) solution 1 ml Infiltration ONCE Qty: 1 0RF ranitidine HCl 150 mg tablet PO DAILY multivitamin Tablet 1 tab PO DAILY 30 Days Qty: 30 1RF Rx Instructions: NEVER FILLED, OTC? atenolol 100 mg tablet 100 mg PO DAILY 30 Days Qty: 30 1RF Discharge Orders: Discharge ED (Routine); Ordered 06/05/22 Ordered By: Aidan Osborne Referrals: Familia Khan MD [Primary Care Provider] - Discharge Diet: Usual diet Discharge Activity: Increase activity as tolerated Patient Instructions: Poison Jeri (ED), Cold Compress or Soak (ED) Activity Restrictions/Additional Instructions: If you go to one of the [facility] pharmacies within the next 24 hours you should be able to charge medications to this ER bill for pickup. Drink lots of water with medication. Follow-up with primary care for further instruction. The poison jeri takes at least 2 weeks to resolve. Return to ER for fever greater than 100.4, shortness of breath, or new concerns. Coding Level of Care Code ED Research Instrumentation Technician for Ab Fwd Exam Comprehensive
[2022-06-05] MEDS: triamcinolone 40 mg/mL SDV IM (17:40)
[2022-06-05] MEDS: triamcinolone 0.1% cream 15 gm 1 APPLIC TOPICAL (17:41)
== END 2022-06-05 17:48 | disposition home or self-care (01) ==
PROVIDERS: Emergency Provider Nurse Practitioner Family; PCP Internal Medicine Cardiovascular Disease
DX: L23.7 Allergic contact dermatitis due to plants, except food (principal); F17.210 Nicotine dependence, cigarettes, uncomplicated
CPT/HCPCS: 96372; 99284; J3301

== ENCOUNTER 2022-08-14 02:08 | Emergency (ER) | payer MEDICAID, SELFPAY ==
[2022-05-23 10:57] VITALS: BP 124/76; BMI 24.5
[2022-08-14 02:09] VITALS: BP 134/90; PULSE 79; RESP 18; TEMP 36.6; O2SAT 97; BMI 24.3
--- NOTE | 2022-08-14 02:30 | XRR_ITS ---
PROCEDURE INFORMATION: Exam: XR Left Knee Exam date and time: 08/14/2022 3:36 AM Age: 51 years old Clinical indication: Injury or trauma; Blunt trauma; Left; Patient HX: Fall at home this a. M. C/O knee pain. Notable swelling to anterior aspect of knee distal to patella. ; Additional info: Fall with knee pain TECHNIQUE: Imaging protocol: Radiologic exam of the Left knee. Views: 3 views. COMPARISON: No relevant prior studies available. FINDINGS: Bones/joints: The medial joint space is well maintained. The lateral joint space is well maintained. No fracture identified. Flabella noted. Soft tissues: No knee joint effusion is present. XR/XR knee LT 3V* [id number] IMPRESSION: No evidence of acute fracture or dislocation.
--- NOTE | 2022-08-14 02:56 | ED_ITS ---
HPI - Extremity Problem General: Chief complaint: Extremity Injury, Lower Stated complaint: Left leg pain Time Seen by Provider: 08/14/22 02:28 History of Present Illness: Patient reports that he was in the kitchen he had been drinking beer and he twisted his knee and fell onto his left knee. He reports extreme pain since that time. Unable to bear weight. He denies that he had anything else. He denies hitting his head he denies any loss of consciousness. Review of Systems Musc: Reports: joint pain and joint swelling PFSH ED PFSH: Medical History Alcohol use disorder, severe, in early remission, dependence Generalized anxiety disorder Generalized anxiety disorder Post-traumatic stress disorder, chronic Psychiatric care Family History Other Arthritis Social History Smoking and tobacco status: current every day smoker cigarettes Packs smoked per day: 1 Years cigarettes smoked: 25 Quit status (tobacco): has tried quititng Second hand smoke exposure: Yes Alcohol intake: former Adopted: No Caregiver/support person: No Lives independently: No Household members: other Details: Sober living house Housing: Assisted Living Facility Marital status: Number of children: 1 Number of grandchildren: 0 Highest education level completed: High School Graduate service: Yes 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 branch: [employer] Assignments: Inside [facility] [place] ([facility]) Known or Potential Exposure: None Current occupational status: employed Current occupation: [employer] Current occupational exposures/hazards: No Pets and animals: No History of recent travel: No Leisure activites: art and music Sexually active: No Current gender identity: Male Francine/Cheondoism: Mu-Ism Special francine needs: No Agree to transfusion: Yes Financial difficulty paying for basics: Not Very Hard Physical Exam Const: OTHER: Patient has the hiccups. He is alert and oriented. He reports that he has been drinking. He denies any hitting his head or loss of consciousness. He reports that his knee twisted and then he fell onto the knee. Resp: COMMON NORMALS: normal respiratory effort, No use of accessory muscles and clear to auscultation bilaterally AUSCULTATION: clear to auscultation bilaterally Cardio: COMMON NORMALS: regular rate, regular rhythm, S1 normal heart sound present and S2 normal heart sound present RATE: regular rate RHYTHM: regular rhythm HEART SOUNDS: S1 normal heart sound present and S2 normal heart sound present Extremity: NARRATIVE EXTREMITY EXAM: There is mild swelling to the left knee just inferior to the patella there is a larger hematoma approximately golf ball size. This is tender to palpation. No obvious bony deformity or step-off appreciated. CSM within normal limits to distal leg and foot. Pedal pulses palpable. Exam is limited due to patient's pain. Course Vital Signs: Vital signs: Vital Signs Temperature 97.8 F 08/14/22 02:09 Pulse Rate 61 08/14/22 02:59 Respiratory Rate 16 08/14/22 02:59 Blood Pressure 107/74 08/14/22 02:59 Pulse Oximetry 96 08/14/22 02:59 Oxygen Delivery Me thod 08/14/22 02:59 Oxygen Flow Rate 2 08/14/22 02:59 MDM - Extremity (Nontraumatic) Medical Decision Making Patient in by EMS after twisting his knee and falling onto his left knee at home. Patient reports that he has been drinking. On initial exam patient was reporting pain 10 out of 10. There is moderate hematoma noted inferior to the patella on the left knee. X-ray 4 view wet read: No acute osseous deformity appreciated. Radiologist has not read the film at this time. I will go ahead and make patient nonweightbearing, placed him in a knee immobilizer, provide him with crutches. Discussed conservative care at home including ice, rest, el evation of the extremity. Patient was requesting pain medication however he is very sleepy when not being spoken to. Given his alcohol ingestion I advised him that narcotic pain medication was not safe at this time. Patient states that he is doing better now and he no longer wants pain control. We will discharge patient to home. Discharge Plan Discharge Patient Disposition: Home Clinical Impression: Contusion of knee Qualifiers: Encounter type: initial encounter Laterality: left Qualified Code(s): S80.02XA - Contusion of left knee, initial encounter Knee sprain Qualifiers: Encounter type: initial encounter Involved ligament of knee: unspecified ligament Laterality: left Qualified Code(s): S83.92XA - Sprain of unspecified site of left knee, initial encounter Condition: Stable Prescriptions: No Action gabapentin 600 mg tablet 600 mg PO TID 30 Days Qty: 90 3RF lidocaine (PF) 10 mg/mL (1 %) solution 1 ml Infiltration ONCE Qty: 1 0RF clonazepam 0.5 mg tablet 1 mg .ROUTE .COMPLEX PRN (Reason: anxiety) Rx Instructions: 1 mg PRN; sertraline [Zoloft] 50 mg tablet 50 mg PO DAILY Qty: 30 1RF methylprednisolone acetate [Depo-Medrol] 40 mg/mL suspension 40 mg Infiltration ONCE Qty: 1 0RF methylprednisolone acetate [Depo-Medrol] 40 mg/mL suspension 40 mg Infiltration ONCE Qty: 1 0RF ranitidine HCl 150 mg tablet PO DAILY tramadol 50 mg tablet 50 mg PO TID PRN (Reason: pain) 7 Days Qty: 21 0RF multivitamin Tablet 1 tab PO DAILY 30 Days Qty: 30 1RF Rx Instructions: NEVER FILLED, OTC? atenolol 100 mg tablet 100 mg PO DAILY 30 Days Qty: 30 1RF triamcinolone acetonide 0.1 % cream 1 applic topical BID Qty: 80 0RF Calagesic 1-8 % lotion 1 applic topical QID PRN (Reason: itching) Qty: 177 0RF Discharge Orders: Discharge ED (Routine); Ordered 08/14/22 Ordered By: Diana Carrera Referrals: Familia Khan MD [Primary Care Provider] - Discharge Diet: Usual diet Discharge Activity: Use walker/crutches as instructed Patient Instructions: Knee Sprain (ED) Activity Restrictions/Additional Instructions: Keep knee immobilizer on and utilize crutches to be nonweightbearing on the left leg. Elevate, ice, rest the extremity. Follow-up with orthopedics. Return to the ER as needed for any new or worsening symptoms. Coding Level of Care Code ED Field Marketing Director for Ab Fwd Exam Expanded Problem Focused
[2022-08-14 02:59] VITALS: BP 107/74; PULSE 61; RESP 16; O2SAT 96
--- NOTE | 2022-08-14 03:00 | PC.NURSE ---
Pt drowsy, O2 in high 80s while sleeping, 2 L NC placed on pt
[2022-08-14 03:26] VITALS: BP 109/74; PULSE 76; RESP 16; O2SAT 97
--- NOTE | 2022-08-14 08:09 | DCPLANNER ---
Addendum entered by Geetha Lopez 08/26/22 16:06: Patient had a follow up appointment scheduled with ortho - patient did attend appointment. Original Note: post office manager had message to schedule a follow up appointment for patient with ortho. post office manager sent patients information to the front office staff at ortho. Patients information will be printed and reviewed. Clinic will call patient with appointment information.
== END 2022-08-14 03:27 | disposition home or self-care (01) ==
PROVIDERS: Emergency Provider Nurse Practitioner Family; PCP Internal Medicine Cardiovascular Disease
DX: S80.02XA Contusion of left knee, initial encounter (principal); S83.92XA Sprain of unspecified site of left knee, initial encounter; W19.XXXA Unspecified fall, initial encounter; Y92.000 Kitchen of unspecified non-institutional (private) residence as the place of occurrence of the external cause; F17.210 Nicotine dependence, cigarettes, uncomplicated; F10.90 Alcohol use, unspecified, uncomplicated
CPT/HCPCS: 29530; 73562; 99283; E0114

== ENCOUNTER → 2022-08-15 11:50 | Outpatient (BNVA) | payer MEDICAID, SELFPAY ==
[2022-05-23 10:57] VITALS: BP 124/76; BMI 24.5
== END ==
PROVIDERS: PCP Internal Medicine Cardiovascular Disease; Referring Provider Nurse Practitioner Family; Visit Provider Specialist
DX: S83.92XA Sprain of unspecified site of left knee, initial encounter (principal); X50.1XXA Overexertion from prolonged static or awkward postures, initial encounter
CPT/HCPCS: 73560; 73562; 73565

== ENCOUNTER 2022-08-15 14:41 | Outpatient (CLI) | payer MEDICAID, SELFPAY ==
[2022-05-23 10:57] VITALS: BP 124/76; BMI 24.5
== END 2022-08-15 14:42 | disposition home or self-care (01) ==
LOC: SPT 14:42
PROVIDERS: PCP Internal Medicine Cardiovascular Disease; Visit Provider Specialist
DX: Z46.89 Encounter for fitting and adjustment of other specified devices (principal); S80.02XD Contusion of left knee, subsequent encounter; S83.92XD Sprain of unspecified site of left knee, subsequent encounter; X58.XXXD Exposure to other specified factors, subsequent encounter
CPT/HCPCS: 97760; L1832

== ENCOUNTER 2022-09-18 08:22 | Outpatient (CLI) | payer MEDICAID, SELFPAY ==
[2022-05-23 10:57] VITALS: BP 124/76; BMI 24.5
--- NOTE | 2022-09-18 08:39 | MR_ITS ---
WS: [id number] MRI LEFT KNEE HISTORY: twisting injury COMPARISON: 08/14/2022 Anterior cruciate ligament: Intact. Posterior cruciate ligament: Intact. Medial collateral ligament: Intact. Posterior lateral corner structures: Intact. Medial menisci: Posterior horn towards the meniscal root is surrounded by increased T2 signal and flu id. There is some very mild increased signal involving the posterior third of the meniscus towards th e meniscal root. Anterior horn is normal. Lateral meniscus: Intact. Normal signal, size and shape. Extensor mechanism: Distal quadriceps tendon and patellar tendons are intact. Fluid and soft tissue: Small suprapatellar joint effusion. Moderate amount of soft tissue edema anter ior to the patellar tendon and extending over the anterior tibial tubercle. The patellar tendon appea rs intact. No marrow edema. No Ayala's cyst. Osseous and articular structures: Patellofemoral compartment: Mild chondromalacia in the medial patellar facet. No marrow edema. Medial compartment: Negative. Lateral compartment: Negative. MR/MR knee LT wo con* [id number] IMPRESSION: 1. Subcutaneous soft tissue edema and fluid along the anterior knee. Most sign ificant anterior to the patellar tendon and tibial tubercle. No fracture identi fied. Patellar tendon is intact. 2. Increase fluid surrounding the posterior horn of the medial meniscus. Small amount of increased signal but cannot confirm tear. Findings are suspicious fo r meniscocapsular separation. Differential would include a longitudinal tear in the peripheral posterior horn. 3. Mild chondromalacia medial patellar facet.
== END 2022-09-18 08:23 | disposition home or self-care (01) ==
LOC: RAD 08:23
PROVIDERS: PCP Internal Medicine Cardiovascular Disease; Visit Provider Specialist
DX: S80.02XA Contusion of left knee, initial encounter (principal); S83.92XA Sprain of unspecified site of left knee, initial encounter; X58.XXXA Exposure to other specified factors, initial encounter; R60.0 Localized edema; M22.42 Chondromalacia patellae, left knee
CPT/HCPCS: 73721

== ENCOUNTER 2022-11-12 08:12 | Day surgery (SDC) | payer MEDICAID, SELFPAY ==
[2022-05-23 10:57] VITALS: BP 124/76; BMI 24.5
[2022-11-11 13:27] VITALS: BMI 24.7
[2022-11-12] VITALS (9 sets, daily range): BP systolic 142–181; BP diastolic 72–102; PULSE 40–68; RESP 12–18; TEMP 36.1–36.6; O2SAT 93–100
[2022-11-12] MEDS: acetaminophen 1,000 MG/100 ML PIGGYBACK 400 MG IV (09:03)
[2022-11-12] MEDS: sodium chloride 0.9% 1,000 ML 30 ML IV (09:04)
--- NOTE | 2022-11-12 09:10 | P.ANESASSM_ITS ---
Pre-Anesthetic Assessment Height/Weight: Height 1.78 m Weight 78.018 kg Temp Pulse Resp BP Pulse Ox O2 Del Method 97.3 F L 48 L 18 142/72 97 11/12/22 08:37 11/12/22 08:37 11/12/22 08:37 11/12/22 08:37 11/12/22 08:37 11/12/22 08:54 Preop Diagnosis: Left knee medial meniscus tear Operation Date: 11/12/22 09:50 Proposed Procedures p Left knee diagnostic and surgical meniscal repair versus menisectomy 73899, 37205 and 20116,S83.222A(Left) - Gt Jacobs DO s Meniscal Root Repair(Left) - Gt Jacobs DO Familial anesthetic complications: None Was Beta Gonzalo taken within 24 hours: Yes Was Clonidine taken within 24 hours: N/A Last intake: Intake Last Liquid Date 11/11/22 Last Liquid Time 17:00 Last Solid Date 11/11/22 Last Solid Time 12:00 Social Alcohol (5-6 beers a night (couple times a week)) and Tobacco Exam alert, oriented x 3, clear to auscultation bilaterally and regular rate & rhythm Airway Mallampati: Class II Dentition: other (missing) CV/HEM Hypertension GI Gastroesophageal Reflux Disease Anesthetic Plan ASA status: 2 Anesthesia: General and Regional (specify below) Risk of > 500 ml blood loss (7ml/kg in children): No Medications/Allergies Home Medications Medication Instructions Recorded Confirmed Last Taken Type atenolol 100 mg tablet 100 mg PO DAILY 30 days #30 tabs 10/11/21 11/12/22 11/12/22 07:30 Rx multivitamin 1 tab PO DAILY 30 days #30 tabs 10/11/21 11/11/22 11/11/22 Rx gabapentin 600 mg tablet 600 mg PO TID 30 days #90 tabs 11/14/21 11/12/22 11/12/22 07:30 Rx clonazepam 0.5 mg tablet 1 mg .Route .COMPLEX PRN anxiety 07/02/22 11/12/22 11/12/22 07:30 History LEYDI #1 ea 08/15/22 10/16/22 Unknown Rx acetaminophen 500 mg tablet 1,000 mg PO TID PRN fever #180 tabs 08/15/22 11/12/22 3 Days Ago Rx (Tylenol Extra Strength) ~02/04/23 meloxicam 15 mg tablet 15 mg PO DAILY pain 11/11/22 11/12/22 1 Day Ago History ~11/11/22 pantoprazole 40 mg tablet,delayed 40 mg PO DAILY 11/11/22 11/12/22 11/12/22 07:30 History release (Protonix) Allergies Allergy/AdvReac Type Severity Reaction Status Date / Time aspirin Allergy ADR-Nose Verified 11/12/22 08:52 Bleed Current Medications Generic Name Dose Route Start Last Admin Trade Name Carissa PRN Reason Stop Dose Admin Sodium Chloride 1,000 mls @ 30 mls/hr 11/12/22 08:45 11/12/22 09:04 Sodium Chloride 0.9% IV 11/13/22 08:44 30 mls/hr .Q24H DREW Administration PFSH Anesthesia Medical History Alcohol use disorder, severe, in early remission, dependence Generalized anxiety disorder Generalized anxiety disorder Post-traumatic stress disorder, chronic Psychiatric care Family History Other Arthritis Social History Smoking and tobacco status: current every day smoker cigarettes Packs smoked per day: 1 Years cigarettes smoked: 25 Quit status (tobacco): has tried quititng Second hand smoke exposure: Yes Alcohol intake: former Adopted: No Caregiver/support person: No Lives independently: No Household members: other Details: Sober living house Housing: Assisted Living Facility Marital status: Number of children: 1 Number of grandchildren: 0 Highest education level completed: High School Graduate service: Yes 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 branch: [employer] Assignments: Inside [facility] ([facility]) Known or Potential Exposure: None Current occupational status: employed Current occupation: [employer] Current occupational exposures/hazards: No Pets and animals: No History of recent travel: No Leisure activites: art and music Sexually active: No Current gender identity: Male Francine/Buddhism: Alevism Special francine needs: No Agree to transfusion: Yes Financial difficulty paying for basics: Not Very Hard Data Anesthesia Cardiac Studies: No Data to Display
--- NOTE | 2022-11-12 09:37 | W.PM.OPSUD ---
Surgery/Procedure H&P Update DATE OF PROCEDURE: November 12, 2022 DATE H&P PERFORMED: 10/16/22 CHANGES TO PREVIOUS DOCUMENTATION: None. Patient seen evaluated by myself this morning. History once again reveals that he had a traumatic incident roughly he states he had an injury of a fall and twisting of his knee where he felt pain instantly in his left knee is continued to not improve this happened back on 08/13/2022. Was initially seen by my partner and an MRI was ordered. Results did demonstrate a possible meniscocapsular separation/tear into the meniscal root. She does not perform root repairs and as result patient was referred to my office for evaluation. Initial appointment patient was seen evaluated by our orthopedic offices nurse practitioner and reviewed the MRI results. Patient is here today as he has had continued pain and discomfort with weightbearing as well as some mechanical symptoms. His pain is mostly the posterior medial aspect of the knee. He does have pain with Kindra's examination but no palpable click. His knee overall feels stable on examination. He does have retropatellar pain consistent with fat pad impingement when he goes in from flexion to extension. This point time patient's been detailed his treatment options as far as continued nonoperative versus operative intervention. Understanding his risks with surgery which include but are not limited to make it better or make it worse, blood clot, infection, decreased knee range of motion, persistent pain and crepitus, failure of repair, or meniscal root tear. Understanding these risks he agrees to proceed with surgical intervention. All questions have been answered at this time. Consent was reviewed and signed with the patient plan will be for a left knee diagnostic and surgical arthroscopy with partial medial meniscectomy versus meniscal repair. Patient understands and agrees with current plan. All questions answered. PREOP DIAGNOSIS: Left knee medial meniscus tear PRIMARY INDICATION FOR PROCEDURE: Left knee medial meniscus tear PLANNED PROCEDURE: Operation Date: 11/12/22 09:50 Proposed Procedures p Left knee diagnostic and surgical meniscal repair versus menisectomy 09662, 10410 and 87413,S83.222A(Left) - DO peter Walker Meniscal Root Repair(Left) - Gt Jacobs DO
--- NOTE | 2022-11-12 09:50 | ANES.PROC ---
Anesthesia Procedures Procedure/Date: 11/12/22 Nerve Block ^: Nerve Block 1: Main Anesthesia: general anesthesia Time Out Performed: Yes Consent: requested by attending/covering physician, from patient, from other, risks and benefits reviewed and patient agrees to proceed Nerve block location: adductor canal (R) Anesthesia monitors applied: pulse oximetry, EKG, BP cuff and oxygen Nerve block position: supine Anesthetic Used: ropivicaine 0.5% (30 ml) and with decadron (4 mg) Ultrasound used to: recognize landmarks and visualize and ID femerol nerve Nerve Stimulator Used?: No Interscalene/Femoral BLK: 4 stimuplex 21 g needle used for position and inplane approach, visualize local anesthetic spread and no vascular puncture identified Injection: neg aspiration of heme and paresthesia +/- Complications: none Additional Comments: performed with CAMILO Kathleen
[2022-11-12] MEDS: ceFAZolin 2,000 MG in sodium chloride 0.9% (plus) 50 ML 100 MG IV (09:52)
[2022-11-12] MEDS: lidocaine-epi 2% 20 mL INJ INJECTION (10:53)
[2022-11-12] MEDS: hyDRALAzine 20 mg/mL INJ 1 mL 5 MG IVP (11:57)
--- NOTE | 2022-11-12 12:15 | P.OP_ITS ---
Brief Operative Note Date of procedure: 11/12/22 Pre-op diagnosis: Left knee medial meniscus tear Post-op diagnosis: same (With extensive synovitis) Procedure Done: Left knee diagnostic and surgical arthroscopy with medial meniscus all inside repair Left knee diagnostic and surgical arthroscopy with extensive synovectomy of lateral medial and patellofemoral compartments. Surgeon: Gt Jacobs Estimated blood loss (mL): 5 Complications: None Post-op Plan: Patient taken to PACU in stable condition recovering well. Dressings on in place clean dry and intact. Will receive appropriate discharge instructions as well as pain medication postoperatively. Patient states he has issues with aspirin. At this point in time would recommend he utilize STEVE hose for mechanical prophylaxis. He is overall younger with no significant medical comorbidities and appropriate body habitus. I anticipate he will ambulate efficiently despite his restrictions. We will have him nonweightbearing to the left lower extremity as well as placed in a hinged [place] brace keeping range of motion from 0-90. We will see him back in the office in 2 weeks. Patient understands and agrees with current plan. All questions answered. Condition: stable Disposition: same day Coding Level of Care Code Acute Code for Ab Suarez
--- NOTE | 2022-11-12 12:17 | PM.PACU ---
PACU note Narrative: Patient taken to PACU in stable condition recovering well. Contacted therapy and appropriate brace being placed with set 0-90. Instructions of nonweightbearing given to patient. PACU staff as well as therapist states he already seems to be pushing his weightbearing restrictions. Patient once again was informed of his repair and his restrictions and the importance of adhering to these restrictions to keep from failure of repair. Patient does understand and verbalizes understanding and agreement. He is able to wiggle toes plantarflex dorsiflex ankle distal pulses palpable dressing clean dry and intact. Exam: awake Disposition: discharged
--- NOTE | 2022-11-12 12:20 | P.OP_ITS ---
Operative Report Date of procedure: November 12, 2022 Pre-op diagnosis: Preop Diagnosis Left knee medial meniscus tear Post-op diagnosis: Left knee medial meniscus tear Left knee extensive synovitis Procedure done: Left knee diagnostic and surgical arthroscopy with medial meniscus repair all inside Left knee diagnostic and surgical arthroscopy with extensive synovectomy Surgeon: Gt Jacobs DO Estimated blood loss: 5 mL 34 minutes IV fluids: 900 mL Complications: None Condition: stable Disposition: same day Brief History: Patient's been seen and worked up in the outpatient setting. He sustained a injury to his left knee. This was initially seen and worked up by my partner and given she does not perform possible meniscal repair given he was a potential candidate for this he was referred to my office. He was initially seen then by our orthopedic offices nurse practitioner who subsequently booked this patient for me. I reviewed her MRI findings and agree given his continuing of symptoms and MRI findings surgical intervention would be appropriate. He was then added on to my surgical schedule he underwent consent in the office and was at that point time instructed on his risk benefits complication alternatives surgical nonsurgical treatment options. He was then in the preoperative area seen and evaluated by myself with a full HPI and examination and review of his MRI. Findings are consistent with a medial meniscus tear. He does have some signs of fat pad impingement around the retropatellar space. We talked about his treatment options as far as nonoperative and operative intervention. At this point time through shared decision making elects proceed with surgical intervention. He understands his risk for surgery include but are not limited to make it better make it worse, failure of repair, retear of the meniscus, advancement of arthritis, knee stiffness, potential weightbearing restrictions, blood clot, infection, injury to nerves or vessels. Understand this risk for surgery he agrees to proceed with surgical intervention. He elects proceed with surgery today. Procedure: Patient seen evaluated in the preoperative holding area. Consent was reviewed and signed with patient. Correct extremity was then marked. Seen evaluated by anesthesia once cleared for surgery was brought back to the operative suite transported on the OR table in supine position all bony prominences well-padded patient was appropriate secured to the bed. Nonsterile tourniquet applied to the left thigh. Patient then subsequently underwent anesthesia per the Anesthesia Department. Once appropriately anesthetized the left lower extremity was then prepped and draped in standard orthopedic fashion. Final timeout was subsequently performed. Patient received appropriate preoperative antibiotics. Esmarch tourniquet was used exsanguinate the left lower extremity to 250 mmHg. Tourniquet was insufflated. A standard 2 portal vertical incision diagnostic and surgical arthroscopy of the left knee was performed in standard fashion. Established my inferior lateral working arthroscope portal introduced the arthroscope and visualize the suprapatellar pouch. The suprapatellar pouch was noticed to have significant synovitis. I then brought the arthroscope into the patellofemoral space which was obscured given patient's extensive synovitis. My plan was to proceed with addressing this at the end of our case. Visualized the medial gutter which was free of loose bodies and then subsequently introduced the arthroscope to the medial compartment. Spinal needle was used to establish the medial working portal utilizing outside in technique. Once this was performed I then intro duced the arthroscopic probe. The medial compartment was found to be pristine with grade I chondromalacia. There is slight fraying of the anterior meniscus but no tear. I then placed arthroscopic probe to the meniscal root which was found to be intact. Patient did have a positive wave sign at the posterior body to posterior horn junction. I did introduced the arthroscopic probe and this subsequently fell into a longitudinal tear at the red red zone at the meniscocapsular junction. This was able to be hypermobile and pulled into the medial compartment more than the anatomic meniscus. At this point time given the hypermobility and longitudinal tear and its location this was found to be amendable to repair fixation. This was not very large in nature and would accommodate only 1 Arthrex fiber stitch that should bridge the small tear. He had articular surface of the medial Compartment and as a result I felt he be an appropriate candidate for repair. While our meniscal repair set was being opened I then proceeded with my rest of my arthroscopic procedure. The intercondylar notch was subsequently visualized and the ACL and PCL were intact. Patient did have synovitis in the lateral compartment which synovectomy was performed with arthroscopic shaver. I then visualized the lateral compartment which was found to have grade I chondromalacia and an intact meniscus with no evidence of meniscal tear throughout the cords body as well as root. Next I visualized the lateral gutter which was free of loose bodies and introduced the arthroscope into the patellofemoral space. The extensive synovitis was noted and arthroscopic shaver was then introduced and performed an extensive synovectomy of the patellofemoral space. I then switched arthroscopic portal sites visualizing from the medial working portal and performed completed the synovectomy. At this point time I then utilized this position for my meniscal repair. I then returned to the medial compartment opened Arthrex his all inside fiber stitch technology. I then introduced a half pipe to introduce the all inside deploying device of the fiber stitch. This was subsequently introduced I had direct visualization of the medial compartment. Initially I made an attempt however poor visualization was made of the medial compartment I then utilizing a spinal needle fenestrated the MCL just to provide for an additional millimeter to of medial space opening just to accommodate for a meniscus repair without chondral injury. At this point time I reintroduced the fiber stitch and had great visualization of the tear. Once this was noted I then placed a standard horizontal mattress stitch across the meniscocapsular separation the longitudinal tear of the posterior horn body junction to appropriate passes were then made with a horizontal mattress stitch and this was subsequently tensioned appropriately utilizing an arthroscopic probe. Once this was done I was satisfied with my laying of the meniscus I then subsequently introduced the arthroscopic umbrella cutter and the excess suture was removed. I then introduced the arthroscopic probe and placed this underneath and over top at the longitudinal tear site and aggressive stress of the meniscus repair was performed and no hypermobility and appropriate repair of the meniscus was performed. No further tear or excess suture was needed. I then in order to augment for healing I then utilized a drill and K wire to perform bone marrow stimulation of the intercondylar notch off the anterior face and none articular margin of the intercondylar notch of the lateral femoral condyle. Appropriate bone marrow stimulation was noted. This completed my procedure. Tourniquet was then subsequently deflated hemostasis satisfactory. Fluid was suctioned from the joint. All instruments were withdrawn. Portal sites were then closed with interrupted nylon suture. Portal sites injected with local anesthetic. I then dressed the incision sites with Xeroform 4 x 4's ABD Curlex and a Juan Alberto wrap. Patient was then placed into a hinged knee brace with range of motion set 0-90. Patient was then subsequently awakened from anesthesia and taken to PACU in stable condition. Disposition: Patient taken to PACU in stable condition recovering well. Will receive appropriate discharge instruction as well as pain medication postoperatively. Placed in a brace 0 to 90 degrees with knee range of motion at this time understands the importance of this as well as recommended nonweightbearing to the left lower extremity. Patient has issues with aspirin which classically I would give her DVT prophylaxis. He has low risk factors at this point time would recommend STEVE kramer for mechanical DVT prophylaxis as he ambulates. Patient understands and agrees with current plan. All questions answered. We will follow-up with me in the office in 2 weeks.
--- NOTE | 2022-11-12 13:28 | PC.NURSE ---
DISCHARGE INSTRUCTIONS GIVEN VERBALLY AND WRITTEN TO PT AND S.O. NON WEIGHT BEARING STRESSED TO PT AND WALKER SUPPLIED BY HOME. PT AMBULATED OUT OF ROOM TO BATHROOM AND I REMINDED HIM OF NON WEIGHT BEARING ON OPERATIVE LEG AND THAT HE SHOULD BE USING WALKER. DR JUAN NOTIFIED AND HE SPOKE TO PT IN HIS ROOM. A NEW KNEE BRACE ORDERED BY DR JUAN FROM HIS OFFICE BECAUSE PT'S CURRENT ONE WAS BROKEN. BRACE DELIVERED TO PT AND HE PUT IT ON. PT CONTINUES TO WALK AROUND THE ROOM WITH OUT WALKER WHILE WAITING FOR HIS RIDE. I HAVE REMINDED PT TO USE WALKER SEVERAL TIMES AND EACH TIME HE STATED I KNOW AND CONTINUED TO AMBULATE WITHOUT IT.
--- NOTE | 2022-11-12 16:09 | ANE.PACU2 ---
Inpatient post-anesthesia follow up: Airway intact: Yes Vital signs: Temperature 97 F Pulse Rate 50 Respiratory Rate 18 Blood Pressure 142/78 Pulse Oximetry 97 Oxygen Delivery Me thod Room Air Oxygen Flow Rate 6 Fraction of Inspir ed Oxygen Hydration adequate: Yes Nausea and vomiting: No Pain level: 1 Mental status: Baseline
== END 2022-11-12 13:45 | disposition home or self-care (01) ==
PROVIDERS: PCP Internal Medicine Cardiovascular Disease; Visit Provider Student in an Organized Health Care Education/Training Program
PROC: (CPT 29870; principal; 2022-11-12 09:40)
PROC: (CPT 29882; 2022-11-12 09:40)
DX: S83.242A Other tear of medial meniscus, current injury, left knee, initial encounter (principal); X58.XXXA Exposure to other specified factors, initial encounter; M65.9 Synovitis and tenosynovitis, unspecified; I10 Essential (primary) hypertension; K21.9 Gastro-esophageal reflux disease without esophagitis; F17.210 Nicotine dependence, cigarettes, uncomplicated
CPT/HCPCS: 29876; 29881; C1713; J0131; J0360; J0461; J0690; J1100; J2250; J2405; J2704; J2795; J3010; J7030

== ENCOUNTER 2022-11-12 13:55 | Outpatient (CLI) | payer MEDICAID, SELFPAY ==
[2022-05-23 10:57] VITALS: BP 124/76; BMI 24.5
== END 2022-11-12 13:56 | disposition home or self-care (01) ==
LOC: SPT 13:56
PROVIDERS: PCP Internal Medicine Cardiovascular Disease; Visit Provider Student in an Organized Health Care Education/Training Program
DX: Z46.89 Encounter for fitting and adjustment of other specified devices (principal); S83.222D Peripheral tear of medial meniscus, current injury, left knee, subsequent encounter; X58.XXXD Exposure to other specified factors, subsequent encounter
CPT/HCPCS: 97760; L1832

== ENCOUNTER 2023-03-09 16:22 | Inpatient (IN) | payer MEDICAID, SELFPAY ==
[2022-05-23 10:57] VITALS: BP 124/76; BMI 24.5
[2023-03-09 16:23] VITALS: BP 122/84; PULSE 83; RESP 16; TEMP 37; O2SAT 95
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
[2023-03-09 17:45] LABS: Basophils # 0.1 10^3/uL (0.0-0.1); Basophils % 1.1 %; Eosinophils # 0.1 10^3/uL (0.0-0.8); Eosinophils % 1.1 %; Hematocrit 46.6 % (42.0-52.0); Hemoglobin 15.8 g/dL (11.7-16.6); Lymphocytes # 2.6 10^3/uL (0.8-4.8); Lymphocytes % 46.4 %; Mean Corpuscular HGB Conc 33.9 g/dL (30.0-36.0); Mean Corpuscular Hemoglobin 34.7 pg (28.0-34.0); Mean Corpuscular Volume 102.4 fl (80-94); Mean Platelet Volume 8.4 fL (7.4-10.4); Monocytes # 0.6 10^3/uL (0.2-0.9); Monocytes % 10.3 %; Neutrophils # 2.29 10^3/uL (1.8-7.7); Neutrophils % 40.7 %; Nucleated Red Blood Cells % 0 %; Platelet Count 181 10^3/cmm (130-400); Red Blood Count 4.55 10^6/uL (4.1-5.3); Red Cell Distribution Width 12.5 % (12.1-15.1); White Blood Count 5.6 10^3/uL (4.0-10.0)
[2023-03-09 18:09] LABS: Alanine Aminotransferase 16 U/L (0-41); Albumin Level 4.1 g/dL (3.5-5.2); Alkaline Phosphatase 71 U/L (40-130); Anion Gap 15.5 (5-19); Aspartate Amino Transferase 26 U/L (0-40); Blood Urea Nitrogen 13 mg/dL (6-20); Calcium 7.8 mg/dL (8.5-10.5); Carbon Dioxide 23 mmol/L (22-29); Chloride 108 mmol/L (98-107); Glomerular Filtration Rate 118.4 mL/min (90-130); Glucose 98 mg/dL (65-115); Osmolality Calculated 296 mOsm/kg (285-295); Potassium 3.5 mmol/L (3.5-5.1); Sodium 143 mmol/L (136-145); Total Bilirubin 0.3 mg/dL (0.15-1.2); Total Protein 6.1 g/dL (6.6-8.7)
[2023-03-09 18:15] LABS: Acetaminophen < 5.0 ug/mL (10-30); Salicylate < 0.3 mg/dL (3-10)
[2023-03-09 18:16] LABS: Alcohol Level 336 mg/dL (0-10)
[2023-03-09 19:40] LABS: Amphetamines Screen Urine Negative (Negative); Barbiturates Screen Urine Negative (Negative); Benzodiazepines Screen Urine Negative (Negative); Cocaine Screen Urine Negative (Negative); Opiate Screen Urine Negative (Negative); PCP Screen Urine Negative (Negative); THC Screen Urine Negative (Negative)
[2023-03-09 20:05] LABS: Add Urine Microscopic? YES; Bilirubin Urine Neg (Negative); Blood Urine Neg (Negative); Glucose Urine UA Norm (Normal); Ketones Urine Negative (Negative); Leukocyte Esterase Urine Negative (Negative); Nitrate Urine Negative (Negative); Protein Urine Trace (Negative); Specific Gravity, Urine 1.015 (1.005-1.030); Urine Appearance Clear (CLEAR); Urine Color Yellow (Yellow); Urobilinogen Urine Norm (Negative); pH Urine 5 (5-7)
[2023-03-09 20:06] LABS: Mucus Urine 1+ /hpf
--- NOTE | 2023-03-09 20:42 | PC.NURSE ---
Report called to Belem PHILLIPS at [facility]
[2023-03-09 20:52] VITALS: BP 109/66; PULSE 72; RESP 16; O2SAT 98
[2023-03-09 22:00] VITALS: BP 136/91; PULSE 80; RESP 18; O2SAT 95
[2023-03-09] MEDS: gabapentin 300 mg Capsule 600 MG PO (23:02)
[2023-03-09] MEDS: CLONazepam 1 mg Tablet PO (23:02)
[2023-03-09] MEDS: atenolol 50 mg Tablet 100 MG PO (23:02)
[2023-03-09] MEDS: nicotine 2 mg Gum BUCCAL (23:02)
--- NOTE | 2023-03-10 00:32 | PC.NURSE ---
Addendum entered by Belem Saenz RN 03/10/23 03:41: Pt arrived to [facility] @ approximately 2100 w/nurse and security at side. Pt smells of alcohol, and is rude and abrupt w/other pts stating that I have to be by myself I'm homicidal . Moved pt room to 155, assessments completed. Original Note: Pt arrived to [facility] @ approximately 2100 w/nurse and security at side. Pt smells of alcohol, and is rude and abrupt w/other pts stating that I have to be by myself I'm suicidal . Moved pt room to 155, assessments completed.
[2023-03-10] MEDS: pantoprazole DR 40 mg Tablet PO (05:20)
[2023-03-10] MEDS: atenolol 50 mg Tablet 100 MG PO (05:20)
[2023-03-10] MEDS: nicotine 2 mg Gum BUCCAL (05:50)
[2023-03-10 06:00] VITALS: BP 118/77; PULSE 74; RESP 18; TEMP 36.8; O2SAT 97
[2023-03-10] MEDS: multivitamin therapeutic Tablet 1 TAB PO (08:43)
[2023-03-10] MEDS: gabapentin 300 mg Capsule 600 MG PO ×3 (08:43→20:27)
[2023-03-10] MEDS: folic acid 1 mg Tablet PO (08:43)
[2023-03-10] MEDS: thiamine 100 mg Tablet PO (08:43)
[2023-03-10] MEDS: CLONazepam 1 mg Tablet PO ×2 (08:46→20:28)
--- NOTE | 2023-03-10 08:47 | PC.NURSE ---
PRN KLONOPIN KLONOPIN 1 MG GIVEN PO PER PT C/O STATED ANXIETY
[2023-03-10] MEDS: nicotine 21 mg Patch 1 PATCH TRANSDERMA (08:49)
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
[2023-03-10] MEDS: sertraline 50 mg Tablet 25 MG PO (13:12)
[2023-03-10 14:00] VITALS: BP 113/60; PULSE 66; RESP 16; TEMP 36.7; O2SAT 97
[2023-03-10] MEDS: quetiapine 100 mg Tablet 50 MG PO (20:28)
[2023-03-10 21:05] VITALS: BP 124/78; PULSE 72; RESP 16; TEMP 36.7; O2SAT 96
[2023-03-11 06:00] VITALS: BP 112/65; PULSE 70; RESP 18; TEMP 36.4; O2SAT 99
[2023-03-11] MEDS: atenolol 50 mg Tablet 100 MG PO (06:14)
[2023-03-11] MEDS: pantoprazole DR 40 mg Tablet PO (06:14)
[2023-03-11] MEDS: nicotine 21 mg Patch 1 PATCH TRANSDERMA (08:16)
[2023-03-11] MEDS: multivitamin therapeutic Tablet 1 TAB PO (08:17)
[2023-03-11] MEDS: folic acid 1 mg Tablet PO (08:17)
[2023-03-11] MEDS: sertraline 50 mg Tablet 25 MG PO (08:18)
[2023-03-11] MEDS: gabapentin 300 mg Capsule 600 MG PO ×3 (08:18→19:54)
[2023-03-11] MEDS: thiamine 100 mg Tablet PO (08:18)
[2023-03-11] MEDS: hyDROXYzine 25 mg Capsule 50 MG PO (10:16)
[2023-03-11 14:00] VITALS: BP 116/70; PULSE 74; RESP 20; TEMP 36.6; O2SAT 98
[2023-03-11] MEDS: CLONazepam 1 mg Tablet PO ×2 (14:01→19:54)
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
[2023-03-11] MEDS: quetiapine 100 mg Tablet 150 MG PO (19:54)
[2023-03-11 20:25] VITALS: BP 124/79; PULSE 77; RESP 18; TEMP 36.8; O2SAT 97
[2023-03-12 06:00] VITALS: BP 98/54; PULSE 60; RESP 18; TEMP 36.4; O2SAT 96
[2023-03-12] MEDS: atenolol 50 mg Tablet 100 MG PO (06:03)
[2023-03-12] MEDS: pantoprazole DR 40 mg Tablet PO (06:03)
[2023-03-12] MEDS: nicotine 21 mg Patch 1 PATCH TRANSDERMA (09:50)
[2023-03-12] MEDS: CLONazepam 1 mg Tablet PO ×3 (09:50→20:34)
[2023-03-12] MEDS: multivitamin therapeutic Tablet 1 TAB PO (09:51)
[2023-03-12] MEDS: thiamine 100 mg Tablet PO (09:51)
[2023-03-12] MEDS: gabapentin 300 mg Capsule 600 MG PO ×3 (09:51→20:34)
[2023-03-12] MEDS: folic acid 1 mg Tablet PO (09:51)
[2023-03-12] MEDS: sertraline 50 mg Tablet PO (10:07)
[2023-03-12 14:00] VITALS: BP 110/72; PULSE 69; RESP 16; TEMP 36.6; O2SAT 96
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
[2023-03-12] MEDS: naltrexone hcl 50 mg Tablet PO (15:00)
[2023-03-12] MEDS: quetiapine 100 mg Tablet 200 MG PO (20:34)
[2023-03-12 20:57] VITALS: BP 131/76; PULSE 99; RESP 18; TEMP 36.5; O2SAT 95
[2023-03-13] MEDS: pantoprazole DR 40 mg Tablet PO (05:56)
[2023-03-13] MEDS: atenolol 50 mg Tablet 100 MG PO (05:56)
[2023-03-13 06:00] VITALS: BP 103/64; PULSE 80; RESP 16; TEMP 36.4; O2SAT 95
[2023-03-13] MEDS: folic acid 1 mg Tablet PO (09:04)
[2023-03-13] MEDS: gabapentin 300 mg Capsule 600 MG PO ×2 (09:04→14:37)
[2023-03-13] MEDS: sertraline 50 mg Tablet 75 MG PO (09:05)
[2023-03-13] MEDS: thiamine 100 mg Tablet PO (09:05)
[2023-03-13] MEDS: CLONazepam 1 mg Tablet PO ×2 (09:05→14:38)
[2023-03-13] MEDS: naltrexone hcl 50 mg Tablet PO (09:05)
[2023-03-13] MEDS: nicotine 21 mg Patch 1 PATCH TRANSDERMA (09:05)
[2023-03-13] MEDS: multivitamin therapeutic Tablet 1 TAB PO (09:05)
[2023-03-13 14:00] VITALS: BP 123/79; PULSE 60; RESP 16; TEMP 36.4; O2SAT 96
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
[2023-03-13 14:48] VITALS: BP 103/64; PULSE 80; RESP 16; TEMP 36.4; O2SAT 95
--- NOTE | 2023-03-13 16:33 | PC.NURSE ---
written discharge instruction discussed and left with patient. pt stated understanding and compliance of instructions. medication from pharmacy given to patient.
== END 2023-03-13 16:40 | disposition home or self-care (01) | DRG 897 ==
LOC: ER 20:08 → NP 20:10
PROVIDERS: Emergency Medicine; Admitting Provider Psychiatry & Neurology Psychiatry; Emergency Provider Emergency Medicine; PCP Internal Medicine Cardiovascular Disease; Visit Provider Psychiatry & Neurology Psychiatry
DX: F10.229 Alcohol dependence with intoxication, unspecified (principal); R45.851 Suicidal ideations; Y90.8 Blood alcohol level of 240 mg/100 ml or more; R45.850 Homicidal ideations; G89.29 Other chronic pain; M54.9 Dorsalgia, unspecified; F17.210 Nicotine dependence, cigarettes, uncomplicated; F43.12 Post-traumatic stress disorder, chronic; F41.1 Generalized anxiety disorder; F32.9 Major depressive disorder, single episode, unspecified; Z98.1 Arthrodesis status; Z81.1 Family history of alcohol abuse and dependence; Z62.810 Personal history of physical and sexual abuse in childhood; Z62.811 Personal history of psychological abuse in childhood
CPT/HCPCS: 36415; 80053; 80306; 80307; 81001; 85025; 96372; 97150; 97165; 99238; 99285; J3411

== ENCOUNTER → 2023-04-17 15:35 | Outpatient (BNVA) | payer OTHER, SELFPAY ==
[2023-04-10 10:25] VITALS: BP 124/76; BMI 24.5
== END ==
PROVIDERS: PCP Internal Medicine Cardiovascular Disease; Visit Provider Nurse Practitioner Psychiatric/Mental Health
DX: F41.1 Generalized anxiety disorder (principal); Z79.899 Other long term (current) drug therapy
CPT/HCPCS: 80061; 83036

== ENCOUNTER 2023-06-03 14:59 | Inpatient (IN) | payer MEDICAID, SELFPAY ==
[2023-05-07 16:34] VITALS: BP 140/81; BMI 23.1
[2023-06-03 15:01] VITALS: BP 148/97; PULSE 85; TEMP 36.6; O2SAT 94; BMI 23.6
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
[2023-06-03 15:43] LABS: Basophils # 0.1 10^3/uL (0.0-0.1); Basophils % 1.3 %; Eosinophils % 0.2 %; Hematocrit 49.5 % (37-53); Lymphocytes # 1.7 10^3/uL (0.8-4.8); Lymphocytes % 31.7 %; Mean Corpuscular HGB Conc 35.2 g/dL (30-55); Mean Corpuscular Hemoglobin 34.7 pg (27-33); Mean Corpuscular Volume 98.6 fl (82-101); Mean Platelet Volume 8.5 fL (7.4-10.4); Monocytes % 18.5 %; Neutrophils % 47.9 %; Nucleated Red Blood Cells % 0 %; Platelet Count 196 10^3/cmm (157-399); Red Blood Count 5.02 10^6/uL (3.85-5.65); White Blood Count 5.42 10^3/uL (3.29-11.43)
[2023-06-03 16:00] LABS: Alanine Aminotransferase 20 U/L (0-41); Albumin Level 4.7 g/dL (3.5-5.2); Alcohol Level 283 mg/dL (0-10); Alkaline Phosphatase 102 U/L (40-130); Anion Gap 13.1 (5-19); Aspartate Amino Transferase 24 U/L (0-40); Blood Urea Nitrogen 13 mg/dL (6-20); Calcium 8.7 mg/dL (8.5-10.5); Carbon Dioxide 30 mmol/L (22-29); Chloride 101 mmol/L (98-107); Globulin 2.1 g/dL (1.3-4.6); Glomerular Filtration Rate 141.5 mL/min (90-130); Glucose 140 mg/dL (65-115); Osmolality Calculated 294 mOsm/kg (285-295); Potassium 3.1 mmol/L (3.5-5.1); Sodium 141 mmol/L (136-145); Total Bilirubin 0.5 mg/dL (0.15-1.2); Total Protein 6.8 g/dL (6.6-8.7)
[2023-06-03 16:03] LABS: Acetaminophen < 5.0 ug/mL (10-30); Creatinine Clr Calc Pharmacy 150.2054; Salicylate < 0.3 mg/dL (3-10)
--- NOTE | 2023-06-03 16:08 | ECG_ITS ---
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 Measurements Intervals [place] Rate: 77 P: 46 PA: 201 QRS: -31 QRSD: 115 T: 55 QT: 391 QTc: 445 Interpretive Statements SINUS RHYTHM LEFT AXIS DEVIATION [QRS AXIS < -30] INCOMPLETE RIGHT BUNDLE BRANCH BLOCK [90+ ms QRS DURATION, TERMINAL R IN V1/V2, 40+ ms S IN I/aVL/V4/V5/V6] VOLTAGE CRITERIA FOR LVH [MEETS CRITERIA IN ONE OF: R(aVL), S(V1), R(V5), R(V5/V6)+S(V1)] POSSIBLE SEPTAL MYOCARDIAL INFARCTION , OF INDETERMINATE AGE [30 ms Q WAVE IN V1/V2] Compared to ECG 07/12/2018 20:30:30 Left-axis deviation now present Incomplete right bundle-branch block now present Left ventricular hypertrophy now present Myocardial infarct finding now present Sinus bradycardia no longer present Sinus arrhythmia no longer present Electronically Signed On 06-03-2023 23:58:01 CDT by Nicci Jaimes M.D. [id number]
[2023-06-03] MEDS: CLONazepam 0.5 mg Tablet PO (17:35)
[2023-06-03] MEDS: pantoprazole DR 40 mg Tablet PO ×2 (17:35→20:53)
[2023-06-03] MEDS: potassium chloride ER 20 mEq Tablet 40 MEQ PO (17:35)
[2023-06-03] MEDS: gabapentin 300 mg Capsule PO (17:35)
[2023-06-03] MEDS: sertraline 100 mg Tablet PO (17:36)
[2023-06-03] MEDS: quetiapine 300 mg Tablet PO (20:11)
[2023-06-03 20:21] VITALS: BP 125/81; PULSE 76; TEMP 37.1; O2SAT 94
[2023-06-03] MEDS: LORazepam 2 mg Tablet PO (20:38)
[2023-06-03] MEDS: gabapentin 300 mg Capsule 600 MG PO (20:53)
[2023-06-03 22:00] VITALS: BP 138/85; PULSE 82; RESP 20; TEMP 36.8; O2SAT 95
[2023-06-04] MEDS: atenolol 50 mg Tablet 100 MG PO (05:32)
[2023-06-04] MEDS: pantoprazole DR 40 mg Tablet PO (05:32)
[2023-06-04 06:00] VITALS: BP 118/74; PULSE 75; RESP 16; O2SAT 92
[2023-06-04] MEDS: sertraline 100 mg Tablet PO (09:22)
[2023-06-04] MEDS: gabapentin 300 mg Capsule 600 MG PO ×3 (09:22→20:05)
[2023-06-04] MEDS: thiamine 100 mg Tablet PO (09:23)
[2023-06-04] MEDS: folic acid 1 mg Tablet PO (09:23)
[2023-06-04] MEDS: multivitamin therapeutic Tablet 1 TAB PO (09:23)
[2023-06-04 12:13] LABS: Add Urine Microscopic? NO; Charge for UA Resulting for Rev
[2023-06-04 12:19] LABS: Urine Appearance Clear (CLEAR); Urine Color Yellow (Yellow); pH Urine 6.5 (5-7)
[2023-06-04 12:20] LABS: Bilirubin Urine Neg (Negative); Blood Urine Neg (Negative); Glucose Urine UA Norm (Normal); Ketones Urine Negative (Negative); Leukocyte Esterase Urine Negative (Negative); Nitrate Urine Negative (Negative); Protein Urine Neg (Negative); Urobilinogen Urine Norm (Negative)
[2023-06-04 12:35] LABS: Amphetamines Screen Urine Negative (Negative); Barbiturates Screen Urine Negative (Negative); Benzodiazepines Screen Urine Positive (Negative); Cocaine Screen Urine Negative (Negative); Opiate Screen Urine Negative (Negative); PCP Screen Urine Negative (Negative); THC Screen Urine Negative (Negative)
[2023-06-04 14:00] VITALS: BP 139/92; PULSE 79; RESP 18; TEMP 36.4; O2SAT 98
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
[2023-06-04] MEDS: CLONazepam 1 mg Tablet PO ×2 (16:44→20:05)
[2023-06-04 20:05] VITALS: BP 125/86; PULSE 87; RESP 16; TEMP 37.1; O2SAT 95
[2023-06-04] MEDS: quetiapine 300 mg Tablet PO (20:05)
[2023-06-04] MEDS: trazodone 50 mg Tablet PO (21:27)
[2023-06-05 06:00] VITALS: BP 145/85; PULSE 66; RESP 16; TEMP 36.8; O2SAT 97
[2023-06-05] MEDS: atenolol 50 mg Tablet 100 MG PO (06:09)
[2023-06-05] MEDS: pantoprazole DR 40 mg Tablet PO (06:09)
[2023-06-05] MEDS: multivitamin therapeutic Tablet 1 TAB PO (09:12)
[2023-06-05] MEDS: folic acid 1 mg Tablet PO (09:12)
[2023-06-05] MEDS: thiamine 100 mg Tablet PO (09:12)
[2023-06-05] MEDS: CLONazepam 1 mg Tablet PO ×3 (09:12→19:57)
[2023-06-05] MEDS: gabapentin 300 mg Capsule 600 MG PO ×3 (09:12→19:57)
[2023-06-05] MEDS: sertraline 50 mg Tablet 150 MG PO (09:13)
[2023-06-05 13:40] VITALS: BP 107/67; PULSE 71; RESP 16; TEMP 36.8; O2SAT 95
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
[2023-06-05] MEDS: quetiapine 300 mg Tablet PO (19:57)
[2023-06-05 20:10] VITALS: BP 125/72; PULSE 74; RESP 20; TEMP 36.7; O2SAT 98
[2023-06-06 06:00] VITALS: BP 107/73; PULSE 83; RESP 18; O2SAT 95
[2023-06-06] MEDS: pantoprazole DR 40 mg Tablet PO (06:26)
[2023-06-06] MEDS: atenolol 50 mg Tablet 100 MG PO (06:26)
[2023-06-06] MEDS: sertraline 50 mg Tablet 150 MG PO (09:07)
[2023-06-06] MEDS: folic acid 1 mg Tablet PO (09:08)
[2023-06-06] MEDS: multivitamin therapeutic Tablet 1 TAB PO (09:08)
[2023-06-06] MEDS: thiamine 100 mg Tablet PO (09:08)
[2023-06-06] MEDS: CLONazepam 1 mg Tablet PO ×3 (09:08→20:23)
[2023-06-06] MEDS: gabapentin 300 mg Capsule 600 MG PO ×3 (09:08→20:23)
[2023-06-06 14:00] VITALS: BP 106/71; PULSE 78; RESP 17; TEMP 36.6; O2SAT 97
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
[2023-06-06] MEDS: quetiapine 100 mg Tablet PO (20:23)
[2023-06-06] MEDS: quetiapine 300 mg Tablet PO (20:23)
[2023-06-06 20:50] VITALS: BP 174/74; PULSE 68; RESP 18; TEMP 36.6; O2SAT 97
[2023-06-07 06:00] VITALS: BP 119/77; PULSE 74; RESP 18; TEMP 36.4; O2SAT 97
[2023-06-07] MEDS: atenolol 50 mg Tablet 100 MG PO (06:03)
[2023-06-07] MEDS: pantoprazole DR 40 mg Tablet PO (06:03)
[2023-06-07] MEDS: folic acid 1 mg Tablet PO (09:39)
[2023-06-07] MEDS: gabapentin 300 mg Capsule 600 MG PO ×3 (09:39→21:06)
[2023-06-07] MEDS: multivitamin therapeutic Tablet 1 TAB PO (09:39)
[2023-06-07] MEDS: sertraline 50 mg Tablet 150 MG PO (09:41)
[2023-06-07] MEDS: CLONazepam 1 mg Tablet PO ×3 (09:41→21:06)
[2023-06-07] MEDS: thiamine 100 mg Tablet PO (09:41)
[2023-06-07 14:00] VITALS: BP 124/78; PULSE 71; RESP 18; TEMP 36.3; O2SAT 97
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
[2023-06-07] MEDS: quetiapine 100 mg Tablet PO (21:06)
[2023-06-07] MEDS: quetiapine 300 mg Tablet PO (21:06)
[2023-06-07 21:35] VITALS: BP 124/80; PULSE 72; RESP 18; TEMP 36.8; O2SAT 95
[2023-06-08 06:00] VITALS: RESP 16; BMI 23.6
[2023-06-08] MEDS: gabapentin 300 mg Capsule 600 MG PO ×3 (08:58→20:30)
[2023-06-08] MEDS: thiamine 100 mg Tablet PO (08:58)
[2023-06-08] MEDS: pantoprazole DR 40 mg Tablet PO (08:58)
[2023-06-08] MEDS: sertraline 100 mg Tablet 200 MG PO (08:58)
[2023-06-08] MEDS: multivitamin therapeutic Tablet 1 TAB PO (08:58)
[2023-06-08] MEDS: folic acid 1 mg Tablet PO (08:58)
[2023-06-08] MEDS: CLONazepam 1 mg Tablet PO ×3 (08:58→20:31)
[2023-06-08] MEDS: atenolol 50 mg Tablet 100 MG PO (08:59)
[2023-06-08 12:43] VITALS: BP 107/65; PULSE 76; RESP 18; TEMP 36.7; O2SAT 94
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
[2023-06-08 20:04] VITALS: BP 127/81; PULSE 79; RESP 16; O2SAT 96
[2023-06-08] MEDS: quetiapine 100 mg Tablet PO (20:30)
[2023-06-08] MEDS: quetiapine 300 mg Tablet PO (20:30)
[2023-06-09 06:00] VITALS: RESP 19
[2023-06-09] MEDS: acetaminophen 325 mg Tablet 650 MG PO (06:27)
[2023-06-09] MEDS: pantoprazole DR 40 mg Tablet PO (08:30)
[2023-06-09] MEDS: CLONazepam 1 mg Tablet PO ×3 (08:30→20:01)
[2023-06-09] MEDS: multivitamin therapeutic Tablet 1 TAB PO (08:30)
[2023-06-09] MEDS: thiamine 100 mg Tablet PO (08:30)
[2023-06-09] MEDS: gabapentin 300 mg Capsule 600 MG PO ×3 (08:30→20:01)
[2023-06-09] MEDS: sertraline 100 mg Tablet 200 MG PO (08:30)
[2023-06-09] MEDS: folic acid 1 mg Tablet PO (08:30)
[2023-06-09] MEDS: atenolol 50 mg Tablet 100 MG PO (08:31)
[2023-06-09 12:10] LABS: Glucose Point of Care 133 mg/dL (70-110)
[2023-06-09 13:20] VITALS: BP 122/78; PULSE 92; RESP 17; TEMP 36.7; O2SAT 95
--- NOTE | 2023-06-09 13:47 | PC.NURSE ---
POC BLOOD GLUCOSE THAT IS ON PT CHART WAS ENTERED IN ERROR. GLASS ARTIST SCANNED WRONG PT STICKER PRIOR TO OBTAINING BLOOD GLUCOSE.
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
[2023-06-09] MEDS: quetiapine 300 mg Tablet PO (20:01)
[2023-06-09] MEDS: quetiapine 100 mg Tablet PO (20:02)
[2023-06-09 21:10] VITALS: BP 154/83; PULSE 67; RESP 16; O2SAT 95
[2023-06-10 06:00] VITALS: BP 110/73; PULSE 89; RESP 17; O2SAT 95
[2023-06-10] MEDS: gabapentin 300 mg Capsule 600 MG PO (08:28)
[2023-06-10] MEDS: multivitamin therapeutic Tablet 1 TAB PO (08:28)
[2023-06-10] MEDS: CLONazepam 1 mg Tablet PO (08:28)
[2023-06-10] MEDS: sertraline 100 mg Tablet 200 MG PO (08:28)
[2023-06-10] MEDS: atenolol 50 mg Tablet 100 MG PO (08:28)
[2023-06-10] MEDS: thiamine 100 mg Tablet PO (08:28)
[2023-06-10] MEDS: folic acid 1 mg Tablet PO (08:28)
[2023-06-10] MEDS: pantoprazole DR 40 mg Tablet PO (08:28)
--- NOTE | 2023-06-10 08:49 | PC.NURSE ---
During morning assessment, patient reports some mild generalized anxiety. Patient denies depression, AVH, SI, and HI. Patient appears to be in good spirits.
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
[2023-06-10 12:30] VITALS: BP 110/73; PULSE 89; RESP 17; O2SAT 95
== END 2023-06-10 14:00 | disposition home or self-care (01) | DRG 881 ==
LOC: ER 15:51 → NP 19:04
PROVIDERS: Admitting Provider Psychiatry & Neurology Psychiatry; Emergency Provider Emergency Medicine; PCP Internal Medicine Cardiovascular Disease; Visit Provider Psychiatry & Neurology Psychiatry
DX: F32.9 Major depressive disorder, single episode, unspecified (principal); F43.10 Post-traumatic stress disorder, unspecified; F10.229 Alcohol dependence with intoxication, unspecified; Y90.8 Blood alcohol level of 240 mg/100 ml or more; Z91.410 Personal history of adult physical and sexual abuse; Z62.811 Personal history of psychological abuse in childhood; Z62.810 Personal history of physical and sexual abuse in childhood; F17.210 Nicotine dependence, cigarettes, uncomplicated; R45.850 Homicidal ideations
CPT/HCPCS: 36415; 36416; 80053; 80306; 80307; 81003; 82962; 85025; 93005; 96372; 97150; 97165; 99238; 99285; J3411

== ENCOUNTER 2023-06-12 19:50 | Emergency (ER) | payer MEDICAID, SELFPAY ==
[2023-05-07 16:34] VITALS: BP 140/81; BMI 23.1
[2023-06-12 19:53] VITALS: BP 138/86; PULSE 89; RESP 18; TEMP 37.1; O2SAT 96; BMI 22.9
--- NOTE | 2023-06-12 20:03 | ED_ITS ---
HPI - Anxiety General: Chief Complaint: Anxiety Stated Complaint: HI Time Seen by Provider: 06/12/23 19:52 Source: patient and EMS Mode of arrival: EMS Limitations: no limitations History of Present Illness: 52-year-old male who was just released from the [facility] yesterday he states that he been drinking today and he called the ambulance because he feels like he needs to be readmitted to the [facility] because there is someone in there that he is wanting to kill and he is having homicidal ideations he denies any suicidal ideations he denies any worsening proving factors at this time. He does have some depression as well. Associated symptoms: Deny chest pain, chills, fever(s), headache(s), nausea or vomiting Review of Systems Const: Denies: fever(s), chills, body aches or change in appetite Eyes: Denies: blurry vision or eye discomfort ENMT: Denies: throat pain or dental pain Card: Denies: chest pain Resp: Denies: dyspnea GI: Denies: abdominal pain, nausea, vomiting or diarrhea : Denies: dysuria Musc: Denies: neck pain or back pain Skin/Breast: Denies: rash Neuro: Denies: headache(s) Psych: Reports: depression and homicidal ideation [facility] ED PFSH: Medical History Alcohol dependence, binge pattern Chronic back pain Cigarette nicotine dependence Post-traumatic stress disorder, chronic Psychiatric care Family History Other Arthritis Post-traumatic stress disorder, chronic Social History Smoking and tobacco status: current every day smoker cigarettes Packs smoked per day: 0.5 Years cigarettes smoked: 26 Quit status (tobacco): has tried quititng Number of times tried to quit tobacco: 2 Second hand smoke exposure: Yes Alcohol intake: current Alcohol intake frequency: few times a week Alcohol type: beer and hard liquor Substance/Drug Use: former Date of last use: early 20's Adopted: No Caregiver/support person: No Lives independently: No Household members: friend(s) Housing: House Marital status: Number of children: 1 Number of grandchildren: 0 Highest education level completed: High School Graduate service: Yes 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) Known or Potential Exposure: None Current occupational status: unemployed Current occupational exposures/hazards: No Pets and animals: No Leisure activites: music and other Leisure activities details: remodeling Sexually active: No Do you think of yourself as: Straight/Heterosexual Current gender identity: Male Francine/Samaritan: Muslim Special francine needs: No Agree to transfusion: Yes Financial difficulty paying for basics: Very Hard Physical Exam Const: COMMON NORMALS: no acute distress, patient oriented x3 and healthy appearing HENMT: COMMON NORMALS: normocephalic and atraumatic HEAD & SCALP: normocephalic and atraumatic Neck/C-Spine: COMMON NORMALS: full ROM and supple Chest: COMMONS NORMALS: normal inspection of the chest Resp: COMMON NORMALS: normal respiratory effort Cardio: COMMON NORMALS: regular rate, regular rhythm and No murmurs present (Cardio) RATE: regular rate RHYTHM: regular rhythm GI: INSPECTION: Yes normal to inspection Extremity: COMMON NORMALS: normal to inspection and full ROM Neuro: COMMON NORMALS: patient oriented x3, moves all extremities and no focal motor deficits Psych: COMMON NORMALS: mental status grossly normal, Normal thought process present and cooperative THOUGHT PROCESS: Normal thought process present THOUGHT CONTENT: Yes Homicidality present Skin: COMMON NORMALS: no rashes or lesions noted and no wounds GENERAL SKIN EXAM: no rashes or lesions noted Course Vital Signs: Vital signs: Vital Signs Temperature 98.7 F 06/12/23 19:53 Pulse Rate 89 06/12/23 19:53 Respiratory Rate 18 06/12/23 19:53 Blood Pressure 138/86 06/12/23 19:53 Pulse Oximetry 96 06/12/23 19:53 Oxygen Delivery Me thod Room Air, Nasal C annula 06/12/23 19:53 MDM - Anxiety Medical Decision Making Patient presents with alcohol intoxication initially had thoughts of harming others he is more sober now he denies it currently patient was evaluated Dr. Laureano who knows patient well he does not feel that he needs to be admitted to the psych [facility] patient is stable for discharge he is to follow-up with [facility] return if worsening. Lab Data 06/12/23 20:14 06/12/23 20:14 Laboratory Results WBC 7.26 10^3/uL (3.29-11.43) 06/12/23 20:14 RBC 4.22 10^6/uL (3.85-5.65) 06/12/23 20:14 Hgb 14.90 g/dL (11.27-16.99) 06/12/23 20:14 Hct 43.1 % (37-53) 06/12/23 20:14 MCV 102.1 fl (82-101) H 06/12/23 20:14 MCH 35.3 pg (27-33) H 06/12/23 20:14 MCHC 34.6 g/dL (30-55) 06/12/23 20:14 RDW 13.5 % (12.1-15.1) 06/12/23 20:14 Plt Count 202 10^3/cmm (157-399) 06/12/23 20:14 MPV 8.6 fL (7.4-10.4) 06/12/23 20:14 Neut % (Auto) 50.1 % 06/12/23 20:14 Lymph % (Auto) 32.5 % 06/12/23 20:14 [place] % (Auto) 14.5 % 06/12/23 20:14 Eos % (Auto) 1.1 % 06/12/23 20:14 Baso % (Auto) 0.6 % 06/12/23 20:14 Neut # (Auto) 3.64 10^3/uL (1.8-7.7) 06/12/23 20:14 Lymph # (Auto) 2.4 10^3/uL (0.8-4.8) 06/12/23 20:14 [place] # (Auto) 1.1 10^3/uL (0.2-0.9) H 06/12/23 20:14 Eos # (Auto) 0.1 10^3/uL (0.0-0.8) 06/12/23 20:14 Baso # (Auto) 0.0 10^3/uL (0.0-0.1) 06/12/23 20:14 Nucleated RBC % (auto) 0.3 % 06/12/23 20:14 Nucleated RBCs # 0.0 /100WBC 06/12/23 20:14 Sodium 137 mmol/L (136-145) 06/12/23 20:14 Potassium 3.6 mmol/L (3.5-5.1) 06/12/23 20:14 Chloride 101 mmol/L (98-107) 06/12/23 20:14 Carbon Dioxide 24 mmol/L (22-29) 06/12/23 20:14 Anion Gap 15.6 (5-19) 06/12/23 20:14 BUN 16 mg/dL (6-20) 06/12/23 20:14 Creatinine 0.7 mg/dL (0.7-1.2) 06/12/23 20:14 GFR Calculation 118.4 mL/min (90-130) 06/12/23 20:14 Glucose 101 mg/dL (65-115) 06/12/23 20:14 Calculated Osmolality 285 mOsm/kg (285-295) 06/12/23 20:14 Calcium 8.9 mg/dL (8.5-10.5) 06/12/23 20:14 Total Bilirubin 0.2 mg/dL (0.15-1.2) 06/12/23 20:14 AST 35 U/L (0-40) 06/12/23 20:14 ALT 38 U/L (0-41) 06/12/23 20:14 Alkaline Phosphatase 112 U/L (40-130) 06/12/23 20:14 Total Protein 7.1 g/dL (6.6-8.7) 06/12/23 20:14 Albumin 4.6 g/dL (3.5-5.2) 06/12/23 20:14 Globulin 2.5 g/dL (1.3-4.6) 06/12/23 20:14 Salicylates < 0.3 mg/dL (3-10) L 06/12/23 20:14 Acetaminophen < 5.0 ug/mL (10-30) L 06/12/23 20:14 Ethyl Alcohol 226 mg/dL (0-10) H 06/12/23 20:14 Discharge Plan Discharge Patient Disposition: Home Clinical Impression: Alcohol intoxication Condition: Stable Prescriptions: No Action gabapentin 600 mg tablet 600 mg PO TID 30 Days Qty: 90 3RF clonazepam [Klonopin] 1 mg tablet 1 mg PO TID PRN (Reason: walking) atenolol 100 mg tablet 100 mg PO .morning (DME) mikhail brace See Rx Instructions .Route .MEDSUPPLY Qty: 1 0RF Rx Instructions: As directed pantoprazole [Protonix] 40 mg tablet,delayed release (DR/EC) 40 mg PO .morning sertraline 100 mg Tablet 200 mg PO DAILY 30 Days Qty: 60 1RF quetiapine 100 mg Tablet 100 mg PO BEDTIME 30 Days Qty: 30 1RF quetiapine 300 mg tablet 300 mg PO BEDTIME 30 Days Qty: 30 1RF Discharge Orders: Discharge ED (Routine); Ordered 06/12/23 Ordered By: William Allred Referrals: Familia Khan MD [Primary Care Provider] - 1-3 days Discharge Diet: Advance as tolerated Discharge Activity: Resume usual activity Patient Instructions: Alcohol Intoxication (ED) Coding Level of Care Code ED Phosphoric Acid Supervisor for Ab Suarez
[2023-06-12 20:20] LABS: Basophils % 0.6 %; Eosinophils # 0.1 10^3/uL (0.0-0.8); Eosinophils % 1.1 %; Hematocrit 43.1 % (37-53); Lymphocytes # 2.4 10^3/uL (0.8-4.8); Lymphocytes % 32.5 %; Mean Corpuscular HGB Conc 34.6 g/dL (30-55); Mean Corpuscular Hemoglobin 35.3 pg (27-33); Mean Corpuscular Volume 102.1 fl (82-101); Mean Platelet Volume 8.6 fL (7.4-10.4); Monocytes # 1.1 10^3/uL (0.2-0.9); Monocytes % 14.5 %; Neutrophils # 3.64 10^3/uL (1.8-7.7); Neutrophils % 50.1 %; Nucleated Red Blood Cells % 0.3 %; Platelet Count 202 10^3/cmm (157-399); Red Blood Count 4.22 10^6/uL (3.85-5.65); Red Cell Distribution Width 13.5 % (12.1-15.1); White Blood Count 7.26 10^3/uL (3.29-11.43)
[2023-06-12 20:36] LABS: Alanine Aminotransferase 38 U/L (0-41); Albumin Level 4.6 g/dL (3.5-5.2); Alcohol Level 226 mg/dL (0-10); Alkaline Phosphatase 112 U/L (40-130); Aspartate Amino Transferase 35 U/L (0-40); Blood Urea Nitrogen 16 mg/dL (6-20); Calcium 8.9 mg/dL (8.5-10.5); Carbon Dioxide 24 mmol/L (22-29); Chloride 101 mmol/L (98-107); Globulin 2.5 g/dL (1.3-4.6); Glomerular Filtration Rate 118.4 mL/min (90-130); Glucose 101 mg/dL (65-115); Osmolality Calculated 285 mOsm/kg (285-295); Sodium 137 mmol/L (136-145); Total Bilirubin 0.2 mg/dL (0.15-1.2); Total Protein 7.1 g/dL (6.6-8.7)
[2023-06-12 20:38] LABS: Acetaminophen < 5.0 ug/mL (10-30); Salicylate < 0.3 mg/dL (3-10)
[2023-06-12 20:39] LABS: Anion Gap 15.6 (5-19); Potassium 3.6 mmol/L (3.5-5.1)
== END 2023-06-12 21:22 | disposition home or self-care (01) ==
PROVIDERS: Emergency Provider Emergency Medicine; PCP Internal Medicine Cardiovascular Disease
DX: F10.129 Alcohol abuse with intoxication, unspecified (principal); Y90.7 Blood alcohol level of 200-239 mg/100 ml; F17.210 Nicotine dependence, cigarettes, uncomplicated
CPT/HCPCS: 36415; 80053; 80307; 85025; 99283

== ENCOUNTER 2023-07-01 17:41 | Emergency (ER) | payer MEDICAID, SELFPAY ==
[2023-05-07 16:34] VITALS: BP 140/81; BMI 23.1
--- NOTE | 2023-07-01 17:43 | XRR_ITS ---
PROCEDURE INFORMATION: Exam: XR Right Shoulder Exam date and time: 07/01/2023 6:01 PM Age: 52 years old Clinical indication: Pain; Shoulder; Right; Additional info: RT shoulder pain, injury TECHNIQUE: Imaging protocol: Radiologic exam of the right shoulder. Views: 2 or more views. COMPARISON: CR XR chest 2V* [id number] 01/22/2022 10:59 PM FINDINGS: Bones/joints: Normal. Soft tissues: Normal. XR/XR shoulder RT min 2V* [id number] IMPRESSION: No acute findings.
[2023-07-01 17:55] VITALS: BP 141/86; PULSE 77; RESP 16; TEMP 36.6; O2SAT 96; BMI 23.3
--- NOTE | 2023-07-01 18:59 | W.ED.FALL ---
HPI - Fall General: Chief Complaint: Fall Stated Complaint: fall off roof, right shoulder Time Seen by Provider: 07/01/23 18:59 History of Present Illness: 52-year-old male patient states that he was on the roof of his shed trimming some limbs when he slipped and fell landing onto his right side. Patient reports most of his pain is in his right shoulder. Patient has good range of motion of the shoulder. Patient has some abrasions to the right elbow, right hip, and right knee. Patient weightbears without difficulty. Patient appears nontoxic. Patient appears and mild to moderate pain. Patient denies loss of consciousness. Review of Systems General: Reports: 10 or more systems reviewed and unremarkable except in HPI and below Musc: Reports: joint pain (Right shoulder injury) PFSH ED PFSH: Medical History Alcohol dependence, binge pattern Chronic back pain Cigarette nicotine dependence Post-traumatic stress disorder, chronic Psychiatric care Family History Other Arthritis Post-traumatic stress disorder, chronic Social History Smoking and tobacco status: current every day smoker cigarettes Packs smoked per day: 0.5 Years cigarettes smoked: 26 Quit status (tobacco): has tried quititng Number of times tried to quit tobacco: 2 Second hand smoke exposure: Yes Alcohol intake: current Alcohol intake frequency: few times a week Alcohol type: beer and hard liquor Substance/Drug Use: former Date of last use: early 20's Adopted: No Caregiver/support person: No Lives independently: No Household members: friend(s) Housing: House Marital status: Number of children: 1 Number of grandchildren: 0 Highest education level completed: High School Graduate service: Yes 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 branch: [employer] Assignments: Inside [facility] ([employer]) Known or Potential Exposure: None Current occupational status: unemployed Current occupational exposures/hazards: No Pets and animals: No Leisure activites: music and other Leisure activities details: remodeling Sexually active: No Do you think of yourself as: Straight/Heterosexual Current gender identity: Male Francine/Tenriism: Gnosticist Special francine needs: No Agree to transfusion: Yes Financial difficulty paying for basics: Very Hard Physical Exam Const: COMMON NORMALS: alert HENMT: COMMON NORMALS: normocephalic HEAD & SCALP: normocephalic Neck/C-Spine: COMMON NORMALS: full ROM Chest: COMMONS NORMALS: normal inspection of the chest and normal palpation of entire chest wall Resp: COMMON NORMALS: normal respiratory effort and clear to auscultation bilaterally AUSCULTATION: clear to auscultation bilaterally Cardio: COMMON NORMALS: regular rate and regular rhythm RATE: regular rate RHYTHM: regular rhythm GI: COMMON NORMALS: Soft to palpation and non-tender PALPATION: Yes Soft to palpation Back/Pelvis: COMMON NORMALS: thoracic and lumbar spine normal to inspection THORACIC SPINE/UPPER BACK: No thoracic spinal tenderness LUMBAR SPINE/LOWER BACK: No lumbar spinal tenderness Extremity: COMMON NORMALS: normal to inspection and full ROM RIGHT UPPER EXTREMITY: Yes shoulder joint (Lateral tenderness, no significant swelling or dislocation noted) Neuro: SENSORIUM/ORIENTATION: Yes alert Skin: TRAUMA: abrasion (Right elbow, right hip, right knee) Course Vital Signs: Vital signs: Vital Signs Temperature 97.9 F 07/01/23 17:55 Pulse Rate 77 07/01/23 17:55 Respiratory Rate 16 07/01/23 17:55 Blood Pressure 141/86 07/01/23 17:55 Pulse Oximetry 96 07/01/23 17:55 Oxygen Delivery Me thod Room Air 07/01/23 17:55 MDM - Fall Medical Decision Making 52-year-old male patient comes in today for complaints of injuries secondary to a fall from a roof. Patient reports the fall was approximately 8 to 10 feet. On exam patient has some tenderness noted to the right lateral shoulder but normal passive range of motion. Good manager fund strength. Normal sensation and cap refill distally. Abdomen soft nontender. Chest wall is nontender. No spinal tenderness is noted on palpation. Patient moves all extremities except right shoulder. Patient has some abrasions first to the right elbow, right hip and right knee. Reviewed exam with patient with recommendations for treatment and follow-up. Patient does have a history of rotator cuff tear to the left shoulder. Recommend follow-up with primary care or orthopedist for further evaluation. X-ray of the shoulder was unremarkable. Differential diagnoses included fracture, contusions, abrasions. Patient reported understanding of care plans and need for follow-up or return to the ER. Lab Data Radiology Impressions Shoulder X-Ray 07/01/23 17:43 IMPRESSION: No acute findings. All radiology interpretation(s) finalized by discharge Discharge Plan Discharge Patient Disposition: Home Clinical Impression: Abrasion, multiple sites Shoulder contusion Qualifiers: Encounter type: initial encounter Laterality: right Qualified Code(s): S40.011A - Contusion of right shoulder, initial encounter Fall Qualifiers: Encounter type: initial encounter Qualified Code(s): W19.XXXA - Unspecified fall, initial encounter Condition: Stable Prescriptions: New hydrocodone-acetaminophen 5-325 mg tablet 1 tab PO Q8H PRN (Reason: pain (scale score 7-10)) Qty: 10 0RF No Action gabapentin 600 mg tablet 600 mg PO TID 30 Days Qty: 90 3RF clonazepam [Klonopin] 1 mg tablet 1 mg PO TID PRN (Reason: walking) atenolol 100 mg tablet 100 mg PO .morning (DME) mikhail brace See Rx Instructions .Route .MEDSUPPLY Qty: 1 0RF Rx Instructions: As directed pantoprazole [Protonix] 40 mg tablet,delayed release (DR/EC) 40 mg PO .morning sertraline 100 mg Tablet 200 mg PO DAILY 30 Days Qty: 60 1RF quetiapine 100 mg Tablet 100 mg PO BEDTIME 30 Days Qty: 30 1RF quetiapine 300 mg tablet 300 mg PO BEDTIME 30 Days Qty: 30 1RF Discharge Orders: Discharge ED (Routine); Ordered 07/01/23 Ordered By: Aidan Osborne Referrals: Familia Khan MD [Primary Care Provider] - Discharge Diet: Usual diet Discharge Activity: Increase activity as tolerated Patient Instructions: Shoulder Pain (ED) Activity Restrictions/Additional Instructions: Try to maintain normal activity is much as possible. No heavy lifting or straining. Drink plenty of water and fluids. Gentle stretching and range of motion exercises. Use acetaminophen to help control pain. Use hydrocodone for severe pain. Follow-up with primary care as needed. Return to ER for new concerns. Coding Level of Care Code ED Adult Services Librarian for Ab Suarez
[2023-07-01] MEDS: bacitracin ointment Pkt 1 EACH TOPICAL (19:14)
[2023-07-01] MEDS: HYDROcodone-acetaminophen 5-325 mg Tablet 1 TAB PO (19:19)
[2023-07-01 19:21] VITALS: BP 141/86; PULSE 77; RESP 16; TEMP 36.6; O2SAT 96
== END 2023-07-01 19:22 | disposition home or self-care (01) ==
PROVIDERS: Emergency Provider Nurse Practitioner Family; PCP Internal Medicine Cardiovascular Disease
DX: S40.011A Contusion of right shoulder, initial encounter (principal); S50.311A Abrasion of right elbow, initial encounter; S70.211A Abrasion, right hip, initial encounter; S80.211A Abrasion, right knee, initial encounter; F17.210 Nicotine dependence, cigarettes, uncomplicated; W13.2XXA Fall from, out of or through roof, initial encounter
CPT/HCPCS: 73030; 99283

== ENCOUNTER 2023-07-09 14:36 | Inpatient (IN) | payer MEDICAID, SELFPAY ==
[2023-05-07 16:34] VITALS: BP 140/81; BMI 23.1
[2023-07-09 14:43] VITALS: BP 141/95; PULSE 81; RESP 18; TEMP 36.8; O2SAT 96; BMI 23.3
[2023-07-09 14:57] LABS: Add Urine Microscopic? NO; Charge for UA Resulting for Rev
[2023-07-09 15:04] LABS: Bilirubin Urine Neg (Negative); Blood Urine Neg (Negative); Glucose Urine UA Norm (Normal); Ketones Urine Negative (Negative); Leukocyte Esterase Urine Negative (Negative); Nitrate Urine Negative (Negative); Protein Urine Neg (Negative); Urine Appearance Clear (CLEAR); Urine Color Colorless (Yellow); Urobilinogen Urine Norm (Negative); pH Urine 6 (5-7)
[2023-07-09 15:07] LABS: Basophils # 0.1 10^3/uL (0.0-0.1); Basophils % 0.8 %; Eosinophils # 0.1 10^3/uL (0.0-0.8); Eosinophils % 0.6 %; Hematocrit 47.8 % (37-53); Lymphocytes # 2.9 10^3/uL (0.8-4.8); Mean Corpuscular HGB Conc 36.2 g/dL (30-55); Mean Corpuscular Hemoglobin 36.2 pg (27-33); Mean Platelet Volume 8.5 fL (7.4-10.4); Monocytes % 8.7 %; Neutrophils % 64.1 %; Nucleated Red Blood Cells % 0 %; Platelet Count 232 10^3/cmm (157-399); Red Blood Count 4.78 10^6/uL (3.85-5.65); Red Cell Distribution Width 13.2 % (12.1-15.1); White Blood Count 11.53 10^3/uL (3.29-11.43)
[2023-07-09 15:13] LABS: Amphetamines Screen Urine Negative (Negative); Barbiturates Screen Urine Negative (Negative); Benzodiazepines Screen Urine Negative (Negative); Cocaine Screen Urine Negative (Negative); Opiate Screen Urine Negative (Negative); PCP Screen Urine Negative (Negative); THC Screen Urine Negative (Negative)
[2023-07-09 15:18] LABS: Alanine Aminotransferase 18 U/L (0-41); Albumin Level 4.8 g/dL (3.5-5.2); Alcohol Level 263 mg/dL (0-10); Alkaline Phosphatase 144 U/L (40-130); Anion Gap 14.9 (5-19); Aspartate Amino Transferase 17 U/L (0-40); Blood Urea Nitrogen 11 mg/dL (6-20); Calcium 9.3 mg/dL (8.5-10.5); Carbon Dioxide 27 mmol/L (22-29); Chloride 105 mmol/L (98-107); Globulin 2.8 g/dL (1.3-4.6); Glomerular Filtration Rate 118.4 mL/min (90-130); Glucose 116 mg/dL (65-115); Osmolality Calculated 296 mOsm/kg (285-295); Potassium 3.9 mmol/L (3.5-5.1); Sodium 143 mmol/L (136-145); Total Bilirubin 0.3 mg/dL (0.15-1.2); Total Protein 7.6 g/dL (6.6-8.7)
[2023-07-09 15:19] LABS: Acetaminophen < 5.0 ug/mL (10-30); Salicylate < 0.3 mg/dL (3-10)
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
[2023-07-09 20:47] VITALS: BP 130/88; PULSE 70; RESP 18; TEMP 36.8; O2SAT 94
[2023-07-09] MEDS: trazodone 50 mg Tablet PO ×2 (21:31→22:35)
[2023-07-09] MEDS: hyDROXYzine 25 mg Capsule 50 MG PO (21:31)
[2023-07-10 06:00] VITALS: BP 123/75; PULSE 69; RESP 18; TEMP 37.1; O2SAT 95
[2023-07-10] MEDS: multivitamin therapeutic Tablet 1 TAB PO (08:46)
[2023-07-10] MEDS: thiamine 100 mg Tablet PO (08:46)
[2023-07-10] MEDS: folic acid 1 mg Tablet PO (08:46)
[2023-07-10] MEDS: LORazepam 2 mg Tablet PO (11:34)
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
[2023-07-10] MEDS: atenolol 50 mg Tablet 100 MG PO (13:01)
[2023-07-10] MEDS: sertraline 100 mg Tablet 200 MG PO (13:01)
[2023-07-10] MEDS: pantoprazole DR 40 mg Tablet PO (13:01)
[2023-07-10 14:00] VITALS: BP 142/91; PULSE 81; RESP 16; TEMP 36.8; O2SAT 93
[2023-07-10] MEDS: gabapentin 300 mg Capsule 600 MG PO ×2 (15:00→19:45)
[2023-07-10] MEDS: hyDROXYzine 25 mg Capsule 50 MG PO (19:49)
[2023-07-10] MEDS: quetiapine 100 mg Tablet PO (19:51)
[2023-07-10] MEDS: CLONazepam 1 mg Tablet PO (19:51)
[2023-07-10 20:24] VITALS: BP 175/84; PULSE 51; RESP 18; TEMP 36.7; O2SAT 97
[2023-07-11 06:00] VITALS: BP 129/71; PULSE 73; RESP 16; TEMP 36.7; O2SAT 95
[2023-07-11] MEDS: pantoprazole DR 40 mg Tablet PO (06:36)
[2023-07-11] MEDS: atenolol 50 mg Tablet 100 MG PO (06:36)
[2023-07-11] MEDS: gabapentin 300 mg Capsule 600 MG PO (07:50)
[2023-07-11] MEDS: multivitamin therapeutic Tablet 1 TAB PO (07:50)
[2023-07-11] MEDS: sertraline 100 mg Tablet 200 MG PO (07:50)
[2023-07-11] MEDS: folic acid 1 mg Tablet PO (07:50)
[2023-07-11] MEDS: thiamine 100 mg Tablet PO (07:51)
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
[2023-07-11 13:52] VITALS: BP 129/71; PULSE 73; RESP 16; TEMP 36.7; O2SAT 95
[2023-07-11 14:00] VITALS: BP 151/79; PULSE 60; RESP 15; TEMP 36.6; O2SAT 97
--- NOTE | 2023-07-11 14:30 | PC.NURSE ---
written discharge instruction discussed and left with patient. pt stated understanding and compliance. pt recieved medication from pharmacy. pt left with car tender.
== END 2023-07-11 14:39 | disposition home or self-care (01) | DRG 882 ==
LOC: ER 15:44 → NP 16:12
PROVIDERS: Admitting Provider Psychiatry & Neurology Psychiatry; Emergency Provider Emergency Medicine; PCP Internal Medicine Cardiovascular Disease; Visit Provider Psychiatry & Neurology Psychiatry
DX: F43.12 Post-traumatic stress disorder, chronic (principal); R45.850 Homicidal ideations; F10.20 Alcohol dependence, uncomplicated; Z91.410 Personal history of adult physical and sexual abuse; F32.A Depression, unspecified; Z91.148 Patient's other noncompliance with medication regimen for other reason
CPT/HCPCS: 36415; 80053; 80306; 80307; 81003; 85025; 97150; 97165; 99285

== ENCOUNTER 2023-07-24 06:00 | Outpatient (CLI) | payer MEDICAID, SELFPAY ==
[2023-07-15 13:53] VITALS: BP 140/81; BMI 23.1
== END 2023-07-24 23:59 | disposition home or self-care (01) ==
LOC: SPT 09-25 14:05
PROVIDERS: PCP Internal Medicine Cardiovascular Disease; Visit Provider Physician Assistant
DX: Z46.89 Encounter for fitting and adjustment of other specified devices (principal); M54.2 Cervicalgia
CPT/HCPCS: L0172

== ENCOUNTER → 2023-07-24 10:49 | Outpatient (BNVA) | payer MEDICAID, SELFPAY ==
[2023-07-15 13:53] VITALS: BP 140/81; BMI 23.1
== END ==
PROVIDERS: PCP Internal Medicine Cardiovascular Disease; Visit Provider Physician Assistant
DX: M47.816 Spondylosis without myelopathy or radiculopathy, lumbar region (principal); M54.2 Cervicalgia
CPT/HCPCS: 72050; 72110

== ENCOUNTER 2023-07-28 14:23 | Outpatient (CLI) | payer MEDICAID, SELFPAY ==
[2023-07-15 13:53] VITALS: BP 140/81; BMI 23.1
--- NOTE | 2023-07-28 14:30 | MR_ITS ---
WS: [id number] MRI CERVICAL SPINE NONCONTRAST TECHNIQUE: Sagittal T1, T2 and STIR imaging. Axial T2, gradient, and fiesta imaging. CLINICAL INFORMATION: neck pain COMPARISON: None. FINDINGS: Normal cervical alignment. No high-grade central canal narrowing. Cord signal is normal. C2-C3: Mild facet arthropathy. Spinal canal and foramina are patent. C3-C4: Mild disc osteophytic ridging. Mild facet arthropathy. Mild RIGHT greater than LEFT foraminal narrowing. C4-C5: Mild facet arthropathy. Mild bilateral bony foraminal narrowing. Spinal canal is patent. C5-C6: Mild disc osteophyte complex with endplate ridging. Mild to moderate LEFT and mild RIGHT bony foraminal narrowing. Mild facet arthropathy. C6-C7: Mild disc osteophytic ridging. Mild LEFT greater than RIGHT bony foraminal narrowing. Spinal c anal is patent. C7-T1: Normal. Visualized brain stem structures: Normal. Prevertebral soft tissues: Normal. IMPRESSION: 1. Normal cervical alignment. Cord signal is normal. 2. Mild to moderate bony foraminal narrowing worse at LEFT C5-6 and LEFT C6-7. 3. Minimal disc bulging C5-C6 and C6-C7.
== END 2023-07-28 14:24 | disposition home or self-care (01) ==
LOC: RAD 14:24
PROVIDERS: PCP Internal Medicine Cardiovascular Disease; Visit Provider Physician Assistant
DX: M48.02 Spinal stenosis, cervical region (principal); M50.322 Other cervical disc degeneration at C5-C6 level
CPT/HCPCS: 72141

== ENCOUNTER 2024-04-24 13:55 | Emergency (ER) | payer SELFPAY ==
[2023-07-15 13:53] VITALS: BP 140/81; BMI 23.1
[2024-04-24 14:01] VITALS: BP 128/81; PULSE 93; RESP 17; TEMP 36.9; O2SAT 95; BMI 26.5
--- NOTE | 2024-04-24 14:25 | XRR_ITS ---
PROCEDURE INFORMATION: Exam: XR Right Ankle Exam date and time: 04/24/2024 2:49 PM Age: 53 years old Clinical indication: Injury or trauma; Fall; Blunt trauma; Ankle; Right; Additional info: Pain/injury due to fall TECHNIQUE: Imaging protocol: Radiologic exam of the right ankle. Views: 3 or more views. COMPARISON: CR XR knee RT 3V* [id number] 01/31/2022 1:29 PM FINDINGS: Bones/joints: There are minimally displaced oblique fractures through the distal fibula with adjacent soft tissue hematoma. There is a tibiotalar joint effusion. Soft tissues: 1.6 mm ossified density in the soft tissues distal to the anterior aspect of the distal tibia may represent an avulsion fracture versus soft tissue ossification. XR/XR ankle RT min 3V* [id number] IMPRESSION: 1. There are minimally displaced oblique fractures through the distal fibula with adjacent soft tissue hematoma. 2. 1.6 mm ossified density in the soft tissues distal to the anterior aspect of the distal tibia may represent an avulsion fracture versus soft tissue ossification. 3. There is a tibiotalar joint effusion.
--- NOTE | 2024-04-24 14:37 | ED_ITS ---
HPI - Extremity Problem General: Chief complaint: Extremity Injury, Lower Stated complaint: fall, right ankle pain Time Seen by Provider: 04/24/24 14:08 History of Present Illness: 53-year-old male presents emerged depart ment chief complaint of twisting his right ankle prior to arrival reports moderate pain movement of the ankle since the injury he does not endorse any prior history of any trauma or injury noted to the ankle previously he reports during the fall he tripped twisted his ankle reports did not strike his head or having LOC in which reports any other associated symptoms. Associated symptoms: Deny chest pain, fever(s) or rash Review of Systems General: Reports: 10 or more systems reviewed and unremarkable except in HPI and below Const: Denies: fever(s), chills, fatigue or malaise Eyes: Denies: change in vision or blurry vision Card: Denies: chest pain or palpitations Resp: Denies: dyspnea or productive cough GI: Denies: abdominal pain, nausea or vomiting : Denies: flank pain Musc: Reports: extremity pain, extremity swelling, joint pain and joint swelling Skin/Breast: Denies: rash or pruritus Neuro: Denies: headache(s) Psych: Denies: anxiety or depression Prince/Lymph: Denies: easy bleeding All/Imm: Denies: urticaria, throat swelling or facial swelling PFSH ED PFSH: Medical History Cigarette nicotine dependence Alcohol dependence, binge pattern Post-traumatic stress disorder, chronic Chronic back pain Psychiatric care Family History Other Arthritis Post-traumatic stress disorder, chronic Social History Smoking and tobacco/nicotine status: current every day tobacco/nicotine user cigarettes Packs smoked per day: 0.5 Years cigarettes smoked: 26 Quit status (tobacco/nicotine): has tried quititng Number of times tried to quit tobacco: 2 Second hand smoke exposure: Yes Alcohol intake: current Alcohol intake frequency: few times a week Alcohol type: beer and hard liquor Substance/Drug Use: former Date of last use: early 20's Adopted: No Caregiver/support person: No Lives independently: No Household members: friend(s) Housing: House Marital status: Number of children: 1 Number of grandchildren: 0 Highest education level completed: High School Graduate service: Yes 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 branch: [employer] Assignments: Inside [facility] Known or Potential Exposure: None Current occupational status: unemployed Current occupational exposures/hazards: No Pets and animals: No Leisure activites: music and other Leisure activities details: remodeling Sexually active: No Do you think of yourself as: Straight/Heterosexual Current gender identity: Male Francine/Hindu: Denominational Special francine needs: No Agree to transfusion: Yes Physical Exam Narrative: EXAM NARRATIVE: moderate swelling noted to lateral malleolus reduced range of motion due to pain neurovascularly Const: COMMON NORMALS: patient oriented x3 and healthy appearing; apparent distress (In mild distress due to pain) HENMT: COMMON NORMALS: normocephalic and atraumatic HEAD & SCALP: normocephalic and atraumatic Eye: COMMON NORMALS: Equal, round and reactive pupils present and EOMs intact bilaterally PUPIL: Yes Equal, round and reactive pupils present Neck/C-Spine: COMMON NORMALS: full ROM, supple and no JVD Lymph: LYMPHATIC: no lymphadenopathy noted Chest: COMMONS NORMALS: normal inspection of the chest and normal palpation of entire chest wall Resp: COMMON NORMALS: normal respiratory effort, No retractions and clear to auscultation bilaterally EFFORT & INSPECTION: Yes able to speak in complete sentences and Yes symmetric chest movement AUSCULTATION: clear to auscultation bilaterally Cardio: COMMON NORMALS: no JVD, regular rate and regular rhythm RATE: regular rate RHYTHM: regular rhythm GI: COMMON NORMALS: Normal to inspection, nondistended, normoactive bowel sounds present, Soft to palpation and non-tender INSPECTION: Yes normal to inspection PALPATION: Yes Soft to palpation : COMMON NORMALS: Yes no CVA tenderness BLADDER/KIDNEY EXAM: Yes no CVA tenderness Back/Pelvis: COMMON NORMALS: no CVA tenderness Extremity: COMMON NORMALS: negative for normal to inspection, negative for full ROM and negative for no joint enlargement Neuro: COMMON NORMALS: patient oriented x3, CN's II-XII intact bilaterally, moves all extremities and no focal motor deficits Psych: COMMON NORMALS: mental status grossly normal, Normal thought process present, cooperative and normal affect THOUGHT PROCESS: Normal thought process present Skin: COMMON NORMALS: no rashes or lesions noted GENERAL SKIN EXAM: no rashes or lesions noted Course Vital Signs: Vital signs: Vital Signs Temperature 98.4 F 04/24/24 14:01 Pulse Rate 93 04/24/24 14:01 Respiratory Rate 17 04/24/24 14:01 Blood Pressure 128/81 04/24/24 14:01 Pulse Oximetry 95 04/24/24 14:01 Oxygen Delivery Me thod Room Air 04/24/24 14:01 MDM - Extremity (Nontraumatic) Medical Decision Making x-ray imaging was obtained of the right ankle revealing a lateral malleolus fracture nondisplaced patient was placed into a stirrup splint OCL crutches advised further follow-up with primary care. patient will be placed on some hydrocodone for breakthrough pain control advised further follow-up primary care in 3 to 5 days in which patient should resume weightbearing in 3 days in which to return the interim if any of his symptoms persist or worsen. Lab Data Radiology Impressions Ankle X-Ray 04/24/24 14:25 IMPRESSION: 1. There are minimally displaced oblique fractures through the distal fibula with adjacent soft tissue hematoma. 2. 1.6 mm ossified density in the soft tissues distal to the anterior aspect of the distal tibia may represent an avulsion fracture versus soft tissue ossification. 3. There is a tibiotalar joint effusion. All radiology interpretation(s) finalized by discharge Discharge Plan Discharge Patient Disposition: Home Clinical Impression: Closed fibular fracture Qualifiers: Encounter type: initial encounter Fibula location: lateral malleolus Fracture alignment: nondisplaced Laterality: right Qualified Code(s): S82.64XA - Nondisplaced fracture of lateral malleolus of right fibula, initial encounter for closed fracture Fall from standing Qualifiers: Encounter type: initial encounter Qualified Code(s): W19.XXXA - Unspecified fall, initial encounter Condition: Stable Prescriptions: New hydrocodone-acetaminophen 5-325 mg tablet 1 tab PO QID PRN (Reason: pain) Qty: 14 0RF No Action gabapentin 600 mg tablet 600 mg PO TID 30 Days Qty: 90 3RF clonazepam [Klonopin] 1 mg tablet 1 mg PO TID PRN (Reason: Anxiety) atenolol 100 mg tablet 100 mg PO QAM (DME) soft cervical collar See Rx Instructions .Route .MEDSUPPLY Qty: 1 0RF Rx Instructions: As directed sertraline 100 mg tablet 200 mg PO .morning 30 Days Qty: 60 3RF Rx Instructions: Take two tablets every morning quetiapine 400 mg tablet 400 mg PO .8 pm Qty: 30 3RF Rx Instructions: Take one tablet at 8 pm (DME) mikhail brace See Rx Instructions .Route .MEDSUPPLY Qty: 1 0RF Rx Instructions: As directed pantoprazole [Protonix] 40 mg tablet,delayed release (DR/EC) 40 mg PO QAM varenicline 1 mg tablet 1 mg PO BID Vitamin B-1 (mononitrate) 100 mg Tablet 100 mg PO DAILY 30 Days Qty: 30 1RF Discharge Orders: Discharge ED (Routine); Ordered 04/24/24 Ordered By: Hu Burger Referrals: Familia Khan MD [Primary Care Provider] - Discharge Diet: Regular Discharge Activity: Use walker/crutches as instructed Patient Instructions: Ankle Fracture (ED), Opioid Safety, Pain Management Activity Restrictions/Additional Instructions: It is recommended to be nonweightbearing for the next 3 days using the crutches and the splint almost at all times even but covered ice packs to the affected area to reduce swelling please take medications as prescribed at the end of the week as recommended further follow-up with primary care to see if you would require MRI imaging for you obvious tendon or ligamentous injury extent please return the interim if any of your symptoms persist or worse. Coding Level of Care Code ED Solid Propellant Processor for Ab Suarez
[2024-04-24] MEDS: HYDROcodone-acetaminophen 5-325 mg Tablet 1 TAB PO (15:26)
== END 2024-04-24 16:23 | disposition home or self-care (01) ==
PROVIDERS: Emergency Provider Emergency Medicine; PCP Internal Medicine Cardiovascular Disease
DX: S82.64XA Nondisplaced fracture of lateral malleolus of right fibula, initial encounter for closed fracture (principal); F17.210 Nicotine dependence, cigarettes, uncomplicated; X50.1XXA Overexertion from prolonged static or awkward postures, initial encounter
CPT/HCPCS: 29515; 73610; 99283; E0114

== ENCOUNTER 2024-04-28 16:47 | Emergency (ER) | payer SELFPAY ==
[2023-07-15 13:53] VITALS: BP 140/81; BMI 23.1
--- NOTE | 2024-04-28 16:48 | XRR_ITS ---
PROCEDURE INFORMATION: Exam: XR Right Ankle Exam date and time: 04/28/2024 5:06 PM Age: 53 years old Clinical indication: Injury or trauma; Fall; Blunt trauma; Ankle and foot; Right TECHNIQUE: Imaging protocol: Radiologic exam of the right ankle. Views: 3 or more views. COMPARISON: CR (LOW EX, ) 04/24/2024 2:49 PM FINDINGS: Bones/joints: There is an acute longitudinal oblique nondisplaced fracture involving the lateral malleolus. No other fracture noted. The fracture has not changed over the past 4 days. Soft tissues: Normal. XR/XR ankle RT min 3V* [id number] IMPRESSION: Stable fracture of the lateral malleolus
--- NOTE | 2024-04-28 16:48 | XRR_ITS ---
PROCEDURE INFORMATION: Exam: XR Right Foot Exam date and time: 04/28/2024 5:01 PM Age: 53 years old Clinical indication: Injury or trauma; Fall; Blunt trauma; Ankle and foot; Right TECHNIQUE: Imaging protocol: Radiologic exam of the right foot. Views: 3 or more views. COMPARISON: CR (LOW EXM, ) 04/24/2024 2:49 PM FINDINGS: Bones/joints: There is an acute longitudinal oblique, nondisplaced fracture involving the lateral malleolus. No other fracture noted. Soft tissues: Soft tissue swelling involves the forefoot. XR/XR foot RT min 3V* [id number] IMPRESSION: 1. Acute fracture of the lateral malleolus 2. Soft tissue swelling of the forefoot without fracture
[2024-04-28 16:55] VITALS: BP 127/70; PULSE 113; RESP 20; TEMP 37.3; O2SAT 95
--- NOTE | 2024-04-28 17:37 | ED_ITS ---
HPI - Extremity Problem General: Chief complaint: Extremity Injury, Lower Stated complaint: right foot injury Time Seen by Provider: 04/28/24 17:20 Source: patient Mode of arrival: ambulatory Limitations: no limitations History of Present Illness: 53-year-old male states that he had frac tured his ankle last week he had been seen here he states that he is post follow-up with PCP of his PCP is out of the office for the rest of the month and states he is having pain and has no pain medication and wanted orthopedic follow-up. Denies any new injuries rates his pain a 5 out of 10 currently his pain is in his right ankle. Associated symptoms: Deny chest pain, fever(s) or rash Review of Systems Const: Denies: fever(s), chills, body aches or change in appetite ENMT: Denies: throat pain or dental pain Card: Denies: chest pain Resp: Denies: dyspnea GI: Denies: abdominal pain, nausea, vomiting or diarrhea Musc: Reports: extremity pain; Denies: neck pain or back pain Skin/Breast: Denies: rash Neuro: Denies: headache(s) PFSH ED PFSH: Medical History Cigarette nicotine dependence Alcohol dependence, binge pattern Post-traumatic stress disorder, chronic Chronic back pain Psychiatric care Family History Other Arthritis Post-traumatic stress disorder, chronic Social History Smoking and tobacco/nicotine status: current every day tobacco/nicotine user cigarettes Packs smoked per day: 0.5 Years cigarettes smoked: 26 Quit status (tobacco/nicotine): has tried quititng Number of times tried to quit tobacco: 2 Second hand smoke exposure: Yes Alcohol intake: current Alcohol intake frequency: few times a week Alcohol type: beer and hard liquor Substance/Drug Use: former Date of last use: early Adopted: No Caregiver/support person: No Lives independently: No Household members: friend(s) Housing: House Marital status: Number of children: 1 Number of grandchildren: 0 Highest education level completed: High School Graduate service: Yes 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 ([facility]) Known or Potential Exposure: None Current occupational status: unemployed Current occupational exposures/hazards: No Pets and animals: No Leisure activites: music and other Leisure activities details: remodeling Sexually active: No Do you think of yourself as: Straight/Heterosexual Current gender identity: Male Francine/Pentecostal: Holiness Special francine needs: No Agree to transfusion: Yes Physical Exam Const: COMMON NORMALS: no acute distress, patient oriented x3 and healthy appearing HENMT: COMMON NORMALS: normocephalic and atraumatic HEAD & SCALP: normocephalic and atraumatic Neck/C-Spine: COMMON NORMALS: full ROM and supple Chest: COMMONS NORMALS: normal inspection of the chest Resp: COMMON NORMALS: normal respiratory effort Extremity: NARRATIVE EXTREMITY EXAM: Did take his plan off tenderness over the lateral malleolus no cellulitis Neuro: COMMON NORMALS: patient oriented x3, moves all extremities and no focal motor deficits Psych: COMMON NORMALS: mental status grossly normal, Normal thought process present and cooperative THOUGHT PROCESS: Normal thought process present Skin: COMMON NORMALS: no rashes or lesions noted and no wounds GENERAL SKIN EXAM: no rashes or lesions noted Course Vital Signs: Vital signs: Vital Signs Temperature 99.2 F 04/28/24 16:55 Pulse Rate 113 H 04/28/24 16:55 Respiratory Rate 20 H 04/28/24 16:55 Blood Pressure 127/70 04/28/24 16:55 Pulse Oximetry 95 04/28/24 16:55 Oxygen Delivery Me thod Room Air 04/28/24 16:55 MDM - Extremity (Nontraumatic) Medical Decision Making Patient presents here with ankle fracture did take his splint off and placed a new splint on we will get him podiatry follow-up will prescribe pain meds. Medical Records I reviewed the patient's medical records. Lab Data Radiology Impressions Ankle X-Ray 04/28/24 16:48 IMPRESSION: Stable fracture of the lateral malleolus Foot X-Ray 04/28/24 16:48 IMPRESSION: 1. Acute fracture of the lateral malleolus 2. Soft tissue swelling of the forefoot without fracture All radiology interpretation(s) finalized by discharge Discharge Plan Discharge Patient Disposition: Home Clinical Impression: Closed fibular fracture Qualifiers: Encounter type: subsequent encounter Fibula location: lateral malleolus Fracture alignment: nondisplaced Laterality: right Condition: Stable Prescriptions: New hydrocodone-acetaminophen 5-325 mg tablet 1 tab PO Q6H PRN (Reason: pain) Qty: 14 0RF No Action gabapentin 600 mg tablet 600 mg PO TID 30 Days Qty: 90 3RF clonazepam [Klonopin] 1 mg tablet 1 mg PO TID PRN (Reason: Anxiety) atenolol 100 mg tablet 100 mg PO QAM (DME) soft cervical collar See Rx Instructions .Route .MEDSUPPLY Qty: 1 0RF Rx Instructions: As directed sertraline 100 mg tablet 200 mg PO .morning 30 Days Qty: 60 3RF Rx Instructions: Take two tablets every morning quetiapine 400 mg tablet 400 mg PO .8 pm Qty: 30 3RF Rx Instructions: Take one tablet at 8 pm (DME) mikhail brace See Rx Instructions .Route .MEDSUPPLY Qty: 1 0RF Rx Instructions: As directed pantoprazole [Protonix] 40 mg tablet,delayed release (DR/EC) 40 mg PO QAM varenicline 1 mg tablet 1 mg PO BID Vitamin B-1 (mononitrate) 100 mg Tablet 100 mg PO DAILY 30 Days Qty: 30 1RF hydrocodone-acetaminophen 5-325 mg tablet 1 tab PO QID PRN (Reason: pain) Qty: 14 0RF Discharge Orders: Discharge ED (Routine); Ordered 04/28/24 Ordered By: William Allred Referrals: Florentino Huber DPM [Physician] - 1-3 days Familia Khan MD [Primary Care Provider] - Discharge Diet: Advance as tolerated Discharge Activity: Resume usual activity Patient Instructions: Ankle Fracture (ED), Opioid Safety Coding Level of Care Code ED Carpenter'S Assistant for Ab Suarez
[2024-04-28] MEDS: HYDROcodone-acetaminophen 7.5-325 mg Tablet 1 TAB PO (18:11)
--- NOTE | 2024-04-29 07:03 | DCPLANNER ---
messaged podiatry for er f/u
== END 2024-04-28 18:41 | disposition home or self-care (01) ==
PROVIDERS: Emergency Provider Emergency Medicine; PCP Internal Medicine Cardiovascular Disease
DX: S82.64XA Nondisplaced fracture of lateral malleolus of right fibula, initial encounter for closed fracture (principal); F17.210 Nicotine dependence, cigarettes, uncomplicated; X58.XXXA Exposure to other specified factors, initial encounter
CPT/HCPCS: 73610; 73630; 99283

== ENCOUNTER 2024-05-24 14:52 | Emergency (ER) | payer SELFPAY ==
[2023-07-15 13:53] VITALS: BP 140/81; BMI 23.1
[2024-05-24 14:57] VITALS: BP 170/108; PULSE 114; O2SAT 99
--- NOTE | 2024-05-24 15:13 | W.ED.EXTPRO ---
HPI - Extremity Problem General: Chief complaint: Extremity Injury, Lower Stated complaint: right foot and ankle pain Time Seen by Provider: 05/24/24 14:57 Source: patient Mode of arrival: ambulatory Limitations: no limitations History of Present Illness: Patient is a 53-year-old male here for complaints of pain and needing a splint re-applied to his right lower extremity. Patient was seen here in our emergency department approximately a month ago (04/24) following an injury to the right ankle. He was diagnosed with a distal fibular fracture. He followed up with podiatry/Dr. Huber on 04/30 and had the extremity immobilized with directions for nonweightbearing with crutches. Patient states following casting he felt like this was too tight so he ended up removing the cast himself. Patient states he has not been able to follow-up with Dr. Huber due to a lapse in his insurance and not being able to afford the co-pay. He arrives here ambulatory on the leg without his crutches. Patient arrives hypertensive. He states he ran out of his blood pressure medications 2 days ago. He states he has a refill waiting for him at the pharmacy that he plans on getting after discharge. MD Complaint: extremity pain Onset (ago): week(s) Pain Consistency: constant Location: right and lower extremity Radiation: none Relieving factors: nothing Exacerbating factors: weight bearing and walking Associated symptoms: Reports no associated symptoms; Deny chest pain or fever(s) Related Data Home Medications Medication Instructions Recorded Confirmed atenolol 100 mg tablet 100 mg PO QAM 02/07/23 04/30/24 clonazepam 1 mg tablet (Klonopin) 1 mg PO TID PRN Anxiety 02/07/23 04/30/24 pantoprazole 40 mg tablet,delayed 40 mg PO QAM 02/07/23 04/30/24 release (Protonix) varenicline 1 mg tablet 1 mg PO BID 07/09/23 04/30/24 Previous Rx's Medication Instructions Recorded gabapentin 600 mg tablet 600 mg PO TID 30 days #90 tabs 11/14/21 mikhail brace #1 ea 11/12/22 thiamine mononitrate (vit B1) 100 100 mg PO DAILY 30 days #30 tabs 07/11/23 mg tablet (Vitamin B-1 (mononitrate)) soft cervical collar #1 ea 07/24/23 quetiapine 400 mg tablet 400 mg PO .8 pm #30 tabs 08/19/23 sertraline 100 mg tablet 200 mg (2 x 100 mg) PO .morning 30 08/19/23 days #60 tabs tramadol 50 mg tablet 50 mg PO Q6H PRN pain #10 tabs 05/24/24 Allergies Allergy/AdvReac Type Severity Reaction Status Date / Time aspirin Allergy ADR-Nose Verified 05/24/24 15:02 Bleed Review of Systems Const: Denies: fever(s) Card: Denies: chest pain, palpitations or lightheadedness Resp: Denies: dyspnea GI: Denies: abdominal pain Musc: Reports: joint pain (R ankle) Neuro: Denies: numbness in extremities, weakness in extremities, sensory changes or difficulty walking PFSH ED PFSH: Medical History Cigarette nicotine dependence Alcohol dependence, binge pattern Post-traumatic stress disorder, chronic Chronic back pain Psychiatric care Family History Other Arthritis Post-traumatic stress disorder, chronic Social History Smoking and tobacco/nicotine status: current every day tobacco/nicotine user cigarettes Packs smoked per day: 0.5 Years cigarettes smoked: 26 Quit status (tobacco/nicotine): has tried quititng Number of times tried to quit tobacco: 2 Second hand smoke exposure: Yes Alcohol intake: current Alcohol intake frequency: few times a week Alcohol type: beer and hard liquor Substance/Drug Use: former Date of last use: early 20's Adopted: No Caregiver/support person: No Lives independently: No Household members: friend(s) Housing: House Marital status: Number of children: 1 Number of grandchildren: 0 Highest education level completed: High School Graduate service: Yes 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 branch: [employer] Assignments: Inside [facility] ([employer]) Known or Potential Exposure: None Current occupational status: unemployed Current occupational exposures/hazards: No Pets and animals: No Leisure activites: music and other Leisure activities details: remodeling Sexually active: No Do you think of yourself as: Straight/Heterosexual Current gender identity: Male Francine/Mandaen: Scientology Special francine needs: No Agree to transfusion: Yes Physical Exam Const: COMMON NORMALS: no acute distress, average body habitus, healthy appearing, alert and well nourished GENERAL APPEARANCE: cooperative ORIENTATION/CONSCIOUSNESS: Yes awake, Yes oriented to person, Yes oriented to place and Yes oriented to time Extremity: RIGHT LOWER EXTREMITY: Yes foot & digits (TTP) Right ankle: Yes neurovascular exam (normal) Neuro: COMMON NORMALS: moves all extremities, no focal motor deficits and no sensory deficits noted SENSORIUM/ORIENTATION: Yes alert, Yes oriented to person, Yes oriented to place and Yes oriented to time Course Vital Signs: Vital signs: Vital Signs Pulse Rate 114 H 05/24/24 14:57 Blood Pressure 170/108 05/24/24 14:57 Pulse Oximetry 99 05/24/24 14:57 Oxygen Delivery Me thod Room Air 05/24/24 14:57 MDM - Extremity (Nontraumatic) Medical Decision Making Patient 53-year-old male noncompliant following a fracture to his right distal fibula approximately a month ago. He has removed his own cast. He is supposed to be nonweightbearing however he is weight bearing here without the use of his crutches. Has had issues with podiatry follow up due to insurance and not being able to provide his copay. He has had no new injuries. I do not feel repeat XRs are ultimately going to foreign exchange dealer. Will re-splint the extremity. Recommendations for nonweightbearing as instructed by podiatry and will have CM try and work with patient to get him set up with a follow up appointment. He is requesting something for pain. No radiology studies performed this visit Discharge Plan Discharge Patient Disposition: Home Clinical Impression: Closed fracture of right distal fibula Qualifiers: Encounter type: subsequent encounter Fracture morphology: unspecified fracture morphology Fracture healing: with delayed healing Qualified Code(s): S82.831G - Other fracture of upper and lower end of right fibula, subsequent encounter for closed fracture with delayed healing Condition: Stable Prescriptions: New tramadol 50 mg tablet 50 mg PO Q6H PRN (Reason: pain) Qty: 10 0RF Discontinued hydrocodone-acetaminophen 5-325 mg tablet 1 tab PO Q8H PRN (Reason: pain) 7 Days Qty: 21 0RF hydrocodone-acetaminophen 5-325 mg tablet 1 tab PO Q6H PRN (Reason: pain) Qty: 14 0RF hydrocodone-acetaminophen 5-325 mg tablet 1 tab PO QID PRN (Reason: pain) Qty: 14 0RF No Action gabapentin 600 mg tablet 600 mg PO TID 30 Days Qty: 90 3RF clonazepam [Klonopin] 1 mg tablet 1 mg PO TID PRN (Reason: Anxiety) atenolol 100 mg tablet 100 mg PO QAM (DME) soft cervical collar See Rx Instructions .Route .MEDSUPPLY Qty: 1 0RF Rx Instructions: As directed sertraline 100 mg tablet 200 mg PO .morning 30 Days Qty: 60 3RF Rx Instructions: Take two tablets every morning quetiapine 400 mg tablet 400 mg PO .8 pm Qty: 30 3RF Rx Instructions: Take one tablet at 8 pm (DME) mikhail brace See Rx Instructions .Route .MEDSUPPLY Qty: 1 0RF Rx Instructions: As directed pantoprazole [Protonix] 40 mg tablet,delayed release (DR/EC) 40 mg PO QAM varenicline 1 mg tablet 1 mg PO BID Vitamin B-1 (mononitrate) 100 mg Tablet 100 mg PO DAILY 30 Days Qty: 30 1RF Discharge Orders: Discharge ED (Routine); Ordered 05/24/24 Ordered By: Tavia Nuñez Referrals: Familia Khan MD [Primary Care Provider] - Patient Instructions: Opioid Safety, Pain Management Activity Restrictions/Additional Instructions: You need to be more compliant and utilize your crutches for nonweightbearing as instructed by podiatry otherwise you are risking your fracture not healing correctly. We will try to have case management work on getting you set up appointment with them. You need to continue wearing your splint for immobilization. Coding Level of Care Code ED Cashiers Supervisor for Ab Suarez
[2024-05-24 15:27] VITALS: BP 182/118; PULSE 96; RESP 14; TEMP 36.8; O2SAT 98
[2024-05-24] MEDS: ketorolac 60 mg/2 mL INJ IM (16:04)
[2024-05-24 16:09] VITALS: BP 157/99; PULSE 97; RESP 16; TEMP 36.8; O2SAT 99
--- NOTE | 2024-05-25 09:15 | DCPLANNER ---
Message sent to podiatry- Closed fracture of right distal fibula-
== END 2024-05-24 16:12 | disposition home or self-care (01) ==
PROVIDERS: Emergency Provider Physician Assistant; PCP Internal Medicine Cardiovascular Disease
DX: S82.831G Other fracture of upper and lower end of right fibula, subsequent encounter for closed fracture with delayed healing (principal); F17.210 Nicotine dependence, cigarettes, uncomplicated; X58.XXXD Exposure to other specified factors, subsequent encounter
CPT/HCPCS: 29515; 96372; 99284; E0114; J1885

== ENCOUNTER 2024-07-22 11:19 | Emergency (ER) | payer MEDICARE, MEDICAID, SELFPAY ==
[2023-07-15 13:53] VITALS: BP 140/81; BMI 23.1
[2024-07-22 12:04] VITALS: BP 128/94; PULSE 65; RESP 18; TEMP 36.3; O2SAT 98; BMI 25.1
--- NOTE | 2024-07-22 13:46 | ED_ITS ---
HPI - Dental/Oral General: Chief complaint: Dental/Oral Stated complaint: mouth dental pain, tooth cracked Time Seen by Provider: 07/22/24 13:40 History of Present Illness: 53-year-old male patient comes in today for complaints of dental pain. Patient has 3 teeth that gives him discomfort. No obvious swelling of the face or abscess formation is noted. Patient also reports some referred pain to his left ear. Patient has medications that he takes routinely for GERD, high blood pressure, and anxiety. Related Data Home Medications Medication Instructions Recorded Confirmed atenolol 100 mg tablet 100 mg PO QAM 02/07/23 04/30/24 clonazepam 1 mg tablet (Klonopin) 1 mg PO TID PRN Anxiety 02/07/23 04/30/24 pantoprazole 40 mg tablet,delayed 40 mg PO QAM 02/07/23 04/30/24 release (Protonix) varenicline 1 mg tablet 1 mg PO BID 07/09/23 04/30/24 Previous Rx's Medication Instructions Recorded gabapentin 600 mg tablet 600 mg PO TID 30 days #90 tabs 11/14/21 mikhail brace #1 ea 11/12/22 thiamine mononitrate (vit B1) 100 100 mg PO DAILY 30 days #30 tabs 07/11/23 mg tablet (Vitamin B-1 (mononitrate)) soft cervical collar #1 ea 07/24/23 quetiapine 400 mg tablet 400 mg PO .8 pm #30 tabs 08/19/23 sertraline 100 mg tablet 200 mg (2 x 100 mg) PO .morning 30 08/19/23 days #60 tabs tramadol 50 mg tablet 50 mg PO Q6H PRN pain #10 tabs 05/24/24 cephalexin 500 mg capsule 500 mg PO BID 10 days #20 caps 07/22/24 ketorolac 10 mg tablet 10 mg PO Q8H PRN pain #10 tabs 07/22/24 Allergies Allergy/AdvReac Type Severity Reaction Status Date / Time aspirin Allergy ADR-Nose Verified 05/24/24 15:02 Bleed Review of Systems General: Reports: 10 or more systems reviewed and unremarkable except in HPI and below PFSH ED PFSH: Medical History Cigarette nicotine dependence Alcohol dependence, binge pattern Post-traumatic stress disorder, chronic Chronic back pain Psychiatric care Family History Other Arthritis Post-traumatic stress disorder, chronic Social History Smoking and tobacco/nicotine status: current every day tobacco/nicotine user cigarettes Packs smoked per day: 0.5 Years cigarettes smoked: 26 Quit status (tobacco/nicotine): has tried quititng Number of times tried to quit tobacco: 2 Second hand smoke exposure: Yes Alcohol intake: current Alcohol intake frequency: few times a week Alcohol type: beer and hard liquor Substance/Drug Use: former Date of last use: early 20's Adopted: No Caregiver/support person: No Lives independently: No Household members: friend(s) Housing: House Marital status: Number of children: 1 Number of grandchildren: 0 Highest education level completed: High School Graduate service: Yes 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 branch: [employer] Assignments: Inside [facility] (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: [employer] Special francine needs: No Agree to transfusion: Yes Physical Exam Const: COMMON NORMALS: alert HENMT: COMMON NORMALS: normocephalic HEAD & SCALP: normocephalic MOUTH: other (Fair dentition, no obvious swelling or gingival erythema) Neck/C-Spine: COMMON NORMALS: full ROM Resp: COMMON NORMALS: normal respiratory effort Cardio: COMMON NORMALS: regular rate RATE: regular rate GI: COMMON NORMALS: Soft to palpation PALPATION: Yes Soft to palpation Back/Pelvis: COMMON NORMALS: thoracic and lumbar spine normal to inspection Extremity: COMMON NORMALS: full ROM Neuro: SENSORIUM/ORIENTATION: Yes alert Skin: COMMON NORMALS: turgor normal GENERAL SKIN EXAM: turgor normal Course Vital Signs: Vital signs: Vital Signs Temperature 97.3 F L 07/22/24 12:04 Pulse Rate 65 07/22/24 12:04 Respiratory Rate 18 07/22/24 12:04 Blood Pressure 128/94 07/22/24 12:04 Pulse Oximetry 98 07/22/24 12:04 Oxygen Delivery Me thod Room Air 07/22/24 12:04 [facility] [place] - Dental/Oral Medical Decision Making Patient presents with dental pain. On exam there is no obvious swelling or erythema to the gingiva. Patient does have fair repair of teeth. Minimal decay but some cavities are noted. Reviewed exam with patient recommended follow-up with dentist. Patient was prescribed Keflex and some ketorolac for his discomfort. Patient should follow-up with dentist for further treatment. Differential diagnosis included dental pain, dental abscess, dental caries All radiology interpretation(s) finalized by discharge Discharge Plan Discharge Patient Disposition: Home Clinical Impression: Toothache Condition: Stable Prescriptions: New cephalexin 500 mg capsule 500 mg PO BID 10 Days Qty: 20 0RF ketorolac 10 mg tablet 10 mg PO Q8H PRN (Reason: pain) Qty: 10 0RF Rx Instructions: maximum total duration of 5 days from all oral, intranasal, or parenteral formulations No Action gabapentin 600 mg tablet 600 mg PO TID 30 Days Qty: 90 3RF clonazepam [Klonopin] 1 mg tablet 1 mg PO TID PRN (Reason: Anxiety) atenolol 100 mg tablet 100 mg PO QAM (DME) soft cervical collar See Rx Instructions .Route .MEDSUPPLY Qty: 1 0RF Rx Instructions: As directed sertraline 100 mg tablet 200 mg PO .morning 30 Days Qty: 60 3RF Rx Instructions: Take two tablets every morning quetiapine 400 mg tablet 400 mg PO .8 pm Qty: 30 3RF Rx Instructions: Take one tablet at 8 pm (DME) mikhail brace See Rx Instructions .Route .MEDSUPPLY Qty: 1 0RF Rx Instructions: As directed tramadol 50 mg tablet 50 mg PO Q6H PRN (Reason: pain) Qty: 10 0RF pantoprazole [Protonix] 40 mg tablet,delayed release (DR/EC) 40 mg PO QAM varenicline 1 mg tablet 1 mg PO BID Vitamin B-1 (mononitrate) 100 mg Tablet 100 mg PO DAILY 30 Days Qty: 30 1RF Discharge Orders: Discharge ED (Routine); Ordered 07/22/24 Ordered By: Aidan Osborne Referrals: Familia Khan MD [Primary Care Provider] - Discharge Diet: Usual diet Discharge Activity: Increase activity as tolerated Patient Instructions: Toothache (ED) Activity Restrictions/Additional Instructions: Take antibiotic as directed. Follow-up with dentist for definitive care. Return to ER for new concerns. Coding Level of Care Code ED Director Staffing for Ab Suarez
[2024-07-22 14:26] VITALS: BP 132/85; PULSE 64; O2SAT 97
== END 2024-07-22 14:27 | disposition home or self-care (01) ==
PROVIDERS: Emergency Provider Nurse Practitioner Family; PCP Internal Medicine Cardiovascular Disease
DX: K08.89 Other specified disorders of teeth and supporting structures (principal); F17.210 Nicotine dependence, cigarettes, uncomplicated
CPT/HCPCS: 99283

== ENCOUNTER 2024-08-30 16:45 | Emergency (ER) | payer MEDICARE, MEDICAID, SELFPAY ==
[2023-07-15 13:53] VITALS: BP 140/81; BMI 23.1
[2024-08-30 16:49] VITALS: BP 117/72; PULSE 95; RESP 18; TEMP 36.8; O2SAT 91
[2024-08-30 16:59] VITALS: BP 117/72; PULSE 96; RESP 16; O2SAT 91
[2024-08-30] MEDS: ketorolac 60 mg/2 mL INJ IM (17:09)
[2024-08-30] MEDS: orphenadrine 30 mg/mL Inj 2 mL 60 MG IM (17:09)
[2024-08-30] MEDS: dexamethasone 10 mg/mL INJ IM (17:10)
--- NOTE | 2024-08-30 17:29 | ED_ITS ---
HPI - Back Pain/Injury General: Chief Complaint: Back Pain/Injury Stated Complaint: back/leg pain Time Seen by Provider: 08/30/24 16:47 History of Present Illness: 53-year-old male presents emergency room complaining of low back pain and leg pains been going on for several months been getting a little bit worse he seen his PCP on the at that time he was having some pain radiating into his left leg he states now he is having some to his right leg. He is on gabapentin was started on steroids and tramadol. He does not had any difficulty with loss of bowel control or urinary retention. Associated symptoms: Deny abdominal pain, chills, dysuria, fever(s) or urinary urgency Related Data Home Medications Medication Instructions Recorded Confirmed atenolol 100 mg tablet 100 mg PO QAM 02/07/23 04/30/24 clonazepam 1 mg tablet (Klonopin) 1 mg PO TID PRN Anxiety 02/07/23 04/30/24 pantoprazole 40 mg tablet,delayed 40 mg PO QAM 02/07/23 04/30/24 release (Protonix) varenicline 1 mg tablet 1 mg PO BID 07/09/23 04/30/24 Previous Rx's Medication Instructions Recorded gabapentin 600 mg tablet 600 mg PO TID 30 days #90 tabs 11/14/21 mikhail brace #1 ea 11/12/22 thiamine mononitrate (vit B1) 100 100 mg PO DAILY 30 days #30 tabs 07/11/23 mg tablet (Vitamin B-1 (mononitrate)) soft cervical collar #1 ea 07/24/23 quetiapine 400 mg tablet 400 mg PO .8 pm #30 tabs 08/19/23 sertraline 100 mg tablet 200 mg (2 x 100 mg) PO .morning 30 08/19/23 days #60 tabs tramadol 50 mg tablet 50 mg PO Q6H PRN pain #10 tabs 05/24/24 prednisone 20 mg tablet 20 mg PO TID #15 tabs 08/30/24 tizanidine 4 mg tablet 4 mg PO Q6H PRN muscle spasticity 08/30/24 #20 tabs Allergies Allergy/AdvReac Type Severity Reaction Status Date / Time aspirin Allergy ADR-Nose Verified 05/24/24 15:02 Bleed Review of Systems Const: Denies: fever(s) or chills Card: Denies: chest pain Resp: Denies: dyspnea GI: Denies: abdominal pain : Denies: dysuria, urinary frequency or urinary urgency Musc: Denies: neck pain or back pain Skin/Breast: Denies: rash PFSH ED PFSH: Medical History Cigarette nicotine dependence Alcohol dependence, binge pattern Post-traumatic stress disorder, chronic Chronic back pain Psychiatric care Family History Other Arthritis Post-traumatic stress disorder, chronic Social History Smoking and tobacco/nicotine status: current every day tobacco/nicotine user cigarettes Packs smoked per day: 0.5 Years cigarettes smoked: 26 Quit status (tobacco/nicotine): has tried quititng Number of times tried to quit tobacco: 2 Second hand smoke exposure: Yes Alcohol intake: current Alcohol intake frequency: few times a week Alcohol type: beer and hard liquor Substance/Drug Use: former Date of last use: early 20's Adopted: No Caregiver/support person: No Lives independently: No Household members: friend(s) Housing: House Marital status: Number of children: 1 Number of grandchildren: 0 Highest education level completed: High School Graduate service: Yes 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 branch: [employer] Assignments: Inside [facility] ([facility]) Known or Potential Exposure: None Current occupational status: unemployed Current occupational exposures/hazards: No Pets and animals: No Leisure activites: music and other Leisure activities details: remodeling Sexually active: No Do you think of yourself as: Straight/Heterosexual Current gender identity: Male Francine/Islam: Tenriism Special francine needs: No Agree to transfusion: Yes Physical Exam Const: GENERAL APPEARANCE: cooperative ORIENTATION/CONSCIOUSNESS: Yes awake, Yes oriented to person, Yes oriented to place and Yes oriented to time HENMT: COMMON NORMALS: normocephalic, atraumatic and hearing grossly normal bilaterally HEAD & SCALP: normocephalic and atraumatic Resp: COMMON NORMALS: normal respiratory effort, No retractions, No use of accessory muscles and clear to auscultation bilaterally AUSCULTATION: clear to auscultation bilaterally Cardio: COMMON NORMALS: regular rate, regular rhythm and No murmurs present (Cardio) RATE: regular rate RHYTHM: regular rhythm Extremity: COMMON NORMALS: normal to inspection, capillary refill normal, no clubbing, cyanosis or edema, no calf tenderness and no pedal edema Neuro: SENSORIUM/ORIENTATION: Yes oriented to person, Yes oriented to place and Yes oriented to time OTHER: Deep tendon reflexes +1/4 patellar tendon bilaterally sensation lower extremity normal straight leg raising is equivocal dorsum plantarflexion strength are 5 of 5 bilaterally in the lower extremities. Skin: COMMON NORMALS: no rashes or lesions noted GENERAL SKIN EXAM: no rashes or lesions noted Course Vital Signs: Vital signs: Vital Signs Temperature 98.2 F 08/30/24 16:49 Pulse Rate 91 08/30/24 17:49 Respiratory Rate 18 08/30/24 17:33 Blood Pressure 133/88 08/30/24 17:49 Pulse Oximetry 90 08/30/24 17:49 Oxygen Delivery Me thod Room Air 08/30/24 17:33 MDM - Back Pain/Injury Medical Decision Making Previous MRI of the back revealed no significant stenosis there was some mild stenosis he does not have any cauda equina symptoms at this time. Will increase his steroid taper add tizanidine and diclofenac. Encourage patient to follow-up with his primary care doctor for further treatment options or evaluation strategies. No imaging done at this visit. There is no sign of cauda equina based on his exam today. He does think he has worsening of his chronic back issues. He may need physical therapy and/or repeat MRI No radiology studies performed this visit Discharge Plan Discharge Patient Disposition: Home Clinical Impression: Lumbar disc disease with radiculopathy Condition: Stable Prescriptions: New tizanidine 4 mg tablet 4 mg PO Q6H PRN (Reason: muscle spasticity) Qty: 20 0RF Rx Instructions: do not exceed 3 doses per 24 hrs prednisone 20 mg tablet 20 mg PO TID Qty: 15 0RF Rx Instructions: 1 p.o. 3 times daily x3 days, 1 p.o. twice daily x2 days, 1 p.o. daily x2 days Discontinued ketorolac 10 mg tablet 10 mg PO Q8H PRN (Reason: pain) Qty: 10 0RF Rx Instructions: maximum total duration of 5 days from all oral, intranasal, or parenteral formulations No Action gabapentin 600 mg tablet 600 mg PO TID 30 Days Qty: 90 3RF clonazepam [Klonopin] 1 mg tablet 1 mg PO TID PRN (Reason: Anxiety) atenolol 100 mg tablet 100 mg PO QAM (DME) soft cervical collar See Rx Instructions .Route .MEDSUPPLY Qty: 1 0RF Rx Instructions: As directed sertraline 100 mg tablet 200 mg PO .morning 30 Days Qty: 60 3RF Rx Instructions: Take two tablets every morning quetiapine 400 mg tablet 400 mg PO .8 pm Qty: 30 3RF Rx Instructions: Take one tablet at 8 pm (DME) mikhail brace See Rx Instructions .Route .MEDSUPPLY Qty: 1 0RF Rx Instructions: As directed tramadol 50 mg tablet 50 mg PO Q6H PRN (Reason: pain) Qty: 10 0RF pantoprazole [Protonix] 40 mg tablet,delayed release (DR/EC) 40 mg PO QAM varenicline 1 mg tablet 1 mg PO BID Vitamin B-1 (mononitrate) 100 mg Tablet 100 mg PO DAILY 30 Days Qty: 30 1RF Discharge Orders: Discharge ED (Routine); Ordered 08/30/24 Ordered By: Niko Starr Referrals: Familia Khan MD [Primary Care Provider] - Discharge Diet: Usual diet Discharge Activity: Limit activity as instructed Patient Instructions: Lumbar Radiculopathy (ED), Lower Back Exercises (ED), Opioid Safety, Pain Management Activity Restrictions/Additional Instructions: Thank you for choosing [facility] for your healthcare needs today. It is very important that you follow up as instructed or that you return to the Emergency Department should you have concerns or if your condition changes or worsens in any way. You are seen in the emergency room with complaints of back pain with pain radiating to her lower extremities. Reviewed the MRI you had done a few years ago there was not a significant amount of stenosis although there was some noted there was some disc disease as well. Reviewed medications you were given recently. Recommend he stop the current steroid pack we gave you a stronger dose of steroids. Also recommend holding the ketorolac and instead using diclofenac. Continue use the tramadol you were previously prescribed we also gave you prescription for Norflex to use as a muscle relaxer. Follow-up as soon as you are able with your primary care doctor for further treatment and evaluation options. Coding Level of Care Code ED Circus Performer for Ab Suarez
[2024-08-30 17:33] VITALS: BP 133/88; PULSE 94; RESP 18; O2SAT 90
[2024-08-30 17:49] VITALS: BP 133/88; PULSE 91; O2SAT 90
== END 2024-08-30 17:58 | disposition home or self-care (01) ==
PROVIDERS: Emergency Provider Family Medicine; PCP Internal Medicine Cardiovascular Disease
DX: M51.16 Intervertebral disc disorders with radiculopathy, lumbar region (principal); F17.210 Nicotine dependence, cigarettes, uncomplicated
CPT/HCPCS: 96372; 99284; J1100; J1885; J2360

== ENCOUNTER → 2024-09-21 14:19 | Outpatient (BNVA) | payer MEDICARE, MEDICAID, SELFPAY ==
[2023-07-15 13:53] VITALS: BP 140/81; BMI 23.1
== END ==
PROVIDERS: PCP Internal Medicine Cardiovascular Disease; Visit Provider Orthopaedic Surgery
DX: M54.9 Dorsalgia, unspecified (principal); G89.29 Other chronic pain; M48.062 Spinal stenosis, lumbar region with neurogenic claudication
CPT/HCPCS: 72110; 99214

== ENCOUNTER 2024-10-21 15:51 | Outpatient (CLI) | payer MEDICARE, SELFPAY ==
[2023-07-15 13:53] VITALS: BP 140/81; BMI 23.1
--- NOTE | 2024-10-21 15:58 | MR_ITS ---
WS: [id number] MRI LUMBAR SPINE NONCONTRAST HISTORY: Back pain COMPARISON: 02/07/2022 TECHNIQUE: Sagittal and axial multisequence imaging is submitted. Normal lumbar alignment with no compression fractures or marrow edema. Mild disc space desiccation at L4-5 without narrowing. No marrow edema. Conus terminates normally at L1. L1-L2: Shallow central disc protrusion. No stenosis. L2-L3: Mild annular disc bulging with mild ligamentum flavum and facet arthritis. No stenosis or inte rval change. L3-L4: Mild annular disc bulging with mild encroachment upon the ventral thecal sac and subarticular recesses. Mild ligamentum flavum and facet disease. Fluid in the facet joints bilaterally. Very mild narrowing of the foramina. Similar to the prior exam. L4-L5: Mild annular disc bulging encroaching upon the ventral thecal sac and subarticular recesses. S lightly greater encroachment upon the LEFT subarticular recess and traversing L5 nerve root. Prior LE FT hemilaminectomy defect with scar formation. Mild to moderate ligamentum flavum and facet arthritis . Small amount of fluid in the RIGHT facet joint. Small LEFT paracentral disc protrusion. Mild to mod erate central with bilateral subarticular recess encroachment, LEFT greater than RIGHT. Minimal sue inal narrowing. Minimal progression of central stenosis since the prior study. L5-S1: Disc bulging. No stenosis. Normal paravertebral soft tissues. MR/MR lumbar spine wo con* [id number] IMPRESSION: 1. Status post LEFT hemilaminectomy at L4-5. 2. L4-5: Mild progression of central and subarticular recess encroachment by d isc and facet arthritis. Slightly greater encroachment upon the LEFT traversing L5 nerve root. 3. L3-4: Mild foraminal narrowing, similar to the prior study. Mild disc encro achment upon the subarticular recesses. 4. No fracture.
== END 2024-10-21 15:52 | disposition home or self-care (01) ==
PROVIDERS: PCP Internal Medicine Cardiovascular Disease; Visit Provider Orthopaedic Surgery
DX: M47.896 Other spondylosis, lumbar region (principal); Z98.890 Other specified postprocedural states; M51.26 Other intervertebral disc displacement, lumbar region; R93.89 Abnormal findings on diagnostic imaging of other specified body structures; M96.89 Other intraoperative and postprocedural complications and disorders of the musculoskeletal system; M51.379 Other intervertebral disc degeneration, lumbosacral region without mention of lumbar back pain or lower extremity pain
CPT/HCPCS: 72148

== ENCOUNTER → 2024-11-11 10:27 | Outpatient (BNVA) | payer MEDICARE, SELFPAY ==
[2023-07-15 13:53] VITALS: BP 140/81; BMI 23.1
== END ==
PROVIDERS: PCP Internal Medicine Cardiovascular Disease; Visit Provider Orthopaedic Surgery
DX: M48.062 Spinal stenosis, lumbar region with neurogenic claudication (principal)
CPT/HCPCS: 99214

== ENCOUNTER 2024-11-12 11:41 | Outpatient (CLI) | payer MEDICARE, SELFPAY ==
[2023-07-15 13:53] VITALS: BP 140/81; BMI 23.1
[2024-11-12 12:15] LABS: Basophils % 0.5 %; Eosinophils # 0.1 10^3/uL (0.0-0.8); Eosinophils % 1.9 %; Hematocrit 42.2 % (37-53); Lymphocytes # 2.2 10^3/uL (0.8-4.8); Lymphocytes % 37.5 %; Mean Corpuscular HGB Conc 34.1 g/dL (30-55); Mean Corpuscular Hemoglobin 35.1 pg (27-33); Mean Corpuscular Volume 102.9 fl (82-101); Mean Platelet Volume 8.8 fL (7.4-10.4); Monocytes # 0.6 10^3/uL (0.2-0.9); Monocytes % 10.8 %; Nucleated Red Blood Cells % 0 %; Platelet Count 224 10^3/cmm (157-399); Red Cell Distribution Width 13.1 % (12.1-15.1); White Blood Count 5.73 10^3/uL (3.29-11.43)
[2024-11-12 12:18] LABS: Bilirubin Urine Negative (Negative); Blood Urine Negative (Negative); Glucose Urine UA Negative (Normal); Ketones Urine Negative (Negative); Leukocyte Esterase Urine Negative (Negative); Nitrate Urine Negative (Negative); Protein Urine Negative (Negative); Specific Gravity, Urine 1.013 (1.005-1.030); Urine Appearance Clear (CLEAR); Urine Color Yellow (Yellow); Urobilinogen Urine 0.2 mg/dL (Negative); pH Urine 5.5 (5-7)
[2024-11-12 12:31] LABS: Alanine Aminotransferase 15 U/L (0-41); Albumin Level 4.1 g/dL (3.5-5.2); Alkaline Phosphatase 99 U/L (40-130); Anion Gap 14.6 (5-19); Aspartate Amino Transferase 14 U/L (0-40); Blood Urea Nitrogen 10 mg/dL (6-20); Calcium 8.9 mg/dL (8.5-10.5); Carbon Dioxide 25 mmol/L (22-29); Chloride 103 mmol/L (98-107); Globulin 2.4 g/dL (1.3-4.6); Glucose 110 mg/dL (65-115); Osmolality Calculated 288 mOsm/kg (285-295); Potassium 3.6 mmol/L (3.5-5.1); Sodium 139 mmol/L (136-145); Total Bilirubin 0.2 mg/dL (0.15-1.2); Total Protein 6.5 g/dL (6.6-8.7)
[2024-11-12 12:35] LABS: Add Urine Microscopic? YES; Bacteria Urine None Seen /hpf; Hyaline Casts Urine 0-4 /lpf; RBC Urine 0-2 /hpf (0-2); Squamous Epithelial Cell Urine 0-5 /hpf (0-5); WBC Urine 0-5 /hpf (0-5)
== END 2024-11-12 11:42 | disposition home or self-care (01) ==
LOC: LAB 11:42
PROVIDERS: PCP Internal Medicine Cardiovascular Disease; Visit Provider Orthopaedic Surgery
DX: Z01.818 Encounter for other preprocedural examination (principal)
CPT/HCPCS: 36415; 80053; 81001; 85025

== ENCOUNTER → 2024-11-23 08:59 | Outpatient (BNVA) | payer MEDICARE, SELFPAY ==
[2023-07-15 13:53] VITALS: BP 140/81; BMI 23.1
== END ==
PROVIDERS: PCP Internal Medicine Cardiovascular Disease; Visit Provider Family Medicine
DX: Z01.818 Encounter for other preprocedural examination (principal)
CPT/HCPCS: 80048; 81000; 85025

== ENCOUNTER 2024-12-17 05:30 | Day surgery (SDC) | payer MEDICARE, SELFPAY ==
[2023-07-15 13:53] VITALS: BP 140/81; BMI 23.1
[2024-12-17] VITALS (18 sets, daily range): BP systolic 129–172; BP diastolic 91–127; PULSE 72–92; RESP 16–18; TEMP 36.1–37.1; O2SAT 90–99; BMI 25.0
[2024-12-17] MEDS: sodium chloride 0.9% 1,000 ML 30 ML IV (06:13)
--- NOTE | 2024-12-17 06:30 | W.PM.OPSFHP ---
Same Day Surgery H&P Indication for Procedure/HPI DATE OF PROCEDURE: December 17, 2024 CHIEF COMPLAINT/INDICATIONFOR SURGICAL PROCEDURE: Back and leg pain PREOP DIAGNOSIS: Lumbar stenosis with neurogenic claudication PLANNED PROCEDURE: Operation Date: 12/17/24 07:00 Proposed Procedures p Lumbar Decompression(Not Applicable) - Francois Tubbs DO Medications/Allergies* Home Medications ?Medication ?Instructions ?Recorded ?Confirmed ?Type atenolol 100 mg tablet 100 mg PO QAM 02/07/23 12/17/24 History clonazepam 1 mg tablet (Klonopin) 1 mg PO TID PRN Anxiety 02/07/23 12/17/24 History pantoprazole 40 mg tablet,delayed 40 mg PO QAM 02/07/23 12/17/24 History release (Protonix) atorvastatin 10 mg tablet 10 mg PO QDAY 11/23/24 12/17/24 History Allergies/Adverse Reactions Allergy/AdvReac Type Severity Reaction Status Date / Time aspirin Allergy ADR-Nose Verified 11/23/24 08:45 Bleed Current Medications: Generic Name Dose Route Start Last Admin Trade Name Freq PRN Reason Stop Dose Admin Sodium Chloride 1,000 mls @ 30 mls/hr 12/17/24 06:00 12/17/24 06:13 Sodium Chloride 0.9% IV 12/18/24 05:59 30 mls/hr .Q24H DREW Administration Pertinent History/Comorbid Conditions* Medical History (Updated 09/21/24 @ 14:50 by Francois Tubbs DO) Cigarette nicotine dependence Alcohol dependence, binge pattern Post-traumatic stress disorder, chronic Chronic back pain Psychiatric care Family History (Updated 04/17/23 @ 13:20 by Shanthi Melo LMSW) Post-traumatic stress disorder, chronic Arthritis Social History Smoking and tobacco/nicotine status: current every day tobacco/nicotine user cigarettes Packs smoked per day: 0.5 Years cigarettes smoked: 26 Quit status (tobacco/nicotine): has tried quititng Number of times tried to quit tobacco: 2 Second hand smoke exposure: Yes Alcohol intake: current Alcohol intake frequency: few times a week Alcohol type: beer and hard liquor Substance/Drug Use: former Date of last use: early 20's Adopted: No Caregiver/support person: No Lives independently: No Household members: friend(s) Housing: House Marital status: Number of children: 1 Number of grandchildren: 0 Highest education level completed: High School Graduate service: Yes 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 [employer] [facility] [employer] ([employer]) Known or Potential Exposure: None Current occupational status: unemployed Current occupational exposures/hazards: No Pets and animals: No Leisure activites: music and other Leisure activities details: remodeling Sexually active: No Do you think of yourself as: Straight/Heterosexual Current gender identity: Male Francine/Scientology: Hoahaoism Special francine needs: No Agree to transfusion: Yes Pertinent Exam Findings oriented x 3 and procedure specific exam findings Recommendations Surgery/Procedure today Coding Level of Care Code Acute Code for Chg Fwd
--- NOTE | 2024-12-17 06:41 | ANES.PREANE2 ---
Pre-Anesthetic Assessment Height/Weight: Height 1.78 m Weight 78.925 kg Temp Pulse Resp BP Pulse Ox O2 Del Method 97.9 F 72 16 129/91 95 Room Air 12/17/24 06:00 12/17/24 06:00 12/17/24 06:00 12/17/24 06:00 12/17/24 06:00 12/17/24 06:07 Preop Diagnosis: Lumbar stenosis with neurogenic claudication Operation Date: 12/17/24 07:00 Proposed Procedures p Lumbar Decompression(Not Applicable) - Francois Tubbs, DO Familial anesthetic complications: None Was Beta Gonzalo taken within 24 hours: N/A Was Clonidine taken within 24 hours: N/A Last intake: Intake Last Liquid Date 12/16/24 Last Liquid Time 23:30 Last Solid Date 12/16/24 Last Solid Time 13:00 Social Alcohol and Tobacco Exam alert, oriented x 3, clear to auscultation bilaterally and regular rate & rhythm Airway Mallampati: Class II Dentition: chipped CV/HEM Hypertension GI Gastroesophageal Reflux Disease Metabolic Hyperlipidemia Anesthetic Plan ASA status: 2 Anesthesia: General Risk of > 500 ml blood loss (7ml/kg in children): No Medications/Allergies Home Medications ?Medication ?Instructions ?Recorded ?Confirmed ?Last Taken ?Type gabapentin 600 mg tablet 600 mg PO TID 30 days #90 tabs 11/14/21 12/17/24 12/16/24 Rx mikhail brace #1 ea 11/12/22 12/17/24 Unknown Rx atenolol 100 mg tablet 100 mg PO QAM 02/07/23 12/17/24 12/17/24 History clonazepam 1 mg tablet (Klonopin) 1 mg PO TID PRN Anxiety 02/07/23 12/17/24 12/16/24 History pantoprazole 40 mg tablet,delayed 40 mg PO QAM 02/07/23 12/17/24 12/17/24 History release (Protonix) soft cervical collar #1 ea 07/24/23 12/17/24 Unknown Rx atorvastatin 10 mg tablet 10 mg PO QDAY 11/23/24 12/17/24 12/16/24 History Allergies Allergy/AdvReac Type Severity Reaction Status Date / Time aspirin Allergy ADR-Nose Verified 11/23/24 08:45 Bleed Current Medications Generic Name Dose Route Start Last Admin Trade Name Freq PRN Reason Stop Dose Admin Sodium Chloride 1,000 mls @ 30 mls/hr 12/17/24 06:00 12/17/24 06:13 Sodium Chloride 0.9% IV 12/18/24 05:59 30 mls/hr .Q24H DREW Administration PFSH Anesthesia Medical History Cigarette nicotine dependence Alcohol dependence, binge pattern Post-traumatic stress disorder, chronic Chronic back pain Psychiatric care Family History Other Arthritis Post-traumatic stress disorder, chronic Social History Smoking and tobacco/nicotine status: current every day tobacco/nicotine user cigarettes Packs smoked per day: 0.5 Years cigarettes smoked: 26 Quit status (tobacco/nicotine): has tried quititng Number of times tried to quit tobacco: 2 Second hand smoke exposure: Yes Alcohol intake: current Alcohol intake frequency: few times a week Alcohol type: beer and hard liquor Substance/Drug Use: former Date of last use: early 20's Adopted: No Caregiver/support person: No Lives independently: No Household members: friend(s) Housing: House Marital status: Number of children: 1 Number of grandchildren: 0 Highest education level completed: High School Graduate service: Yes 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
[2024-12-17] MEDS: ceFAZolin 2,000 mg SDV 2000 MG IVP (06:54)
[2024-12-17] MEDS: lidocaine-epi 1% 20 mL INJ INJECTION (07:28)
--- NOTE | 2024-12-17 08:24 | PM.OP ---
Operative Report Date of procedure: December 17, 2024 Pre-op diagnosis: Lumbar stenosis with neurogenic claudication Post-op diagnosis: same Procedure done: 1. L3-4 laminectomy with partial facetectomy 2. Revision L4-5 laminectomy with partial facetectomy Surgeon: Francois Tubbs DO Estimated blood loss (mL): 25 Procedure: 1. L3-4 laminectomy with partial facetectomy 2. Revision L4-5 laminectomy with partial facetectomy Patient is brought to the operative suite. After undergoing anesthesia they are placed in the prone position. All areas of impingement are well padded. Patient is then prepped and draped in the normal sterile fashion. A skin incision is made over the L3/4 level. This is confirmed under c-arm guidance. A series of dilators are passed and the tubular retractor is docked on the L3 lamina. A bovie is used to clear the soft tissue off the lamina and the L 3/4 facet joint. A high speed joel is then used to perform the laminectomy and take down the medial aspect of the L 3/4 facet joint. A kerrison rongeure was then used to take down the remaining lamina and smooth the edge of the laminectomy up to the point where the ligamentum flavum attaches. Attention was then brought to the medial aspect of the facet joint. The remaining medial aspect of the superior and inferior aspect of the facet joint were taken down with the kerrison from the pedicle of L3 to L 4. The facet joint had significant hypertrophy. Attention was then brought to the Ligamentum Flavum. The ligament was taken down from the lamina of L3 to L4 and out medially to the remaining facet joint. The ligament was thick. The dura was then exposed. The dura was in good repair. The L3 nerve was then traced with a curette out the L3/4 foramen and found to be adequately decompressed. The L4 nerve was traced with a curette around the L4 pedicle. The lateral recess was opened with a kerrison helping to further decompress the L4 nerve. Wound is then irrigated copiously with saline and surgiflo is used to stop any bleeding. The tubular retractor is removed A skin incision is made over the L4/5 level. This is confirmed under c-arm guidance. A series of dilators are passed and the tubular retractor is docked on the L4 lamina. A bovie is used to clear the soft tissue and scar tissue off the lamina and the L 4/5 facet joint. Facet joint was loose and this was dissected out. A high speed joel is then used to perform the laminectomy and take down the medial aspect of the L 4/5 facet joint. A kerrison rongeure was then used to take down the remaining lamina and smooth the edge of the laminectomy up to the point where the ligamentum flavum attaches. The scar tissue was dissected off of the facet joint and the nerve. Attention was then brought to the medial aspect of the facet joint. The remaining medial aspect of the superior and inferior aspect of the facet joint were taken down with the kerrison from the pedicle of L4 to L 5. The facet joint had significant hypertrophy. Attention was then brought to the Ligamentum Flavum. The ligament was taken down from the lamina of L4 to L5 and out medially to the remaining facet joint. The ligament was thick and scarred down. The dura was then exposed. The dura was in good repair. The L4 nerve was then traced with a curette out the L4/5 foramen and found to be adequately decompressed. The L5 nerve was traced with a curette around the L5 pedicle. The lateral recess was opened with a kerrison helping to further decompress the L5 nerve. Wound is then irrigated copiously with saline and surgiflo is used to stop any bleeding. The tubular retractor is removed and the wound is closed with vicryl and monocryl suture. Glue is then used to protect the wound. A sterile dressing is then placed. Patient was then placed in the supine position and transferred to the PACU in stable condition.
[2024-12-17] MEDS: HYDROmorphone 1 mg/mL INJ 1ml 0.5 MG IVP ×2 (08:42→08:52)
[2024-12-17] MEDS: labetalol 5 mg/mL SDV 20mL 100 MG (08:52)
--- NOTE | 2024-12-17 10:10 | ANE.PACU2 ---
Inpatient post-anesthesia follow up: Airway intact: Yes Vital signs: Temperature 97.8 F Pulse Rate 86 Respiratory Rate 18 Blood Pressure 145/91 Pulse Oximetry 93 Oxygen Delivery Me thod Room Air Oxygen Flow Rate 6 Fraction of Inspir ed Oxygen Hydration adequate: Yes Nausea and vomiting: No Pain level: 1 Mental status: Baseline
== END 2024-12-17 10:11 | disposition home or self-care (01) ==
PROVIDERS: PCP Internal Medicine Cardiovascular Disease; Visit Provider Orthopaedic Surgery
PROC: (CPT 63005; principal; 2024-12-17 07:00)
DX: M48.062 Spinal stenosis, lumbar region with neurogenic claudication (principal); F17.210 Nicotine dependence, cigarettes, uncomplicated; I10 Essential (primary) hypertension; K21.9 Gastro-esophageal reflux disease without esophagitis; K08.89 Other specified disorders of teeth and supporting structures; Z79.899 Other long term (current) drug therapy; Z88.8 Allergy status to other drugs, medicaments and biological substances
CPT/HCPCS: 63047; 63048; 72100; 76000; J0131; J0690; J1100; J1171; J2250; J2405; J2704; J3010; J3490; J7030

== ENCOUNTER → 2025-01-04 07:32 | Outpatient (BNVA) | payer MEDICARE, SELFPAY ==
[2023-07-15 13:53] VITALS: BP 140/81; BMI 23.1
== END ==
PROVIDERS: PCP Internal Medicine Cardiovascular Disease; Visit Provider Orthopaedic Surgery
DX: Z98.890 Other specified postprocedural states (principal)
CPT/HCPCS: 99024

== ENCOUNTER → 2025-01-25 14:20 | Outpatient (BNVA) | payer MEDICARE, SELFPAY ==
[2023-07-15 13:53] VITALS: BP 140/81; BMI 23.1
== END ==
PROVIDERS: PCP Internal Medicine Cardiovascular Disease; Visit Provider Orthopaedic Surgery
DX: Z98.890 Other specified postprocedural states (principal)
CPT/HCPCS: 99024

== ENCOUNTER → 2025-03-08 14:13 | Outpatient (BNVA) | payer MEDICARE, SELFPAY ==
[2023-07-15 13:53] VITALS: BP 140/81; BMI 23.1
== END ==
PROVIDERS: PCP Internal Medicine Cardiovascular Disease; Visit Provider Orthopaedic Surgery
DX: Z98.890 Other specified postprocedural states (principal)
CPT/HCPCS: 99024

== ENCOUNTER → 2025-04-19 13:08 | Outpatient (BNVA) | payer MEDICARE, SELFPAY ==
[2023-07-15 13:53] VITALS: BP 140/81; BMI 23.1
== END ==
PROVIDERS: PCP Internal Medicine Cardiovascular Disease; Visit Provider Orthopaedic Surgery
DX: M48.062 Spinal stenosis, lumbar region with neurogenic claudication (principal); M54.50 Low back pain, unspecified; M79.604 Pain in right leg
CPT/HCPCS: 99213

== ENCOUNTER 2025-05-10 13:18 | Outpatient (CLI) | payer MEDICARE, SELFPAY ==
[2023-07-15 13:53] VITALS: BP 140/81; BMI 23.1
--- NOTE | 2025-05-10 14:45 | MR_ITS ---
WS: [id number] MRI LUMBAR SPINE NONCONTRAST TECHNIQUE: Sagittal T1, T2 and STIR imaging. Axial T1 and T2 imaging. CLINICAL INFORMATION: back pain radiating to right leg COMPARISON: MRI 10/21/2024 FINDINGS: LEFT laminectomies L3-4 and L4-5. Mild lumbar curve. No acute compression. No high-grade central canal stenosis. L1-L2: Mild facet arthropathy. L2-L3: Mild annular bulging. Mild facet arthropathy. Spinal canal and foramen are patent. L3-L4: Mild annular bulging. Moderate facet arthropathy. LEFT hemilaminectomy. Spinal canal and foramen are patent. L4-L5: Mild annular bulging. Small annular fissure. Impingement on the LEFT subarticular recess and traversing LEFT L5 nerve root. This is similar to previous. Moderate facet arthropathy. Prior LEFT hemilaminectomy. Tiny RIGHT foraminal protrusion with slight contact of the far exiting RIGHT L4 nerve root. Slight narrowing of the RIGHT subarticular recess. L5-S1: Mild annular bulging. Slight effacement of the ventral thecal sac. Spinal canal and foramen are patent. Moderate facet arthropathy. Visualized pelvic bony structures: Normal. Paravertebral soft tissues: Normal. MR/MR lumbar spine wo con* [id number] IMPRESSION: 1. Prior hemilaminectomies LEFT L3-4 and LEFT L4-5. 2. LEFT paracentral protrusion L4-5 impinges the LEFT subarticular recess and traversing LEFT L5 nerve root. Slight narrowing RIGHT subarticular recess. This is similar to previous. 3. Tiny RIGHT foraminal protrusion L4-5 with slight contact of the exiting RIG HT L4 nerve root laterally. This appears similar to previous.. 4. Mild annular bulging L5-S1. 5. Moderate facet arthropathy L3-L5. 6. No other significant changes.
== END 2025-05-10 13:19 | disposition home or self-care (01) ==
PROVIDERS: PCP Internal Medicine Cardiovascular Disease; Visit Provider Orthopaedic Surgery
DX: M48.062 Spinal stenosis, lumbar region with neurogenic claudication (principal); M54.50 Low back pain, unspecified; M79.604 Pain in right leg
CPT/HCPCS: 72148

== ENCOUNTER → 2025-05-17 14:25 | Outpatient (BNVA) | payer MEDICARE, SELFPAY ==
[2023-07-15 13:53] VITALS: BP 140/81; BMI 23.1
== END ==
PROVIDERS: PCP Internal Medicine Cardiovascular Disease; Visit Provider Orthopaedic Surgery
DX: M48.062 Spinal stenosis, lumbar region with neurogenic claudication (principal); Z98.890 Other specified postprocedural states
CPT/HCPCS: 36415; 80053; 81001; 85025; 99214

== ENCOUNTER → 2025-06-10 05:51 | Day surgery (SDC) | payer MEDICARE, SELFPAY ==
[2023-07-15 13:53] VITALS: BP 140/81; BMI 23.1
[2025-06-10] VITALS (21 sets, daily range): BP systolic 138–179; BP diastolic 81–106; PULSE 73–93; RESP 12–20; TEMP 36.1–36.6; O2SAT 93–99
--- NOTE | 2025-06-10 06:17 | P.ANESASSM_ITS ---
Pre-Anesthetic Assessment Height/Weight: Height 5 ft 10 in Preop Diagnosis: Lumbar stenosis with neurogenic claudication Operation Date: 06/10/25 07:00 Proposed Procedures p Spine Decompression Lumbar Decompression(Not Applicable) - Francois Tubbs, DO Was Beta Gonzalo taken within 24 hours: Yes Was Clonidine taken within 24 hours: N/A Social Tobacco and No alcohol Exam alert, oriented x 3, clear to auscultation bilaterally and regular rate & rhythm Airway Submandibular: within normal limits Cervical ROM: within normal limits Mallampati: Class III Comments: Comments: Few missing teeth, denies any loose Anesthetic Plan ASA status: 3 Anesthesia: General Other: No prior issues with anesthesia N.p.o. since yesterday evening History of hypertension on atenolol GERD, controlled with Protonix PTSD Current smoker Labs reviewed from 05/17/2025 and acceptable for procedure today EKG showing sinus rhythm with incomplete RBBB and possible prior old septal AK Plan for GETA Medications/Allergies Home Medications ?Medication ?Instructions ?Recorded ?Confirmed ?Last Taken ?Type gabapentin 600 mg tablet 600 mg PO TID 30 days #90 ta bs 11/14/21 06/10/25 06/09/25 Rx mikhail brace #1 ea 11/12/22 06/10/25 Unkn own Rx atenolol 100 mg tablet 100 mg PO QAM 02/07/2306/1006/09/25 History clonazepam 1 mg tablet (Klonopin) 1 mg PO TID PRN Anxi ety 02/07/23 06/10/25 06/09/25 History pantoprazole 40 mg tablet,delayed 40 mg PO QAM 3 06/10/25 06/09/25 History release (Protonix) soft cervical collar #1 ea 07/24/23 06/10/25 Unkn own Rx atorvastatin 10 mg tablet 10 mg PO QDAY 11/23/2406/1006/09/25 History Back Brace #1 ea 03/08/25 06/10/25 Unkn own Rx quetiapine 400 mg tablet 400 mg PO .BEDTIME 06/09/25 06/10/25 06/09/25 History Allergies Allergy/AdvReac Type Severity Reaction Status Date / Time aspirin Allergy ADR-Nose Verified 06/01/25 09:14 Bleed [facility] Anesthesia Medical History Cigarette nicotine dependence Alcohol dependence, binge pattern Post-traumatic stress disorder, chronic Chronic back pain Family History Other Arthritis Post-traumatic stress disorder, chronic Social History Smoking and tobacco/nicotine status: current every day tobacco/nicotine user cigarettes Packs smoked per day: 0.5 Years cigarettes smoked: 26 Quit status (tobacco/nicotine): has tried quititng Number of times tried to quit tobacco: 2 Second hand smoke exposure: Yes Alcohol intake: current Alcohol intake frequency: few times a week Alcohol type: beer and hard liquor Substance/Drug Use: former Date of last use: early Adopted: No Caregiver/support person: No Lives independently: No Household members: friend(s) Housing: House Marital status: Number of children: 1 Number of grandchildren: 0 Highest education level completed: High School Graduate service: Yes 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) Known or Potential Exposure: None Current occupational status: unemployed Current occupational exposures/hazards: No Pets and animals: No Leisure activites: music and other Leisure activities details: remodeling Sexually active: No Do you think of yourself as: Straight/Heterosexual Current gender identity: Male Francine/Taoist: Spiritism Special francine needs: No Agree to transfusion: Yes
--- NOTE | 2025-06-10 06:26 | W.PM.OPSUD ---
Surgery/Procedure H&P Update DATE OF PROCEDURE: June 10, 2025 DATE H&P PERFORMED: 05/17/25 H&P UPDATE INFORMATION: I have reviewed H&P completed within last 30 days, I have examined patient prior to procedure and No changes to prior documentation PREOP DIAGNOSIS: Lumbar stenosis with neurogenic claudication PLANNED PROCEDURE: Operation Date: 06/10/25 07:00 Proposed Procedures p Spine Decompression Lumbar Decompression(Not Applicable) - Francois Tubbs DO
[2025-06-10] MEDS: ceFAZolin 2,000 mg SDV 2000 MG IVP (06:52)
[2025-06-10] MEDS: lidocaine-epi 1% 20 mL INJ INJECTION (07:35)
--- NOTE | 2025-06-10 07:54 | P.OP_ITS ---
Operative Report Date of procedure: June 10, 2025 Pre-op diagnosis: Lumbar stenosis neurogenic claudication Post-op diagnosis: same Procedure done: L4-5 laminectomy with partial facetectomy Surgeon: Francois Tubbs DO Estimated blood loss (mL): 5 Procedure: Patient is brought to the operative suite. After undergoing anesthesia they are placed in the prone position. All areas of impingement are well padded. Patient is then prepped and draped in the normal sterile fashion. A skin incision is made over the L4/5 level. This is confirmed under c-arm guidance. A series of dilators are passed and the tubular retractor is docked on the L4 lamina. A bovie is used to clear the soft tissue off the lamina and the L4/5 facet joint. A high speed joel is then used to perform the laminectomy and take down the medial aspect of the L 4/5 facet joint. A kerrison rongeure was then used to take down the remaining lamina and smooth the edge of the laminectomy up to the point where the ligamentum flavum attaches. Attention was then brought to the medial aspect of the facet joint. The r emaining medial aspect of the superior and inferior aspect of the facet joint were taken down with the kerrison from the pedicle of L4 to L 5. The facet joint had significant hypertrophy. Attention was then brought to the Ligamentum Flavum. The ligament was taken down from the lamina of L4 to L5 and out medially to the remaining facet joint. The ligament was thick. The dura was then exposed. The dura was in good repair. The L4 nerve was then traced with a curette out the L4/5 foramen and found to be adequately decompressed. The L5 nerve was traced with a curette around the L5 pedicle. The lateral recess was opened with a kerrison helping to further decompress the L5 nerve. Wound is then irrigated copiously with saline and surgiflo is used to stop any bleeding. The tubular retractor is removed and the wound is closed with vicryl and monocryl suture. Steri strips were applied. A sterile dressing is then placed. Patient was then placed in the supine position and transferred to the PACU in stable condition.
--- NOTE | 2025-06-10 08:02 | XR_ITS ---
WS: [id number] Lumbar spine, C-arm fluoroscopy views, 06/10/2025 Clinical Data: OR PICS Comparison: Lumbar spine, 09/21/2024 Findings: Dr. Tubbs performed a lumbar decompression XR/XR lumbar spine 2-3V* [id number] Impression: Lumbar decompression.
[2025-06-10] MEDS: fentaNYL 50 mcg/mL INJ 2mL IVP ×2 (08:12→08:18)
[2025-06-10] MEDS: HYDROmorphone 1 mg/mL INJ 1ml 0.5 MG IVP ×2 (08:33→08:45)
--- NOTE | 2025-06-10 09:48 | ANE.PACU2 ---
Inpatient post-anesthesia follow up: Airway intact: Yes Vital signs: Temperature 97.7 F Pulse Rate 88 Respiratory Rate 16 Blood Pressure 167/81 Pulse Oximetry 98 Oxygen Delivery Me thod Room Air Oxygen Flow Rate Fraction of Inspir ed Oxygen Hydration adequate: Yes Nausea and vomiting: No Pain level: 1 Mental status: Baseline
== END | disposition home or self-care (01) ==
PROVIDERS: PCP Internal Medicine Cardiovascular Disease; Visit Provider Orthopaedic Surgery
PROC: (CPT 63047; principal; 2025-06-10 07:00)
DX: M48.062 Spinal stenosis, lumbar region with neurogenic claudication (principal); K21.9 Gastro-esophageal reflux disease without esophagitis; I10 Essential (primary) hypertension; F17.210 Nicotine dependence, cigarettes, uncomplicated; F43.12 Post-traumatic stress disorder, chronic
CPT/HCPCS: 63047; 72100; 76000; J0690; J1171; J2175; J2250; J2704; J3010; J3490; J7030; J9999

== ENCOUNTER 2025-06-13 09:42 | Emergency (ER) | payer MEDICARE, SELFPAY ==
--- OUTSIDE RECORDS SUMMARY | 2015-05-02 10:36 | XMS_ITS | Continuity of Care Document ---
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 - Active Carafate 1 gram tablet take 1 tablet by oral route every day on an empty stomach 1 hour before meals - Active Called to pharm. CYCLOBENZAPR 10MG TAB TAKE ONE TABLET BY MOUTH THREE TIMES DAILY NEEDED FOR BACK PAIN 10 MG - Active citalopram 20 mg tablet take 1 tablet by oral route every day 20 MG - Active take 1/2 ta blet daily for 7 days, then increase to one full tablet. baclofen 10 mg tablet take 1 tablet by oral route 3 times every day as needed for pain - Active Tylenol 8 Hour 650 mg tablet,extended release take 1 tablet by oral route every 8 hours as needed swallowing whole with water. Do not break, crush, dissolve and/or chew. 650 MG - Active buspirone 10 mg tablet take 1 tablet by oral route 2 times every day 10 MG - Active take 1/2 tablet twice daily for 7 days, then increase to one full tablet twice daily. Procedures Procedure Date OFFICE/OUTPATIENT VISIT EST OFFICE/OUTPATIENT VISIT EST No Show OFFICE/OUTPATIENT VISIT, EST OFFICE/OUTPATIENT VISIT, EST OFFICE/OUTPATIENT VISIT, EST At Least 1 Prescription Thru Qual E-RX M ar OFFICE/OUTPATIENT VISIT, EST At Least 1 Prescription Thru Qual E-RX D ec OFFICE/OUTPATIENT VISIT, EST At Least 1 Prescription Thru Qual E-RX J OFFICE/OUTPATIENT VISIT, EST OFFICE/OUTPATIENT VISIT, EST OFFICE/OUTPATIENT VISIT, NEW At Least 1 Prescription Thru Qual E-RX O DRUG SCREEN SINGLE (PP $40) ASSAY OF URINE CREATININE (PP $8.75) Jul Advance Directives Directive Yes / No Effective Date File Name No Information Encounters Encounter Description Practice Location Reason(s) For Visit Diagnoses Date Provider Providers Copied on Encounter [facility], [id number]- [place], [place], [address], [place] tel:[phone] Family Medicine F1 No Information No Information [facility], [id number] [id number], [address], [place] tel:[phone] Family Medicine F1 No Information Paul Winters. [address], [place], [address], [place]. tel:[phone] [facility], [id number] [id number]- [place], [place], [address], [place] tel:[phone] Family Medicine F1 No Information 5 No Information OFFICE/OUTPA TIENT VISIT EST [facility], [id number]- [place], [place], [address], [place] tel:[phone] Family Medicine F1 Back pain (chief complaint) depression (chief complaint) Intervertebral disc disorder with myelopathy, lumbar regionAnxietyDepr ession 5 No Information OFFICE/OUTPA TIENT VISIT [facility], [id number] [id number], [facility] [place], [address], [place] tel:[phone] Family Medicine F1 Back pain (chief complaint) Anxiety (chief complaint) AnxietyInterverte bral disc disorder with myelopathy, lumbar regionDepressionF atigueTobacco Abuse 4 No Information [facility], [id number] [id number], [place], [place], [address], [place] tel:[phone] Family Medicine F1 No Information 4 No Information OFFICE/OUTPA TIENT VISIT, [facility], [id number] [id number] [facility], [facility] [place], [address], [place] tel:[phone] Family Medicine F1 3 month f/u (chief complaint) Anxiety (chief complaint) Back pain (chief complaint) Intervertebral disc disorder with myelopathy, lumbar regionAnxietyToba healthcare account manager AbuseShoulder painCervicalgia 4 No Information OFFICE/OUTPA TIENT VISIT, [facility], [id number] [facility], [place], [place], [address], [place] tel:[phone] Family Medicine F1 est care with new PCP (chief complaint) Intervertebral disc disorder with myelopathy, lumbar regionTobacco AbuseAnxietyDepre ssionFatigueScree chuy for lipid disorder 4 No Information OFFICE/OUTPA TIENT VISIT, [facility], [id number] 3299619BMCoffeyville [facility], [facility] [place], [address], [place] tel:[phone] Family Medicine F1 f/u spine center (chief complaint) Intervertebral disc disorder with myelopathy, lumbar regionAnxiety 4 No Information OFFICE/OUTPA TIENT VISIT, [facility], [id number] 1707078KGCoffeyville [facility], [place], [place], [address], [place] tel:[phone] Family Medicine F1 anxiety (chief complaint) Intervertebral disc disorder with myelopathy, lumbar regionAnxietyErec tile Dysfunction 3 No Information OFFICE/OUTPA TIENT VISIT, [facility], [id number] 9607954DFCoffeyville Regional [facility] Center, [place], [place], [address], [place] tel:[phone] Family Medicine F1 mercy f/u (chief complaint) AnxietyInterverte bral disc disorder with myelopathy, lumbar regionHeartburn 3 No Information OFFICE/OUTPA TIENT VISIT, [facility], [id number] 7283194RHSatanta [facility], [place], [place], [address], [place] tel:[phone] Family Medicine F1 med refills (chief complaint) AnxietyInsomnia, OtherTobacco Abuse 3 No Information OFFICE/OUTPA TIENT VISIT, [facility], [id number] 7696084FRSatanta District Hospital, [place], [place], [address], [place] tel:[phone] Family Medicine F1 anxiety (chief complaint) Insomnia, Other 3 No Information OFFICE/OUTPA TIENT VISIT, [facility], [id number] [id number] Regional Medical Center, [place], [place], [address], [place] tel:[phone] Family Medicine F1 anxiety (chief complaint) AnxietyEncounter for therapeutic drug monitoringTobacco Abuse 2 No Information [facility], [id number] [id number] District Hospital, [facility] [place], [address], [place] tel:[phone] Family Medicine F1 Encounter for therapeutic drug monitoring 2 No Information Family History Family Member Type Diagnosis Age At Onset No Information Payers Payer name Insurance type Covered republican ID Authoriza tion(s) No Information Social History Type Description Quantity Date Captured Comments Alcohol Use Details Unknown Caffeine Use Details Unknown Tobacco Use Status No Information Smoking Status No Information Sex Male Chief Complaint And Reason For Visit No Information Reason For Referral Reason For Referral No Information Plan Of Treatment Date Type Action Status Goal Tobacco cessation counseling completed Goal Tobacco cessation counseling completed Goal Tobacco cessation counseling completed Goal Tobacco cessation counseling completed Referral Ordered: Referral: neurosurgery. Evaluate and treat. ordered Future Order: Lab Order CBC With Differential/Platelet ([id number]), Sent on: Sent Future Order: Lab Order CMP ([id number]), Sen t on: Sent Future Order: Lab Order TSH-InHo use ([id number]), Sent on: Sent Future Order: Lab Order Lipid Pr ofile ([id number]), Collected on: Ordered Future Order: Lab Order CBC With Differential/Platelet ([id number]), Ordered on: Ordered Future Order: Lab Order CMP ([id number]), Ord ered on: Ordered Future Order: Lab Order Testoste bren,Free and Total ([id number]), Ordered on: Ordered Future Order: Lab Order TSH-InHo use ([id number]), Ordered on: Ordered History Of Present Illness Encounter Date Complaint History Of Prese nt Illness Back pain The problem is s table. It occurs intermittently. Location of pain is lower back and neck.There is no radiation of pain. The patient describes the pain as an ache. Context: fall on 01/26 and history of lumbar spine surgery..The patient denies aggravating factors. Symptoms are relieved by pain meds/drugs. Additional information: Pthasn't been taking any medication for his pain. He did have a fall in his bath tub 01/26. MRI of C through L spine was essentially normal. Very mild disc bulge at L5. ER report from 01/26 indicates he was mis using medication-overtaking trazodone. depression This is a follow up visit. There is continuation of initial symptoms. The patient reports functioning as somewhat difficult. The patient presents with anxious/fearful thoughts, depressed mood, fatigue and restlessness but denies thoughts of or suicide. The patient's risk factors include chronic illness and history of depression. The depression is aggravated by conflict or stress, social interactions and winter season. Interventions the patient has tried have not provided any relief. The depression is associated with chronic pain (low back). The patient denies any headache, irritability, nausea, sweating, trembling, urinary frequency, vomiting and weight gain. Additional information: Pt. states he hasn't been taking anymedications. He states he didn't have Sertraline, However, he should have refills. He didn't feel like the sertraline was working. Back pain The problem is s table. It occurs occasionally. Location of pain is lower back and neck. Pain is radiated to the right arm.The patient describes the pain as an ache and burning. Symptoms are aggravated by daily activities. Symptoms are relieved by pain meds/drugs. Additional information: Patient continues to have lower back, neck, and right shoulder pain. He is currently working. 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 Anxiety This is a follow up visit. There is continuation of initial symptoms. The patient reports functioning as somewhat difficult. The patient presents with anxious/fearful thoughts, depressed mood, difficulty concentrating and difficulty falling asleep. The Anxiety is aggravated by drug use and social interactions but not with alcohol use or conflict or stress. The patient denies any chronic pain, headache, irritability, nausea, sweating, trembling, urinary frequency, vomiting and weight gain. Additional information: Patient states he continues to have anxiety. Was unable to tolerate any of the anti-depressants. Still has not started counseling. who is present states she feels he is depressed. Only took anti-depressants for 3-4 days. Back pain (comments) He is using pain medication 2-3 times per day. Sometimes less. He feels like he would be fine to cut back on the pain medication. Still has intermittent lower back pain. More now in neck and right shoulder. 3 month f/u Patient is here for follow-up and refill of medication. Anxiety The patient pres ents with anxious/fearful thoughts, difficulty concentrating, difficulty falling asleep, difficulty staying asleep and excessive worry but denies decreased need for sleep, depressed mood or diminished interest or pleasure. The patient denies any chronic pain, headache, irritability, nausea, sweating, trembling, urinary frequency, vomiting and weight gain. Additional information: Doing well on Clonazepam. States he has been on for about 5 years. Has seen psychiatry/psychology in the past. Back pain Location of pain is neck. Pain is radiated to the left arm and right arm.The patient describes the pain as an ache and shooting. Additional information: Patient states lower back pain has resolved since surgery with Dr. Mederos. Continues to have neck and shoulder pain. States he was supposed to have follow-up MRI of neck. Has lost his insurance now and unable to get this done. Has been seen by ortho. est care with new PCP Patient is here today to establish care. He just had surgery on his L-spine in January. He continues to follow-up with Dr. Mederos. he would like a refill on his medications today. He has not been using the Glasgow as frequently. He would also like a refill of his Clonazepam. He has been taking this medication since about 2011. It is working well for him. He has tried Celexa, Zoloft, and a few other anti-depressants along with his Clonazepam in the past. None of these worked well for him in the past.He is not fasting. He would like to return to the clinic for fasting labs. Functional Status Date Functional Assessmen t No Information Instructions Date Instruction Additional Infor nelson Citalopram as listed .Please schedule follow-up appointment in 3 months. Related to Depression Buspirone as listed. Please maintain appt for counseling/psychiatry in [place] in March. Related to Anxiety Okay to increase deisy lofen to three times daily as needed.Extended release Tylenol as needed for pain.No narcotic pain medications today due to indications that you have been mis-using the medication. Related to Intervertebral disc disorder with myelopathy, lumbar region Labs as listed.You m ay return to have these done for lab only visit. Related to Fatigue Chronic pain medicat ion refilled.Continue to wean, goal is to make this script last greater than one month. Related to Intervertebral disc disorder with myelopathy, lumbar region Sertraline as listed with instructions.We will refer you for counseling today.Please follow-up/call in 1 month. Related to Depression Will reduce Klonopin to BID.Meet with [facility] today. Related to Anxiety Released from Dr. Aj fortune. Lower back pain is improved. Related to Intervertebral disc disorder with myelopathy, lumbar region Patient will sign fo r records from Dr. Du today. Related to Shoulder pain Clonazepam refilled as ordered.He agrees to psychiatry/counseling referral once insurance is active. Related to Anxiety Needs MRI of neck. W ill refer at next appt with insurance is active.Pain medication refilled as ordered by Dr. Anthony.No increase in dosage today. Related to Cervicalgia Labs as ordered. Related to Fati israel Return fasting for labs. Related to Screening for lipid disorder Wellbutrin as ordered. Related t o Depression Advised to stop smok ingWellbutrin as ordered. Related to Tobacco Abuse 2 Mos S/P surgery-Wi ll begin Glasgow only twice daily to begin weaning off of medication. Related to Intervertebral disc disorder with myelopathy, lumbar region Assessments Type Assessment Date No Information Patient Care Teams Name Effective Dates (start - stop) Status Members No Information
[2023-07-15 13:53] VITALS: BP 140/81; BMI 23.1
--- NOTE | 2025-06-13 09:36 | W.ED.BACK ---
HPI - Back Pain/Injury General: Chief Complaint: Back Pain/Injury Stated Complaint: post op back pain Source: patient Mode of arrival: EMS Limitations: no limitations History of Present Illness: Patient is a 54-year-old male presents to ED today with a complaint of lower back pain. He is 3 days postop back surgery by Dr. Tubbs where he underwent a L4-5 laminectomy with partial facetectomy. States he is having to take his pain medications as 2 tabs every 4 hours or so and even this is not controlling his pain. He states he has been following postop restrictions as far as lifting/twisting/turning. He is not complaining of saddle anesthesia or bowel or bladder incontinence/retention. He does have some tingling to his legs that was present prior to surgery. He states he has not noticed any drainage from his incision or surrounding redness. No fevers. He is not sure when his follow-up appointment with Dr. Tubbs is. MD elicited complaint: back pain Pertinent past history: back surgery Timing: constant Severity: severe Location: lumbar spine Exacerbating factors: movement and walking Relieving factors: none Context: other (recent surgery) Associated symptoms: Reports difficulty walking; Deny abdominal pain, chills, dysuria, fatigue, fever(s) or hematuria Treatments prior to arrival: prescription analgesics Work related injury: No Related Data Home Medications ?Medication ?Instructions ?Recorded ?Confirmed atenolol 100 mg tablet 100 mg PO QAM 02/07/23 06/10/25 clonazepam 1 mg tablet (Klonopin) 1 mg PO TID PRN Anxiety 02/07/23 06/10/25 pantoprazole 40 mg tablet,delayed 40 mg PO QAM 02/07/23 06/10/25 release (Protonix) atorvastatin 10 mg tablet 10 mg PO QDAY 11/23/24 06/10/25 quetiapine 400 mg tablet 400 mg PO .BEDTIME 06/09/25 06/10/25 Previous Rx's ?Medication ?Instructions ?Recorded gabapentin 600 mg tablet 600 mg PO TID 30 days #90 tabs 11/14/21 mihkail brace #1 ea 11/12/22 soft cervical collar #1 ea 07/24/23 Back Brace #1 ea 03/08/25 hydrocodone 5 mg-acetaminophen 325 1 - 2 tab PO .Q4-6H #40 tabs 06/10/25 mg tablet dexamethasone 6 mg tablet 6 mg PO DAILY #6 tabs 06/13/25 hydrocodone 5 mg-acetaminophen 325 1 tab PO Q6H PRN pain #14 tabs 06/13/25 mg tablet ibuprofen 800 mg tablet 800 mg PO Q8H PRN pain #20 tabs 06/13/25 methocarbamol 500 mg tablet 1,000 mg (2 x 500 mg) PO Q8H #30 06/13/25 tabs Allergies Allergy/AdvReac Type Severity Reaction Status Date / Time aspirin Allergy ADR-Nose Verified 06/01/25 09:14 Bleed Review of Systems Const: Denies: fever(s), chills, body aches, fatigue or malaise Card: Denies: chest pain Resp: Denies: dyspnea GI: Denies: abdominal pain : Denies: flank pain, dysuria or hematuria Musc: Reports: back pain; Denies: neck pain, extremity pain, extremity swelling, joint pain, joint swelling or joint redness Skin/Breast: Denies: rash Neuro: Reports: sensory changes and difficulty walking; Denies: headache(s) or weakness in extremities PFSH ED PFSH: Medical History Cigarette nicotine dependence Alcohol dependence, binge pattern Post-traumatic stress disorder, chronic Chronic back pain Family History Other Arthritis Post-traumatic stress disorder, chronic Social History Smoking and tobacco/nicotine status: current every day tobacco/nicotine user cigarettes Packs smoked per day: 0.5 Years cigarettes smoked: 26 Quit status (tobacco/nicotine): has tried quititng Number of times tried to quit tobacco: 2 Second hand smoke exposure: Yes Alcohol intake: current Alcohol intake frequency: few times a week Alcohol type: beer and hard liquor Substance/Drug Use: former Date of last use: early Adopted: No Caregiver/support person: No Lives independently: No Household members: friend(s) Housing: House Marital status: Number of children: 1 Number of grandchildren: 0 Highest education level completed: High School Graduate service: Yes 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) Known or Potential Exposure: None Current occupational status: unemployed Current occupational exposures/hazards: No Pets and animals: No Leisure activites: music and other Leisure activities details: remodeling Sexually active: No Do you think of yourself as: Straight/Heterosexual Current gender identity: Male Francine/Jewish: Congregation Special francine needs: No Agree to transfusion: Yes Physical Exam Const: COMMON NORMALS: no acute distress, average body habitus, patient oriented x3, no limitations, healthy appearing, alert and well nourished GENERAL APPEARANCE: cooperative ORIENTATION/CONSCIOUSNESS: Yes awake, Yes oriented to person, Yes oriented to place and Yes oriented to time Neck/C-Spine: COMMON NORMALS: full ROM GENERAL: Yes normal visual inspection CERVICAL SPINE: Yes cervical ROM normal, No Cervical spine tenderness and No Paracervical muscle tenderness Resp: COMMON NORMALS: normal respiratory effort and clear to auscultation bilaterally AUSCULTATION: clear to auscultation bilaterally Cardio: COMMON NORMALS: regular rate and regular rhythm RATE: regular rate RHYTHM: regular rhythm GI: COMMON NORMALS: Normal to inspection, nondistended, normoactive bowel sounds present, Soft to palpation, non-tender and no masses PALPATION: Yes Soft to palpation : COMMON NORMALS: Yes no CVA tenderness BLADDER/KIDNEY EXAM: Yes no CVA tenderness Back/Pelvis: COMMON NORMALS: no CVA tenderness THORACIC SPINE/UPPER BACK: No thoracic spinal tenderness LUMBAR SPINE/LOWER BACK: Yes lumbar spinal tenderness and No paraspinal muscle tenderness PELVIS: Yes buttocks normal and No sciatic notch tenderness SACROILIAC JOINTS: Yes SI joints normal SACRUM: no tenderness COCCYX: no tenderness OTHER: lumbar surgical incision looks clean/well cared for Extremity: COMMON NORMALS: normal to inspection and full ROM GENERAL: Yes normal exam except as noted Neuro: COMMON NORMALS: patient oriented x3, moves all extremities, no focal motor deficits and no sensory deficits noted SENSORIUM/ORIENTATION: Yes alert, Yes oriented to person, Yes oriented to place and Yes oriented to time SENSORY EXAM: Yes other (normal sensation to bilateral LEs) MOTOR EXAM: 5/5 motor strength present throughout Course Vital Signs: Vital signs: Vital Signs Temperature 98.2 F 06/13/25 09:42 Pulse Rate 73 06/13/25 09:42 Respiratory Rate 16 06/13/25 10:17 Blood Pressure 114/76 06/13/25 09:42 Pulse Oximetry 93 06/13/25 10:17 Oxygen Delivery Me thod Room Air 06/13/25 09:42 MDM - Back Pain/Injury Medical Decision Making Patient feeling better after IV medications given here. He was ambulatory without difficulty or assistance. Will try to get him a follow-up appointment with Dr. Tubbs this week for further evaluation. Patient surgical incision appears clean and well cared for. I do not feel we need to obtain emergent imaging on today's visit. Will place him on steroids, anti-inflammatories, muscle relaxers in addition to his opiate pain medications to see if this better controls his pain. He is requesting additional opiate rx in case he runs out prior to his appointment with Dr. Tubbs-discussed how pharmacy may not fill this as he still has an active prescription. Discussed how the medications I placed him on today should be synergistic with the opiates allowing for better pain control. Medical Records I reviewed the patient's medical records. No radiology studies performed this visit Discharge Plan Discharge Patient Disposition: Home Clinical Impression: Postoperative back pain Condition: Stable Prescriptions: New methocarbamol 500 mg tablet 1,000 mg PO Q8H Qty: 30 0RF ibuprofen 800 mg tablet 800 mg PO Q8H PRN (Reason: pain) Qty: 20 0RF hydrocodone-acetaminophen 5-325 mg tablet 1 tab PO Q6H PRN (Reason: pain) Qty: 14 0RF dexamethasone 6 mg tablet 6 mg PO DAILY Qty: 6 0RF No Action gabapentin 600 mg tablet 600 mg PO TID 30 Days Qty: 90 3RF clonazepam [Klonopin] 1 mg tablet 1 mg PO TID PRN (Reason: Anxiety) atenolol 100 mg tablet 100 mg PO QAM (DME) soft cervical collar See Rx Instructions .Route .MEDSUPPLY Qty: 1 0RF Rx Instructions: As directed atorvastatin 10 mg tablet 10 mg PO QDAY (DME) Back Brace See Rx Instructions .Route .MEDSUPPLY Qty: 1 0RF Rx Instructions: As directed (DME) mikhail brace See Rx Instructions .Route .MEDSUPPLY Qty: 1 0RF Rx Instructions: As directed pantoprazole [Protonix] 40 mg tablet,delayed release (DR/EC) 40 mg PO QAM quetiapine 400 mg tablet 400 mg PO .BEDTIME hydrocodone-acetaminophen 5-325 mg tablet 1 - 2 tab PO .Q4-6H Qty: 40 0RF Discharge Orders: Discharge ED (Routine); Ordered 06/13/25 Ordered By: Tavia Nuñez Referrals: Familia Khan MD [Primary Care Provider, Cardiology] Patient Instructions: Opioid Safety, Pain Management, Patient Portal & Maciel Instructions Activity Restrictions/Additional Instructions: As we discussed, we will try to get you set up with Dr. Tubbs this week for reevaluation. I am placing you on additional medications of steroids, anti-inflammatories, and muscle relaxers in hopes that this can better control your discomfort in addition to the hydrocodone that you are prescribed. You need to take the hydrocodone sparingly and only as needed for significant discomfort. Print Language: Djiboutian Coding Level of Care Code ED Lead Database Administrator for Ab Suarez
[2025-06-13 09:42] VITALS: BP 114/76; PULSE 73; RESP 16; TEMP 36.8; O2SAT 92; BMI 27.2
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
--- NOTE | 2025-06-13 10:07 | DCPLANNER ---
messaged ortho for er f/u
[2025-06-13 10:17] VITALS: RESP 16; O2SAT 93
[2025-06-13] MEDS: ondansetron 2 mg/ML SDV 2 mL 4 MG IVP (10:17)
[2025-06-13] MEDS: morphine 4 mg/mL SDV 1 mL IVP (10:17)
[2025-06-13] MEDS: orphenadrine 30 mg/mL Inj 2 mL 60 MG IVP (10:17)
== END 2025-06-13 11:03 | disposition home or self-care (01) ==
PROVIDERS: Emergency Provider Physician Assistant; PCP Internal Medicine Cardiovascular Disease
DX: G89.18 Other acute postprocedural pain (principal); M54.50 Low back pain, unspecified; F17.210 Nicotine dependence, cigarettes, uncomplicated; Z98.890 Other specified postprocedural states
CPT/HCPCS: 96374; 96375; 99284; J1100; J2270; J2360; J2405

== ENCOUNTER → 2025-06-16 10:29 | Outpatient (BNVA) | payer MEDICARE, SELFPAY ==
[2023-07-15 13:53] VITALS: BP 140/81; BMI 23.1
== END ==
PROVIDERS: PCP Internal Medicine Cardiovascular Disease; Visit Provider Orthopaedic Surgery
DX: Z98.890 Other specified postprocedural states (principal)
CPT/HCPCS: 99024

== ENCOUNTER 2025-06-29 15:33 | Emergency (ER) | payer MEDICARE, SELFPAY ==
--- OUTSIDE RECORDS SUMMARY | 2015-05-02 10:36 | XMS_ITS | Continuity of Care Document ---
Author Organization [facility] Address [address] [id number]-JqlfkwAllen County Hospital [place] [address] Phone Care Team Providers Care Certified Hand Therapist Name Role Phone Unavailable Unavailable Unavailable Allergies, [...] Diagnoses Date Provider Providers Copied on Encounter [facility], [id number]- [place], [place], [address], [place] tel:[phone] Family Medicine F1 No Information No Information [facility], [id number] [address], [place], [address], [place] tel:[phone] Family Medicine F1 No Information Paul Winters. [address] [place], [place], [address], [place]. tel:[phone] [facility], [id number] 1092095VC- [place], [place], [address], [place] tel:[phone] Family Medicine F1 No Information 5 No Information OFFICE/OUTPA TIENT VISIT EST [facility], [id number]- [place], [place], [address], [place] tel:[phone] Family Medicine F1 Back pain (chief complaint) depression (chief complaint) Intervertebral disc disorder with myelopathy, lumbar regionAnxietyDepr ession 5 No Information OFFICE/OUTPA TIENT VISIT [facility], [id number] [facility], [facility] [place], [address], [place] tel:[phone] Family Medicine F1 Back pain (chief complaint) Anxiety (chief complaint) AnxietyInterverte bral disc disorder with myelopathy, lumbar regionDepressionF atigueTobacco Abuse 4 No Information [facility], [id number] 8783174KNOttawa County [facility], [place], [place], [address], [place] tel:[phone] Family Medicine F1 No Information 4 No Information OFFICE/OUTPA TIENT VISIT, [facility], [id number] County Health Center, [facility] [place], [address], [place] tel:[phone] Family Medicine F1 3 month f/u (chief complaint) Anxiety (chief complaint) Back pain (chief complaint) Intervertebral disc disorder with myelopathy, lumbar regionAnxietyToba promotions firm accounts manager AbuseShoulder painCervicalgia 4 No Information OFFICE/OUTPA TIENT VISIT, [facility], [id number] County Health Center, [place], [place], [address], [place] tel:[phone] Family Medicine F1 est care with new PCP (chief complaint) Intervertebral disc disorder with myelopathy, lumbar regionTobacco AbuseAnxietyDepre ssionFatigueScree chuy for lipid disorder 4 No Information OFFICE/OUTPA TIENT VISIT, [facility], [address] [id number] [id number] County Health Center, [facility] [place], [address], [place] tel:[phone] Family Medicine F1 f/u spine center (chief complaint) Intervertebral disc disorder with myelopathy, lumbar regionAnxiety 4 No Information OFFICE/OUTPA TIENT VISIT, [facility], [id number] County Health Center, [place], [place], [address], [place] tel:[phone] Family Medicine F1 anxiety (chief complaint) Intervertebral disc disorder with myelopathy, lumbar regionAnxietyErec tile Dysfunction 3 No Information OFFICE/OUTPA TIENT VISIT, [facility], [address] [id number] County [facility] Center, [place], [place], [address], [place] tel:[phone] Family Medicine F1 mercy f/u (chief complaint) AnxietyInterverte bral disc disorder with myelopathy, lumbar regionHeartburn 3 No Information OFFICE/OUTPA TIENT VISIT, [facility], [id number] [facility], [place], [place], [address], [place] tel:[phone] Family Medicine F1 med refills (chief complaint) AnxietyInsomnia, OtherTobacco Abuse 3 No Information OFFICE/OUTPA TIENT VISIT, [facility], [id number] County Hospital, [place], [place], [address], [place] tel:[phone] Family Medicine F1 anxiety (chief complaint) Insomnia, Other 3 No Information OFFICE/OUTPA TIENT VISIT, [facility], [id number] County Health Center, [place], [place], [address], [place] tel:[phone] Family Medicine F1 anxiety (chief complaint) AnxietyEncounter for therapeutic drug monitoringTobacco Abuse 2 No Information [facility], [id number] County Hospital, [facility] [place], [address], [place] tel:[phone] Family Medicine F1 Encounter for therapeutic drug monitoring 2 No Information Family History Family Member Type Diagnosis Age At Onset No Information Payers Payer name Insurance type Covered democrat ID Authoriza tion(s) No Information Social History [...] Future Order: Lab Order CBC With Differential/Platelet ([id number]), Sent on: Sent Future Order: Lab Order CMP ([id number]), Sen t on: Sent Future Order: Lab Order TSH-InHo use ([id number]), Sent on: Sent Future Order: Lab Order Lipid Pr ofile ([id number]), Collected on: Ordered Future Order: Lab Order CBC With Differential/Platelet ([id number]), Ordered on: Ordered Future Order: Lab Order CMP ([id number]), Ord ered on: Ordered Future Order: Lab Order Testoste bren,Free and Total ([id number]), Ordered on: Ordered Future Order: Lab Order TSH-InHo use ([id number]), Ordered on: Ordered History Of Present Illness [...] today. He has not been using the York as frequently. He would also like a [...] listed. Please maintain appt for counseling/psychiatry in [place] in March. Related to Anxiety Okay to [...] Depression Will reduce Klonopin to BID.Meet with [facility] today. Related to Anxiety Released from Dr. [...] increase in dosage today. Related to Cervicalgia Return fasting for labs. Related to Screening for lipid disorder Labs as ordered. Related to Fati israel 2 Mos S/P surgery-Wi ll begin York only twice daily to begin weaning off of medication. Related to Intervertebral disc disorder with myelopathy, lumbar region Wellbutrin as ordered. Related t o Depression Advised to stop smok ingWellbutrin as ordered. Related to Tobacco Abuse Assessments Type Assessment Date No Information Patient Care Teams Name Effective Dates (start - stop) Status Members No Information
[2023-07-15 13:53] VITALS: BP 140/81; BMI 23.1
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
[2025-06-29 15:58] VITALS: BP 120/57; PULSE 82; TEMP 36.8; O2SAT 97
--- NOTE | 2025-06-29 16:48 | W.ED.BACK ---
HPI - Back Pain/Injury General: Chief Complaint: Back Pain/Injury Stated Complaint: Extreme back pain Time Seen by Provider: 06/29/25 16:06 Source: patient Mode of arrival: ambulatory Limitations: no limitations History of Present Illness: Patient is a 54-year-old male who presents emergency department complaining of right lower back pain rating in the right leg. States he has history of numerous back surgeries, most recent was a couple weeks ago with Dr. Tubbs. He notes that the pain has been making it difficult to walk, however has remained ambulatory without assistance and has been taking Putney at home with no relief. He states that he is set to see surgery on Friday but cannot wait that long to get any new pain meds. He is not reporting any bowel or bladder incontinence or saddle anesthesia. No other focal neurological deficits. No paralysis or paresthesias to the lower extremities. No fevers. Clinically he appears well at this time, nontoxic-appearing. He is not reporting any recurrent trauma. MD elicited complaint: back pain Pertinent past history: prior back pain and back surgery Onset (ago): day(s) Timing: constant Severity: similar to previous episodes Similar Symptoms Previously: Yes Location: right lower back Radiation: right leg below the knee Exacerbating factors: movement Associated symptoms: Deny abdominal pain, difficulty walking, fecal incontinence, fever(s) or syncope Treatments prior to arrival: prescription analgesics Work related injury: No Related Data Home Medications ?Medication ?Instructions ?Recorded ?Confirmed atenolol 100 mg tablet 100 mg PO QAM 02/07/23 06/29/25 pantoprazole 40 mg tablet,delayed 40 mg PO QAM 02/07/23 06/29/25 release (Protonix) atorvastatin 10 mg tablet 10 mg PO QDAY 11/23/24 06/29/25 quetiapine 400 mg tablet 400 mg PO .BEDTIME 06/09/25 06/29/25 clonazepam 2 mg tablet 2 mg PO Q12H PRN Anxiety 06/29/25 06/29/25 hydrocodone 5 mg-acetaminophen 325 1 - 2 tab PO .Q4-6H PRN Pain 06/29/25 06/29/25 mg tablet Previous Rx's ?Medication ?Instructions ?Recorded gabapentin 600 mg tablet 600 mg PO TID 30 days #90 tabs 11/14/21 mikhail brace #1 ea 11/12/22 soft cervical collar #1 ea 07/24/23 Back Brace #1 ea 03/08/25 Allergies Allergy/AdvReac Type Severity Reaction Status Date / Time aspirin Allergy ADR-Nose Verified 06/29/25 16:02 Bleed Review of Systems General: Reports: 10 or more systems reviewed and unremarkable except in HPI and below Const: Reports: other (denies trauma); Denies: fever(s), change in weight or night sweats Card: Denies: chest pain, lightheadedness or syncope Resp: Denies: dyspnea GI: Denies: abdominal pain or fecal incontinence : Denies: urinary incontinence Musc: Reports: back pain and extremity pain (RLE); Denies: neck pain Skin/Breast: Denies: rash or skin pain Neuro: Denies: headache(s), numbness in extremities, weakness in extremities, sensory changes, lack of coordination, difficulty walking, frequent falls or involuntary movements PFSH ED PFSH: Medical History Cigarette nicotine dependence Alcohol dependence, binge pattern Post-traumatic stress disorder, chronic Chronic back pain Family History Other Arthritis Post-traumatic stress disorder, chronic Social History Smoking and tobacco/nicotine status: current every day tobacco/nicotine user cigarettes Packs smoked per day: 0.5 Years cigarettes smoked: 26 Quit status (tobacco/nicotine): has tried quititng Number of times tried to quit tobacco: 2 Second hand smoke exposure: Yes Alcohol intake: current Alcohol intake frequency: few times a week Alcohol type: beer and hard liquor Substance/Drug Use: former Date of last use: early 's Adopted: No Caregiver/support person: No Lives independently: No Household members: friend(s) Housing: House Marital status: Number of children: 1 Number of grandchildren: 0 Highest education level completed: High School Graduate service: Yes 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 branch: [employer] Assignments: [employer] ([employer]) Known or Potential Exposure: None Current occupational status: unemployed Current occupational exposures/hazards: No Pets and animals: No Leisure activites: music and other Leisure activities details: remodeling Sexually active: No Do you think of yourself as: Straight/Heterosexual Current gender identity: Male Francine/Scientologist: Mu-Ism Special francine needs: No Agree to transfusion: Yes Physical Exam Const: COMMON NORMALS: no acute distress, patient oriented x3, no limitations, healthy appearing and alert Resp: COMMON NORMALS: normal respiratory effort, No retractions, No use of accessory muscles and clear to auscultation bilaterally AUSCULTATION: clear to auscultation bilaterally Cardio: COMMON NORMALS: regular rate, regular rhythm, S1 normal heart sound present and S2 normal heart sound present RATE: regular rate RHYTHM: regular rhythm HEART SOUNDS: S1 normal heart sound present and S2 normal heart sound present Back/Pelvis: OTHER: Normal visual examination. No spinous process tenderness or paracervical, parathoracic, or paralumbar tenderness to palpation. Full active range of motion. Extremity: COMMON NORMALS: normal to inspection and full ROM Neuro: COMMON NORMALS: patient oriented x3, moves all extremities, no focal motor deficits, no sensory deficits noted, deep tendon reflexes 2+ bilaterally and gait normal SENSORIUM/ORIENTATION: Yes alert OTHER: L3, L4, L5, and S1 nerve sensations intact. Normal knee jerk and ankle jerk reflexes. Skin: COMMON NORMALS: no rashes or lesions noted GENERAL SKIN EXAM: no rashes or lesions noted Course Vital Signs: Vital signs: Vital Signs Temperature 98.3 F 06/29/25 15:58 Pulse Rate 68 06/29/25 17:08 Respiratory Rate 16 06/29/25 16:49 Blood Pressure 122/64 06/29/25 17:08 Pulse Oximetry 97 06/29/25 17:08 Oxygen Delivery Me thod Room Air 06/29/25 15:58 MDM - Back Pain/Injury Medical Decision Making Patient presenting with acute on chronic lumbar pain, history of multiple surgeries. There are no red flag symptoms on history or exam, he notes taking Putney at home for pain. States that he is set to have follow-up early next week but states that the pain was too severe. However nontoxic-appearing on exam, no focal neurological deficit and after medications he states he feels much better and wants to go home. Return precautions given. No radiology studies performed this visit Discharge Plan Discharge Patient Disposition: Home Clinical Impression: Lumbar disc disease with radiculopathy Condition: Stable Prescriptions: No Action gabapentin 600 mg tablet 600 mg PO TID 30 Days Qty: 90 3RF atenolol 100 mg tablet 100 mg PO QAM (DME) soft cervical collar See Rx Instructions .Route .MEDSUPPLY Qty: 1 0RF Rx Instructions: As directed atorvastatin 10 mg tablet 10 mg PO QDAY (DME) Back Brace See Rx Instructions .Route .MEDSUPPLY Qty: 1 0RF Rx Instructions: As directed (DME) mikhail brace See Rx Instructions .Route .MEDSUPPLY Qty: 1 0RF Rx Instructions: As directed clonazepam 2 mg tablet 2 mg PO Q12H PRN (Reason: Anxiety) hydrocodone-acetaminophen 5-325 mg tablet 1 - 2 tab PO .Q4-6H PRN (Reason: Pain) pantoprazole [Protonix] 40 mg tablet,delayed release (DR/EC) 40 mg PO QAM quetiapine 400 mg tablet 400 mg PO .BEDTIME Discharge Orders: Discharge ED (Routine); Ordered 06/29/25 Ordered By: Terence Otto Referrals: Familia Khan MD [Primary Care Provider, Cardiology] Patient Instructions: Patient Portal & Maciel Instructions Activity Restrictions/Additional Instructions: Please keep follow-up with provider early next week as we discussed. Continue taking home pain medications. Return with any loss of function of bowel or bladder, numbness in the groin region, or any other major concerns that you have. Print Language: Djiboutian Coding Level of Care Code ED Sales Development Consultant for Ab Suarez
[2025-06-29 16:49] VITALS: RESP 16; O2SAT 98
[2025-06-29] MEDS: morphine 4 mg/mL SDV 1 mL IM (16:49)
[2025-06-29] MEDS: orphenadrine 30 mg/mL Inj 2 mL 60 MG IM (16:50)
[2025-06-29 17:08] VITALS: BP 122/64; PULSE 68; O2SAT 97
== END 2025-06-29 17:09 | disposition home or self-care (01) ==
PROVIDERS: Emergency Provider Physician Assistant; PCP Internal Medicine Cardiovascular Disease
DX: M51.16 Intervertebral disc disorders with radiculopathy, lumbar region (principal); F17.210 Nicotine dependence, cigarettes, uncomplicated
CPT/HCPCS: 96372; 99284; J1100; J1885; J2270; J2360

== ENCOUNTER → 2025-07-05 08:17 | Outpatient (BNVA) | payer MEDICARE, SELFPAY ==
[2023-07-15 13:53] VITALS: BP 140/81; BMI 23.1
== END ==
PROVIDERS: PCP Internal Medicine Cardiovascular Disease; Visit Provider Orthopaedic Surgery
DX: Z98.890 Other specified postprocedural states (principal)
CPT/HCPCS: 99024

== ENCOUNTER → 2025-08-04 15:15 | Outpatient (BNVA) | payer MEDICARE, SELFPAY ==
[2023-07-15 13:53] VITALS: BP 140/81; BMI 23.1
== END ==
PROVIDERS: PCP Internal Medicine Cardiovascular Disease; Visit Provider Orthopaedic Surgery
DX: Z98.890 Other specified postprocedural states (principal)
CPT/HCPCS: 99024

== ENCOUNTER → 2025-09-08 13:01 | Outpatient (BNVA) | payer MEDICARE, SELFPAY ==
[2023-07-15 13:53] VITALS: BP 140/81; BMI 23.1
== END ==
PROVIDERS: PCP Internal Medicine Cardiovascular Disease; Visit Provider Orthopaedic Surgery
DX: Z98.890 Other specified postprocedural states (principal)
CPT/HCPCS: 99024; 99213